=== PATIENT | male | born 1945 | race Caucasian/White ===

== ENCOUNTER 2018-01-23 19:55 | Inpatient (IN) | payer OTHER ==
--- OUTSIDE RECORDS SUMMARY | 2018-01-23 20:20 | XMS REPORT | Continuity of Care Document ---
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[place] 018 [facility] coronary artery with other forms of angina pectoris UNK Active 018 [facility] Malignant neoplasm of 06/21/2017 prostate 018 [facility] C61 Active 018 [facility] WEAKNESS OF RT LEG, Active ACUTE RENAL INSUFFIC 018 [facility] DIZZINESS Active 018 [facility] Discharge Diagnosis: 01/03/2017 Claudication in 017 [facility] peripheral vascular disease Discharge Diagnosis: 01/03/2017 Acute leg pain 017 [facility] LEG PAIN Active 017 [facility] INCISION AND DRAINGE OF Active RT LOWER EXTREMI 017 [facility] Discharge Diagnosis: 10/27/2016 Abnormal hemoglobin 017 [facility] ABNORMAL LABS Active 017 [facility] ACUTE OSTEOMYELITIS OF Active LOWER LEG, MAGGOT 017 [facility] WOUND INFECTION Active 017 [facility] LE EDEMA/LE PAIN Active 017 [facility] REPLACE PICC LINE (PICC Active LINE COMING OUT) 017 [facility] MRSA<sup>1, 2, 3, Active Problem 08/06/2017 Problem 4</sup> 017 added by [facility] Discern Expert. ACUTE OSTEOMYELITIS OF Active RIGHT FOOT, SURGI 017 [facility] WEAKNESS Active 017 [facility] MRSA<sup>1, 2, 3</sup> Active Problem 06/18/2016 Problem MH 015 added by [facility] Discern Expert. FOOT PAIN Active 015 [facility] COMPLICATED CELLULITIS Active 015 [facility] MRSA<sup>1, 2</sup> Active Problem 01/29/2015 Problem MH 015 added by [facility] Discern Expert. LEFT FOOT CELLULITIS, Active PUNCTURE WOUND INF 015 [facility] LEFT 2 ND TOE Active CELLULITIS 013 [facility] TOE INFECTION Active 013 [facility] LEFT TOE CELLULITIS Active 013 [facility] LEFT FOOT INJURY Active 013 [facility] CKD Active Problem 03/08/2017 2.16.840.1. [id number] MRSA infection Active Diagnosis 03/08/2017 2.16.840.1. [id number] 1.11.91603 Foot infection Active Diagnosis 01/10/2017 2.16.840.1. [id number] 1.11.11774 DM Active Problem 03/08/2017 2.16.840.1. 776457.4.39 1.11.33363 HTN Active Problem 03/08/2017 2.16.840.1. 623992.4.39 1.11.02477 Arthritis Active Problem 03/08/2017 2.16.840.1. 388604.4.39 1.11.25814 Hyperlipidemia Active Problem 03/08/2017 2.16.840.1. 862403.4.39 1.11.42112 Hypercholesterolemia Active Problem 03/08/2017 2.16.840.1. 428881.4.39 1.11.30951 Heart disease Active Problem 03/08/2017 2.16.840.1. 072791.4.39 1.11.57144 DM2 Active Diagnosis 01/10/2017 2.16.840.1. 003433.4.39 1.11. Chronic osteomyelitis Active Diagnosis 03/08/2017 2.16.840.1. 237745.4.39 1.11. Absence of toe of left Active Problem 06/19/2017 [facility] Chronic ulcer of great Active Problem 06/19/2017 [facility] toe of left foot with Podiatry fat layer exposed Assoc DM neuro manif type II Active Problem 06/19/2017 [facility] Onychomycosis Active Problem 06/19/2017 [facility] Exostosis of bone of Active Problem 06/19/2017 [facility] Soft tissue mass Active Problem 06/19/2017 [facility] Type 2 diabetes Active Problem 06/19/2017 [facility] mellitus with foot [facility] ulcer Assoc Chronic osteomyelitis Active Problem 06/19/2017 [facility] of toe, left [facility] Ulcer of other part of Active Problem 06/19/2017 [facility] Blister Active Problem 06/19/2017 [facility] Cellulitis of left Active Problem 06/19/2017 [facility] lower limb [facility] Osteomyelitis of right Active Problem 06/19/2017 [facility] foot, unspecified type [facility] Dehiscence of Active Problem 06/19/2017 [facility] amputation stump [facility] Abscess of foot Active Problem 06/19/2017 [facility] Osteomyelitis of foot, Active Diagnosis 09/20/2016 2.16.840.1. right, acute [id number] 1.11.33289 Sepsis Active Diagnosis 09/13/2016 2.16.840.1. [id number] 1.11.30129 Non-pressure chronic Active Diagnosis 09/20/2016 2.16.840.1. ulcer of other part of 575627.4.39 right foot with 1.11.66532 unspecified severity CRISTINA Active Diagnosis 12/07/2016 2.16.840.1. [id number] 1.11.73496 Neuropathy in diabetes Active Diagnosis 09/20/2016 2.16.840.1. [id number] 1.11.45786 Lower limb amputation, Active Problem 02/04/2015 [facility] other toe [facility] Calcaneovalgus Active Problem 02/04/2015 [facility] Diabetes II with Active Problem 02/04/2015 [facility] Neuropathy [facility] Onychomycosis Active Problem 02/04/2015 [facility] Nonunion Active Problem 02/04/2015 [facility] Ulcer of other part of Active Problem 02/04/2015 [facility] foot [facility] Abscess - Foot/Heel Active Problem 02/04/2015 [facility] Charcot''s joint of Active Problem 06/19/2017 [facility] right ankle [facility] Right ankle instability Active Problem 06/19/2017 [facility] Charcot foot due to Active Problem 06/19/2017 [facility] diabetes mellitus [facility] Weakness generalized Active Problem 08/06/2017 [facility] Diabetes Active Problem 08/06/2017 [facility] SOBOE (<span Active Problem 08/06/2017 ID="[id number]">Confi [facility] rmed</span>) HTN - Hypertension Active Problem 08/06/2017 [facility] Hyperlipidemia Active Problem 08/06/2017 [facility] Neuropathy Active Problem 08/06/2017 [facility] Ulcer<sup>4</sup> Active Problem 06/18/2016 right foot [facility] dm2 Active Problem 07/15/2012 [facility] HTN - Hypertension Active Problem 07/15/2012 [facility] Hyperlipidemia Active Problem 07/15/2012 [facility] Neuropathy Active Problem 07/15/2012 [facility] dm2 Active Problem 01/29/2015 [facility] Atherosclerosis of 06/21/2017 aorta [facility] Fatty liver, not 06/21/2017 elsewhere classified [facility] Benign prostatic 06/21/2017 hyperplasia without [facility] lower urinary tract symptoms Bilateral inguinal 06/21/2017 hernia, without [facility] obstruction or gangrene, not specified as recurrent Ulcer<sup>5</sup> Active Problem 08/06/2017 right foot [facility] Stenosis of coronary 08/06/2017 artery stent, initial [facility] encounter Stricture of artery 08/06/2017 [facility] Essential hypertension 08/06/2017 [facility], [facility] Type 2 diabetes 08/06/2017 mellitus without [facility] complications care home use of oral 08/06/2017 hypoglycemic drugs [facility] care home use of 08/06/2017 antithrombotics/antipla [facility] scientific associate use of 08/06/2017 aspirin [facility] Other inspector aligning drug 08/06/2017 therapy [facility] CELLULITIS OF FOOT Active [facility] CELLULITIS NOS Active [facility] CELLULITIS, UNSPECIFIED Active [facility] OTHER SPECIFIED Active DISORDERS OF BONE, [facility] UNSPE NON-PRESSURE CHRONIC Active ULCER OTH PRT UNSP [facility] OTHER ACUTE Active OSTEOMYELITIS, RIGHT [facility] ANKLE A INFECTION FOLLOWING A Active PROCEDURE, INITIAL [facility] ENCOUNTER FOR Active ADJUSTMENT AND [facility] MANAGEMENT PAIN IN LEG, Active UNSPECIFIED [facility] LOCALIZED EDEMA Active [facility] OTHER ACUTE Active OSTEOMYELITIS, [facility] UNSPECIFIED T MYIASIS, UNSPECIFIED Active [facility] OTHER ACUTE Active OSTEOMYELITIS, [facility] UNSPECIFIED S OTH SYMPTOMS AND SIGNS Active MH INVOLVING THE MUS [facility] DISORDER OF KIDNEY AND Active MH URETER, UNSPECIFI [facility] MALIGNANT NEOPLASM OF Active MH PROSTATE [facility] Medications Medication Details Route Status Patient Ordering Order Source Instructions Provider Date acetaminophen-cod 2 tab, Route: Inactive eine #3 PO, Drug Form: 2017 [facility] TAB, Dosing Weight 134.545, kg, Q4H, PRN Pain Score 7-10, Start date: 04/30/17 9:33:00 [employer], Duration: 30 day, Stop date: 05/30/17 9:32:00 CDTNotes: Do not exceed 4gm/day of acetaminophen. (Same as: Tylenol with Codeine # 3) Ondansetron 4 mg, 2 mL, Inactive Route: IVP, 2017 [facility] Drug form: INJ, Q8H, Dosing Weight 134.545, kg, PRN Nausea & Vomiting, Start date: 04/30/17 9:33:00 [employer], Duration: 30 day, Stop date: 05/30/17 9:32:00 CDTNotes: (Same as: [place]) MEDICATION WASTE Product Size: 4 mg Product Wasted: ___ mg Acetaminophen 325 mg, 1 tab, Inactive Route: PO, 2017 [facility] Drug form: TAB, Q4H, Dosing Weight 134.545, kg, PRN Pain Score 4-6, Start date: 04/30/17 9:33:00 [employer], Duration: 30 day, Stop date: 05/30/17 9:32:00 CDTNotes: Do not exceed 4 gm/day. (Same as: Tylenol) Sodium Chloride 750 mL, Rate: Inactive 0.9% IV 750 mL 75 ml/hr, 2017 [facility] Infuse over: 10 hr, Route: IV, Dosing Weight 134.545 kg, Total Volume: 750, Start date: 04/30/17 9:33:00 [employer], Duration: 10 hr, Stop date: 04/30/17 19:32:00 [employer], 2.61, m2 Sodium Chloride 403.635 mL, Inactive 0.9% (Bolus) IV Route: IV, 2017 [facility] ONCE, Dosing Weight 134.545 kg, Start date: 04/30/17 7:32:00 [employer], Stop date: 04/30/17 7:32:00 [employer] Sodium Chloride 1,000 mL, Inactive 0.9% IV 1,000 mL Rate: 100 2017 [facility] ml/hr, Infuse over: 10 hr, Route: IV, Dosing Weight 134.545 kg, Total Volume: 1,000, Start date: 04/30/17 7:32:00 [employer], Duration: 30 day, Stop date: 05/30/17 7:31:00 CDT, 2.61, m2 Tamsulosin 0.4 mg=1 cap, Active hydrochloride 0.4 PO, Daily, # 2018 MG Oral Capsule 30 cap, 0 [Flomax] Refill(s) Amlodipine 5 MG / 1 tab, PO, Active Hydrochlorothiazi Daily, # 30 2017 de 25 MG / tab, 0 valsartan 160 MG Refill(s) Oral Tablet Visipaque 100 mL, Route: Inactive IV, Drug Form: 2017 [facility] SOLN, ONCE, Start date: 03/21/17 10:32:00 [employer], Stop date: 03/21/17 10:32:00 CSTNotes: (Same as: Visipaque). WASTE: F/P - Black; E - Municipal Trash Bin Furosemide 20 MG 20 mg, 1 tab, No Longer Oral Tablet Route: PO, Active 2017 [facility] [Lasix] Drug form: TAB, Daily, Dosing Weight 136.364, kg, Start date: 03/10/17 9:00:00 [employer], Duration: 30 day, Stop date: 04/08/17 9:00:00 CSTNotes: (Same as: Lasix) May cause GI upset. Give with food or milk. Fenofibrate 145 145 mg, 1 tab, No Longer MG Oral Tablet Route: PO, Active 2017 Drug form: TAB, Daily, Dosing Weight 136.364, kg, Start date: 03/10/17 9:00:00 [employer], Duration: 30 day, Stop date: 04/08/17 9:00:00 CSTNotes: (Same as: Tricor) Plavix 75 mg, 1 tab, No Longer Route: PO, Active 2017 [facility] Drug form: TAB, Daily, Dosing Weight 136.364, kg, Start date: 03/10/17 9:00:00 [employer], Duration: 30 day, Stop date: 04/08/17 9:00:00 CSTNotes: (Same As: Plavix) aspirin 81 mg 81 mg, 1 tab, No Longer tablet, enteric Route: PO, Active 2017 [facility] coated Drug form: ECTAB, Daily, Dosing Weight 136.364, kg, Start date: 03/10/17 9:00:00 [employer], Duration: 30 day, Stop date: 04/08/17 9:00:00 CSTNotes: Do not crush or chew. (Same As: Ecotrin) atorvastatin 40 mg, 1 tab, Inactive Route: PO, 2017 [facility] Drug form: TAB, Bedtime, Dosing Weight 136.364, kg, Start date: 03/09/17 21:00:00 [employer], Duration: 30 day, Stop date: 04/07/17 21:00:00 CSTNotes: (Same as: Lipitor) gabapentin 300 MG 300 mg, 1 cap, Inactive Oral Capsule Route: PO, 2017 [facility] Drug form: CAP, TID, Dosing Weight 136.364, kg, Start date: 03/09/17 13:00:00 [employer], Duration: 30 day, Stop date: 04/08/17 9:00:00 CSTNotes: (Same as: Neurontin) Insulin Lispro 4 unit, 0.04 Inactive mL, Route: 2017 [facility] SUB-Q, Drug form: SOLN, TID-Before Meals, Dosing Weight 136.364, kg, PRN Blood Glucose Results, Start date: 03/09/17 9:49:00 [employer], Duration: 30 day, Stop date: 04/08/17 9:48:00 CSTNotes: Roll in palms of hands gently; Do not shake `vigorously. (Same as: Humalog ) "Single Patient Use Only " WASTE: F/P - Black; E - Municipal Trash Bin Stable for 28 days at room temperature. Expires in days from Date Dextrose 50% 12.5 gm, 25 Inactive Syringe mL, Route: 2017 [facility] IVP, Drug Form: INJ, Dosing Weight 136.364, kg, PRN, PRN Blood Glucose Results, Start date: 03/09/17 9:49:00 [employer], Duration: 30 day, Stop date: 04/08/17 9:48:00 [employer] Glucagon 1 mg, Route: Inactive IM, Drug form: 2017 [facility] PDR/INJ, PRN, Dosing Weight 136.364, kg, PRN Blood Glucose Results, Start date: 03/09/17 9:49:00 [employer], Duration: 30 day, Stop date: 04/08/17 9:48:00 [employer] Saline Flush 0.9% 10 ml, Route: Inactive IVP, Drug 2017 [facility] Form: INJ, Dosing Weight 136.364, kg, Q12H, Start date: 03/09/17 9:00:00 [employer], Duration: 30 day, Stop date: 04/07/17 21:00:00 CSTNotes: (Same as: BD Posiflush) aspirin 81 mg 81 mg, 1 tab, Inactive tablet, enteric Route: PO, 2017 [facility] coated Drug form: ECTAB, Daily, Dosing Weight 136.364, kg, Start date: 03/09/17 9:00:00 [employer], Stop date: 03/09/17 12:07:00 CSTNotes: Do not crush or chew. (Same As: Ecotrin) pneumococcal 0.5 mL, Route: Inactive capsular IM, Drug Form: 2017 [facility] polysaccharide INJ, Daily, type 1 vaccine / Start date: pneumococcal 03/09/17 capsular 9:00:00 [employer], polysaccharide Duration: 1 type 10A vaccine doses or / pneumococcal times, Stop capsular date: 03/09/17 polysaccharide 9:00:00 type 11A vaccine CSTNotes: / pneumococcal (Same as: capsular Pneumovax 23) polysaccharide Refrigerate type 12F vaccine / pneumococcal capsular polysacchar Saline Flush 0.9% 10 ml, Route: Inactive IVP, Drug 2017 [facility] Form: INJ, Dosing Weight 136.364, kg, PRN, PRN Line Flush, Start date: 03/09/17 0:31:00 [employer], Duration: 30 day, Stop date: 04/08/17 0:30:00 CSTNotes: (Same as: BD Posiflush) Labetalol 10 mg, 2 mL, Inactive Route: IVP, 2017 [facility] Drug form: INJ, Q10Min, Dosing Weight 136.364, kg, PRN Hypertension, For SBP > 180 mmHg and/or DBP > 105 mmHg, Priority: Routine, Start date: 03/09/17 0:31:00 [employer], Duration: 30 day, Stop date: 04/08/17 0:30:00 CSTNotes: (Same as: Normodyne, Trandate) Push over 2 minutes Give bolus over 2-3 minutes. Aspirin 81 mg, 1 tab, No Longer Route: PO, Active 2017 [facility] Drug form: ECTAB, ONCE, Dosing Weight 136.364, kg, Priority: STAT, Start date: 03/08/17 23:18:00 [employer], Stop date: 03/08/17 23:18:00 CSTNotes: Do not crush or chew. (Same As: Ecotrin) NS (Bolus) IV 1,000 mL, Inactive 1,000 ml/hr, 2017 [facility] Infuse Over: 1 hr, Route: IV, 1,000, Drug form: INJ, ONCE, Priority: STAT, Dosing Weight 136.364 kg, Start date: 03/08/17 21:27:00 [employer], Stop date: 03/08/17 21:27:00 [employer] Saline Flush 0.9% 10 mL, Route: No Longer IVP, Drug Active 2017 [facility] Form: INJ, Dosing Weight 136.364, kg, PRN, PRN Line Flush, Start date: 03/08/17 14:32:00 [employer], Duration: 30 day, Stop date: 04/07/17 14:31:00 CSTNotes: (Same as: BD Posiflush) Cipro 1 tablet Orally Active 500 MG Orally Has..840.1 Twice a day 2016 .767250.4. 391. 68 Doxycycline 1 capsule Orally Active 100 MG Orally Hasan ..840.1 Hyclate Once a day 2016 .991054.4. 391.225 68 Doxycycline 1 capsule Orally Active 100 MG Orally Hasan 840.1 Hyclate Once a day 2016 .797512.4. [id number] 68 tramadol 50 mg 50 mg=1 tab, Active oral tablet PO, Q12H, X 5 2016 day, # 10 tab, 0 Refill(s) vancomycin 1 g 1.25 gm, IV, Active intravenous Q12H, X 42 2016 injection day, # 42 bag, 0 Refill(s), other heparin sodium, 5,000 unit, 1 No Longer porcine 2500 mL, Route: Active 2016 [facility] UNT/ML Injectable SUB-Q, Drug Solution form: INJ, Q8H, Dosing Weight 129.091, kg, Start date: 12/02/16 0:00:00 CDT, Duration: 30 day, Stop date: 12/31/16 16:00:00 CDTNotes: porcine heparin RN-Do not give RN-Do not Inactive vanc till trough give vanc till 2016 [facility] drawn12/01/16@10:3 trough 0 drawn12/01/16@1 0:30, Attn:RN, Drug form: MISC, Route: MISC, ONCE, 12/01/16 10:00:00 CDT, Stop date: 12/01/16 10:00:00 CDT Furosemide 20 MG 20 mg, 1 tab, No Longer Oral Tablet Route: PO, Active 2016 [facility] [Lasix] Drug form: TAB, Daily, Dosing Weight 129.091, kg, Start date: 12/01/16 9:00:00 CDT, Duration: 30 day, Stop date: 12/30/16 9:00:00 CDTNotes: (Same as: Lasix) May cause GI upset. Give with food or milk. Fenofibrate 145 145 mg, 1 tab, No Longer MG Oral Tablet Route: PO, Active 2016 [facility] Drug form: TAB, Daily, Dosing Weight 129.091, kg, Start date: 12/01/16 9:00:00 CDT, Duration: 30 day, Stop date: 12/30/16 9:00:00 CDTNotes: (Same as: Tricor) Plavix 75 mg, 1 tab, No Longer Route: PO, Active 2016 [facility] Drug form: TAB, Daily, Dosing Weight 129.091, kg, Start date: 12/01/16 9:00:00 CDT, Duration: 30 day, Stop date: 12/30/16 9:00:00 CDTNotes: (Same As: Plavix) aspirin 81 mg 81 mg, 1 tab, No Longer tablet, enteric Route: PO, Active 2016 [facility] coated Drug form: ECTAB, Daily, Dosing Weight 129.091, kg, Start date: 12/01/16 9:00:00 CDT, Duration: 30 day, Stop date: 12/30/16 9:00:00 CDTNotes: Do not crush or chew. (Same As: Ecotrin) Hydrochlorothiazi 25 mg, 1 tab, No Longer de Route: PO, 2016 [facility] Drug form: TAB, Daily, Dosing Weight 129.091, kg, Start date: 12/01/16 9:00:00 CDT, Duration: 30 day, Stop date: 12/30/16 9:00:00 CDTNotes: (Same as: Hydrodiuril) With food. potassium 10 mEq, 1 tab, No Longer chloride 10 mEq Route: PO, 2016 [facility] oral tablet, Drug form: extended release ERTAB, Daily, Dosing Weight 129.091, kg, Start date: 12/01/16 9:00:00 CDT, Duration: 30 day, Stop date: 12/30/16 9:00:00 CDTNotes: (Same as: K-Dur 10) "Do Not Crush" With food and full glass of water Amlodipine 10 MG 1 tab, Route: No Longer / valsartan 320 PO, Dosing Active 2016 [facility] Oral Tablet Weight 129.091, kg, Daily, Start date: 12/01/16 9:00:00 CDT, Duration: 30 day, Stop date: 12/30/16 9:00:00 CDT valsartan 320 mg, 2 tab, No Longer Route: PO, 2016 [facility] Drug form: TAB, Daily, Start date: 11/30/16 21:00:00 CDT, Duration: 30 day, Stop date: 12/30/16 9:00:00 CDTNotes: Same as Reillyvan gabapentin 300 MG 300 mg, 1 cap, No Longer Oral Capsule Route: PO, Active 2016 [facility] Drug form: CAP, TID, Dosing Weight 129.091, kg, Start date: 11/30/16 21:00:00 CDT, Duration: 30 day, Stop date: 12/30/16 17:00:00 CDTNotes: (Same as: Neurontin) insulin glargine 20 unit, 0.2 No Longer mL, Route: Active 2016 [facility] SUB-Q, Drug form: SOLN, Bedtime, Start date: 11/30/16 21:00:00 CDT, Duration: 30 day, Stop date: 12/29/16 21:00:00 CDTNotes: (Same as: Lantus) Do not hold insulin without contacting prescriber WASTE: F/P - Black; E - Municipal Trash Bin "single patient use only" atorvastatin 40 mg, 1 tab, No Longer Route: PO, Active 2016 [facility] Drug form: TAB, Bedtime, Dosing Weight 129.091, kg, Start date: 11/30/16 21:00:00 CDT, Duration: 30 day, Stop date: 12/29/16 21:00:00 CDTNotes: (Same as: Lipitor) amLODIPine 10 mg, 2 tab, No Longer Route: PO, Active 2016 [facility] Drug form: TAB, Daily, Start date: 11/30/16 21:00:00 CDT, Duration: 30 day, Stop date: 12/30/16 9:00:00 CDTNotes: (Same as: Norvasc) Insulin Glargine 20 unit, Inactive 100 UNT/ML Route: SUB-Q, 2016 [facility] Injectable Bedtime, Solution Dosing Weight 129.091, kg, Start date: 11/30/16 21:00:00 CDT, Duration: 30 day, Stop date: 12/29/16 21:00:00 CDT Docusate Sodium 100 mg, 1 cap, No Longer 100 MG Oral Route: PO, Active 2016 [facility] Capsule Drug form: CAP, BID, Dosing Weight 129.091, kg, PRN Constipation, Start date: 11/30/16 17:31:00 CDT, Duration: 30 day, Stop date: 12/30/16 17:30:00 CDTNotes: (Same as: Colace) (Do Not Crush) vancomycin + 1,250 mg, No Longer sodium chloride Route: IVPB, Active 2016 [facility] 0.9% 250 mL INJ [id number], Start (for IV set) 250 date: 11/30/16 mL 11:00:00 CDT, Duration: 30 day, Stop date: 12/29/16 23:00:00 CDT, ABX Indication: Skin/Soft Tissue InfectionNotes : TIME CRITICAL MEDICATION (Same As: Vancocin) Infusion rate 2000 mg: infuse over 2.5 hours MEDICATION WASTE Product Size: 1000 mg Product Wasted: ___ mg influenza virus 0.5 mL, Route: Inactive vaccine, IM, Drug Form: 2016 [facility] inactivated SUSP, Daily, Start date: 11/30/16 9:00:00 CDT, Duration: 1 doses or times, Stop date: 11/30/16 9:00:00 CDTNotes: (Same as: Fluzone Quadrivalent, Fluarix Quadrivalent) For 3 years of age and older (0.5 mL IM) Shake well before use vancomycin 1.5 gm, 250 Inactive mL, Route: 2016 [facility] IVPB, Drug form: INJ, ONCE, Start date: 11/29/16 22:42:00 CDT, Stop date: 11/29/16 22:42:00 CDT, ABX Indication: Skin/Soft Tissue InfectionNotes : TIME CRITICAL MEDICATION Same as: Vancocin-NS (premixed) Infusion rate 2000 mg: infuse over 2.5 hours 3 ML insulin 34units, Active degludec 100 SUB-Q, 2016 [facility] UNT/ML Pen Bedtime, 0 Injector Refill(s) [Tresiba] Insulin Lispro 1 unit, 0.01 No Longer mL, Route: Active 2016 [facility] SUB-Q, Drug form: SOLN, TID-Before Meals, Dosing Weight 87.727, kg, PRN Blood Glucose Results, Start date: 11/29/16 21:35:00 CDT, Duration: 30 day, Stop date: 12/29/16 21:34:00 CDTNotes: Roll in palms of hands gently; Do not shake `vigorously. (Same as: Humalog ) "Single Patient Use Only " WASTE: F/P - Black; E - Municipal Trash Bin Stable for 28 days at room temperature. Expires in days from Date Dextrose 50% 25 gm, 50 mL, No Longer Syringe Route: IVP, Active 2016 [facility] Drug Form: INJ, Dosing Weight 87.727, kg, PRN, PRN Blood Glucose Results, Start date: 11/29/16 21:35:00 CDT, Duration: 30 day, Stop date: 12/29/16 21:34:00 CDT Glucagon 1 mg, Route: No Longer IM, Drug form: Active 2016 [facility] PDR/INJ, PRN, Dosing Weight 87.727, kg, PRN Blood Glucose Results, Start date: 11/29/16 21:35:00 CDT, Duration: 30 day, Stop date: 12/29/16 21:34:00 CDT Zosyn 3.375 gm, No Longer Route: IVPB, Active 2016 [facility] [id number], Dosing Weight 87.727, kg, CrCl >=20 ml/min infuse over 4 hours, Start date: 11/29/16 21:00:00 CDT, Duration: 10 day, Stop date: 12/10/16 0:00:00 CDT, ABX Indication: Skin/Soft Tissue InfectionNotes : (Same as: Zosyn) Dosing based on Piperacillin component MEDICATION WASTE Product Size: 3375 mg Product Wasted: ___ mg Vancomycin 1 ea, Route: No Longer FABIAAN STOVALL, Active 2016 [facility] Dosing Weight 87.727, kg, Start date: 11/29/16 21:00:00 CDT, day, Stop date: 11/29/16 21:00:00 CDT, Pharmacy to dose, ABX Indication: Skin/Soft Tissue Infection Ondansetron 4 mg, 2 mL, No Longer Route: IVP, Active 2016 [facility] Drug form: INJ, Q6H, Dosing Weight 87.727, kg, PRN Nausea & Vomiting, Start date: 11/29/16 20:55:00 CDT, Duration: 30 day, Stop date: 12/29/16 20:54:00 CDTNotes: (Same as: [place]) MEDICATION WASTE Product Size: 4 mg Product Wasted: ___ mg Acetaminophen 325 mg, 1 tab, No Longer Route: PO, Active 2016 [facility] Drug form: TAB, Q4H, Dosing Weight 87.727, kg, PRN Pain Score 4-6, Start date: 11/29/16 20:55:00 CDT, Duration: 30 day, Stop date: 12/29/16 20:54:00 CDTNotes: Do not exceed 4 gm/day. (Same as: Tylenol) Morphine 2 mg, 1 mL, No Longer Route: IVP, Active 2016 [facility] Drug form: SOLN, Q4H, Dosing Weight 87.727, kg, PRN Pain Score 7-10, Start date: 11/29/16 20:55:00 CDT, Duration: 30 day, Stop date: 12/29/16 20:54:00 CDT Vantin 1 tablet Orally Active 200 MG Orally Aguilar .16.840.1 every 12 hrs 2016 .[id number]. [id number] Saline Flush 0.9% 10 mL, Route: Inactive IVP, Drug 2016 [facility] Form: INJ, Dosing Weight 87.727, kg, PRN, PRN Line Flush, Start date: 10/24/16 10:37:00 CDT, Duration: 30 day, Stop date: 11/23/16 10:36:00 CDTNotes: (Same as: BD Posiflush) Ciprofloxacin 500 500 mg=1 tab, Active MG Oral Tablet PO, Q12H, X 14 2016 [Cipro] day, # 28 tab, 1 Refill(s) Acetaminophen 300 1 - 2 tab, PO, Active MG / Codeine Q6H, PRN Pain, 2016 Phosphate 30 MG X 4 day, # 32 Oral Tablet tab, 0 [Tylenol with Refill(s) Codeine #3] ceFAZolin 2 g/100 2 bd=793 mL, Active mL-NaCl 0.9% IVPB, Q8H, # 2017 [facility] intravenous 10116 mL, 0 solution Refill(s) Ancef 2 gm, 100 mL, No Longer Route: IVPB, Active 2016 [facility] Drug form: INJ, Q8H, Dosing Weight 129.9, kg, Start date: 09/19/16 17:00:00 CDT, Duration: 14 day, Stop date: 10/03/16 13:00:00 CDT, ABX Indication: Bone/Joint InfectionNotes : Same as: Ancef WAIT for vanco WAIT for Inactive trough draw prior vanco trough 2016 to giving dose on draw prior to 09/19 giving dose on 09/19, reminder, Drug form: MISC, Route: MISC, ONCE, 09/19/16 16:30:00 CDT, Stop date: 09/19/16 16:30:00 CDT Vancomycin 1,500 mg, 250 No Longer mL, Route: Active 2016 [facility] IVPB, Drug form: INJ, Q12H, Dosing Weight 131.818, kg, Start date: 09/17/16 17:00:00 CDT, Duration: 14 day, Stop date: 10/01/16 5:30:00 CDT, ABX Indication: Bone/Joint InfectionNotes : TIME CRITICAL MEDICATION Same as: Vancocin-NS (premixed) Infusion rate 2001 mg: infuse over 2.5 hours ondansetron Route: IV, Inactive (ANES) Drug form: 2016 [facility] INJ, ONCE, Stop date: 09/17/16 9:20:00 CDT fentaNYL (ANES) Route: IV, Inactive Drug form: 2016 [facility] INJ, ONCE, Stop date: 09/17/16 9:20:00 CDT lidocaine (ANES) Route: IV, Inactive Drug form: 2016 [facility] INJ, ONCE, Stop date: 09/17/16 9:20:00 CDT propofol (ANES) Route: IV, Inactive Drug form: 2016 [facility] INJ, ONCE, Stop date: 09/17/16 9:20:00 CDT Streptococcus 0.5 mL, Route: Inactive pneumoniae IM, Drug Form: 2016 [facility] serotype 1 INJ, Daily, capsular antigen Start date: diphtheria [id number] 09/17/16 protein conjugate 9:00:00 CDT, vaccine / Duration: 1 Streptococcus doses or pneumoniae times, Stop serotype 14 date: 09/17/16 capsular antigen 9:00:00 diphtheria [id number] CDTNotes: protein conjugate Shake well vaccine / prior to use Streptococcus (Same as: pneumoniae Prevnar 13) serotype 18C capsular antigen d vancomycin (ANES) Route: IV, Inactive (ANES) Drug form: 2016 [facility] INJ, Start date: 09/17/16 8:57:00 CDT, Stop date: 09/17/16 9:57:00 CDT Lactated Ringers 1,000 mL, No Longer 1,000 mL Rate: 25 Active 2016 [facility] ml/hr, Infuse over: 40 hr, Route: IV, Dosing Weight 131.818 kg, Total Volume: 1,000, Start date: 09/17/16 8:51:00 CDT, Duration: 1 day, Stop date: 09/18/16 8:50:00 CDT LR 1000 mL INJ Route: IV, Inactive (ANES) Total Volume: 2016 [facility] 1,000, Start date: 09/17/16 8:41:00 CDT, Stop date: 09/17/16 9:41:00 CDT Vancomycin 1,000 mg, Inactive Route: IVPB, 2016 [facility] [id number], Dosing Weight 131.818, kg, Start date: 09/16/16 11:00:00 CDT, Duration: 1 day, Stop date: 09/16/16 11:00:00 CDT, ABX Indication: Bone/Joint InfectionNotes : TIME CRITICAL MEDICATION (Same As: Vancocin) Infusion rate 2001 mg: infuse over 2.5 hours MEDICATION WASTE Product Size: 1000 mg Product Wasted: ___ mg pneumococcal 0.5 mL, Route: Inactive capsular IM, Drug Form: 2016 [facility] polysaccharide INJ, Daily, type 1 vaccine / Start date: pneumococcal 09/16/16 capsular 9:00:00 CDT, polysaccharide Stop date: type 10A vaccine 09/16/16 / pneumococcal 12:00:00 capsular CDTNotes: polysaccharide (Same as: type 11A vaccine Pneumovax 23) / pneumococcal Refrigerate capsular polysaccharide type 12F vaccine / pneumococcal capsular polysacchar Streptococcus 0.5 mL, Route: Inactive pneumoniae IM, Daily, 2016 [facility] serotype 1 Start date: capsular antigen 09/16/16 diphtheria [id number] 9:00:00 CDT, protein conjugate Duration: 1 vaccine / doses or Streptococcus times, Stop pneumoniae date: 09/16/16 serotype 14 9:00:00 CDT capsular antigen diphtheria [id number] protein conjugate vaccine / Streptococcus pneumoniae serotype 18C capsular antigen d Hydrochlorothiazi 25 mg, 1 tab, No Longer de Route: PO, Active 2016 [facility] Drug form: TAB, Daily, Dosing Weight 131.818, kg, Start date: 09/16/16 9:00:00 CDT, Duration: 30 day, Stop date: 10/15/16 9:00:00 CDTNotes: (Same as: Hydrodiuril) With food. valsartan 320 mg, 2 tab, No Longer Route: PO, Active 2016 [facility] Drug form: TAB, Daily, Dosing Weight 131.818, kg, Start date: 09/16/16 9:00:00 CDT, Duration: 30 day, Stop date: 10/15/16 9:00:00 CDTNotes: Same as Alexandra Amlodipine 10 mg, 2 tab, No Longer Route: PO, Active 2016 [facility] Drug form: TAB, Daily, Dosing Weight 131.818, kg, Start date: 09/16/16 9:00:00 CDT, Duration: 30 day, Stop date: 10/15/16 9:00:00 CDTNotes: (Same as: Norvasc) gabapentin 300 MG 300 mg, 1 cap, No Longer Oral Capsule Route: PO, Active 2016 [facility] Drug form: CAP, TID, Dosing Weight 131.818, kg, Start date: 09/16/16 9:00:00 CDT, Duration: 30 day, Stop date: 10/15/16 21:00:00 CDTNotes: (Same as: Neurontin) Plavix 75 mg, 1 tab, No Longer Route: PO, 2016 [facility] Drug form: TAB, Daily, Dosing Weight 131.818, kg, Start date: 09/16/16 9:00:00 CDT, Duration: 30 day, Stop date: 10/15/16 9:00:00 CDTNotes: (Same As: Plavix) doxycycline 100 mg=1 cap, No Longer hyclate 100 MG PO, Q12H, 0 2016 [facility] Oral Capsule Refill(s) Furosemide 20 MG 20 mg=1 tab, Active Oral Tablet PO, Daily, # 2016 [Lasix] 30 tab, 0 Refill(s) multivitamin 1 tab, PO, Active Daily, 0 2016 Refill(s) atorvastatin 40 40 mg=1 tab, Active mg oral tablet PO, Bedtime, # 2016 30 tab, 0 Refill(s) potassium 10 mEq=1 cap, Active chloride 10 mEq PO, Daily, 0 2016 oral capsule, Refill(s) extended release aspirin 81 mg 81 mg, 1 tab, No Longer tablet, enteric Route: PO, 2016 [facility] coated Drug form: ECTAB, Q24H, Dosing Weight 131.818, kg, Start date: 09/16/16 4:00:00 CDT, Duration: 30 day, Stop date: 10/15/16 4:00:00 CDTNotes: Do not crush or chew. (Same As: Ecotrin) Saline Flush 0.9% 10 ml, Route: No Longer IVP, Drug Active 2016 [facility] Form: INJ, Dosing Weight 131.818, kg, PRN, PRN Line Flush, Start date: 09/16/16 2:58:00 CDT, Duration: 30 day, Stop date: 10/16/16 2:57:00 CDTNotes: (Same as: BD Posiflush) Sodium Chloride 1,000 mL, No Longer 0.154 MEQ/ML Rate: 125 2016 [facility] Injectable ml/hr, Infuse Solution over: 8 hr, Route: IV, Dosing Weight 131.818 kg, Total Volume: 1,000, Start date: 09/16/16 2:58:00 CDT, Duration: 30 day, Stop date: 10/16/16 2:57:00 CDT Morphine 2 mg, 1 mL, No Longer Route: IVP, Active 2016 [facility] Drug form: SOLN, Q3H, Dosing Weight 131.818, kg, PRN Pain Score 7-10, Start date: 09/16/16 2:58:00 CDT, Duration: 30 day, Stop date: 10/16/16 2:57:00 CDT Insulin, Aspart, 8 unit, 0.08 No Longer Human mL, Route: Active 2016 [facility] SUB-Q, Drug form: SOLN, TID-Before Meals, Dosing Weight 131.818, kg, PRN Blood Glucose Results, Start date: 09/16/16 2:56:00 CDT, Duration: 30 day, Stop date: 10/16/16 2:55:00 CDTNotes: Roll in palms of hands gently; Do not shake vigorously. (Same as: NovoLOG) "single patient use only" WASTE: F/P - Black; E - Municipal Trash Bin Stable for 28 days at room temperature. Expires in days from Date Dextrose 50% 12.5 gm, 25 No Longer Syringe mL, Route: Active 2016 [facility] IVP, Drug Form: INJ, Dosing Weight 131.818, kg, PRN, PRN Blood Glucose Results, Start date: 09/16/16 2:56:00 CDT, Duration: 30 day, Stop date: 10/16/16 2:55:00 CDT Glucagon 1 mg, Route: No Longer IM, Drug form: Active 2016 [facility] PDR/INJ, PRN, Dosing Weight 131.818, kg, PRN Blood Glucose Results, Start date: 09/16/16 2:56:00 CDT, Duration: 30 day, Stop date: 10/16/16 2:55:00 CDT Doxycycline 1 capsule Orally Active 100 MG Orally Hasan .16.840.1 Hyclate every 12 hrs 2016 .[id number]. [id number] 68 Vitamin C 1,000 mg, 2 No Longer tab, Route: Active 2016 [facility] PO, Drug form: TAB, Daily, Dosing Weight 132, kg, Start date: 06/16/16 9:00:00 CDT, Duration: 30 day, Stop date: 07/15/16 9:00:00 CDTNotes: (Same as: Vitamin C) Acetaminophen 300 1 tab, PO, No Longer MG / Codeine Q6H, PRN Pain Active 2016 [facility] Phosphate 30 MG Score 1-3, # Oral Tablet 24 tab, 0 [Tylenol with Refill(s) Codeine #3] vancomycin 1.5 1,500 kv=762 Active g/250 mL-NaCl mL, IVPB, 2016 0.9% intravenous [id number], # 30 solution bag, 1 Refill(s) Docusate Sodium 100 mg=1 cap, Active 100 MG Oral PO, BID, PRN 2016 [facility] Capsule Constipation, # 30 cap, 0 Refill(s) Vitamin C 1000 mg 1,000 mg, PO, Active oral tablet Daily, # 30 2016 [facility] tab, 0 Refill(s) Acetaminophen 300 1 tab, Route: Inactive MG / Codeine PO, Drug Form: 2016 [facility] Phosphate 30 MG TAB, Dosing Oral Tablet Weight 132, [Tylenol with kg, Q6H, PRN Codeine #3] Pain Score 1-3, Start date: 06/15/16 11:13:00 CDT, Duration: 30 day, Stop date: 07/15/16 11:12:00 CDTNotes: Do not exceed 4gm/day of acetaminophen. (Same as: Tylenol with Codeine # 3) WAIT for vanco WAIT for Inactive trough draw prior vanco trough 2016 to dose on 06/14 @ draw prior to 11:00 dose on 06/14 @ 11:00, reminder, Drug form: MISC, Route: MISC, ONCE, 06/14/16 10:00:00 CDT, Stop date: 06/14/16 10:00:00 CDT Lovenox 40 mg, 0.4 mL, No Longer Route: SUB-Q, [facility] 2016 [facility] Drug form: INJ, Daily, Dosing Weight 132, kg, Start date: 06/13/16 8:00:00 CDT, Duration: 30 day, Stop date: 07/12/16 8:00:00 CDTNotes: (Same as: Lovenox) Hydralazine 10 mg, 0.5 mL, No Longer Route: IV, 2016 [facility] Drug form: INJ, Q6H, Dosing Weight 132, kg, PRN Elevated BP, Start date: 06/13/16 4:24:00 CDT, Duration: 30 day, Stop date: 07/13/16 4:23:00 CDTNotes: (Same as: Apresoline) Push over 5 minutes Vancomycin 1,500 mg, 250 No Longer mL, Route: [facility] 2016 [facility] IVPB, Drug form: INJ, [id number], Dosing Weight 132, kg, Start date: 06/12/16 21:00:00 CDT, Duration: 30 day, Stop date: 07/12/16 11:00:00 CDTNotes: TIME CRITICAL MEDICATION Same as: Vancocin-NS (premixed) Infusion rate 2001 mg: infuse over 2.5 hours Hydromorphone 0.5 mg, 0.5 No Longer mL, Route: IV, 2016 [facility] Drug form: INJ, Q3H, Dosing Weight 132, kg, PRN Pain Score 7-10, Start date: 06/12/16 17:52:00 CDT, Duration: 30 day, Stop date: 07/12/16 17:51:00 CDT sodium chloride 1,000 mL, No Longer 0.9% 1000 ml INJ Rate: 100 2016 [facility] 1,000 mL ml/hr, Infuse over: 10 hr, Route: IV, Dosing Weight 132 kg, Total Volume: 1,000, Start date: 06/12/16 17:52:00 CDT, Duration: 30 day, Stop date: 07/12/16 17:51:00 CDT Acetaminophen 325 1 tab, Route: No Longer MG / Hydrocodone PO, Drug Form: 2016 [facility] Bitartrate 5 MG TAB, Dosing Oral Tablet Weight 132, kg, Q4H, PRN Pain Score 4-6, Start date: 06/12/16 17:52:00 CDT, Duration: 30 day, Stop date: 07/12/16 17:51:00 CDTNotes: (Same as: [place] 325/5) Do not exceed 4gm/day of acetaminophen. Acetaminophen 325 2 tab, Route: No Longer MG / Hydrocodone PO, Drug Form: Active 2016 [facility] Bitartrate 10 MG TAB, Dosing Oral Tablet Weight 132, kg, Q4H, PRN Pain Score 7-10, Start date: 06/12/16 17:52:00 CDT, Duration: 30 day, Stop date: 07/12/16 17:51:00 CDTNotes: Do not exceed 4gm/day of acetaminophen. (Same as: [place] 325/10) Calcium Chloride 1,000 mL, No Longer 0.0014 MEQ/ML / Rate: 100 Active 2016 [facility] Potassium ml/hr, Infuse Chloride 0.004 over: 10 hr, MEQ/ML / Sodium Route: IV, Chloride 0.103 Dosing Weight MEQ/ML / Sodium 132 kg, Total Lactate 0.028 Volume: 1,000, MEQ/ML Injectable Start date: Solution 06/12/16 17:52:00 CDT, Duration: 30 day, Stop date: 07/12/16 17:51:00 CDT ondansetron Route: IV, Inactive (ANES) Drug form: 2016 [facility] INJ, ONCE, Stop date: 06/12/16 17:51:00 CDT fentaNYL (ANES) Route: IV, Inactive Drug form: 2016 [facility] INJ, ONCE, Stop date: 06/12/16 17:51:00 CDT ceFAZolin (ANES) Route: IV, Inactive (ANES) Drug form: 2016 [facility] INJ, Start date: 06/12/16 17:15:00 CDT, Stop date: 06/12/16 18:15:00 CDT LR 1000 mL INJ Route: IV, Inactive (ANES) Total Volume: 2016 [facility] 1,000, Start date: 06/12/16 17:00:00 CDT, Stop date: 06/12/16 18:00:00 CDT Calcium Chloride 1,000 mL, Inactive 0.0014 MEQ/ML / Rate: 25 2016 [facility] Potassium ml/hr, Infuse Chloride 0.004 over: 40 hr, MEQ/ML / Sodium Route: IV, Chloride 0.103 Dosing Weight MEQ/ML / Sodium 132 kg, Total Lactate 0.028 Volume: 1,000, MEQ/ML Injectable Start date: Solution 06/12/16 13:05:00 CDT, Duration: 30 day, Stop date: 07/12/16 13:04:00 CDT Draw vancomycin Draw Inactive trough level 0-30 vancomycin 2016 min prior to next trough level dose 0-30 min prior to next dose, see order comments, Drug form: MISC, Route: MISC, Q24H, 06/12/16 8:00:00 CDT, Duration: 1 doses or times, Stop date: 06/12/16 8:00:00 CDT hydrocortisone 1 appl, Route: No Longer topical 1% cream TOP, BID, Drug Active 2016 [facility] form: CRM, PRN Itching, Start date: 06/11/16 20:59:00 CDT, Duration: 30 day, Stop date: 07/11/16 20:58:00 CDT sodium chloride 1,000 mL, No Longer 0.9% 1000 ml INJ Rate: 100 Active 2016 [facility] 1,000 mL ml/hr, Infuse over: 10 hr, Route: IV, Dosing Weight 132 kg, Total Volume: 1,000, Start date: 06/11/16 12:51:00 CDT, Duration: 30 day, Stop date: 07/11/16 12:50:00 CDT ondansetron Route: IV, Inactive (ANES) Drug form: 2016 INJ, ONCE, Stop date: 06/11/16 9:11:00 CDT midazolam (ANES) Route: IV, Inactive Drug form: 2016 SOLN, ONCE, Stop date: 06/11/16 9:11:00 CDT fentaNYL (ANES) Route: IV, Inactive Drug form: 2016 INJ, ONCE, Stop date: 06/11/16 9:11:00 CDT lidocaine (ANES) Route: IV, Inactive Drug form: 2016 [facility] INJ, ONCE, Stop date: 06/11/16 9:11:00 CDT propofol (ANES) Route: IV, Inactive Drug form: 2016 [facility] INJ, ONCE, Stop date: 06/11/16 9:11:00 CDT LR 1000 mL INJ Route: IV, Inactive (ANES) Total Volume: 2016 [facility] 1,000, Start date: 06/11/16 8:29:00 CDT, Stop date: 06/11/16 9:29:00 CDT Calcium Chloride 1,000 mL, Inactive 0.0014 MEQ/ML / Rate: 25 2016 [facility] Potassium ml/hr, Infuse Chloride 0.004 over: 40 hr, MEQ/ML / Sodium Route: IV, Chloride 0.103 Dosing Weight MEQ/ML / Sodium 132 kg, Total Lactate 0.028 Volume: 1,000, MEQ/ML Injectable Start date: Solution 06/11/16 8:25:00 CDT, Duration: 30 day, Stop date: 07/11/16 8:24:00 CDT Vancomycin trough Vancomycin Inactive trough, please [address] [place] [address] inform pharmacy of trough level, Drug form: MISC, Route: MISC, ONCE, 06/10/16 20:30:00 CDT, Stop date: 06/10/16 20:30:00 CDT Hydrochlorothiazi 25 mg, 1 tab, No Longer de 25 MG Oral Route: PO, Active 2016 [facility] Tablet Drug form: TAB, Daily, Dosing Weight 132, kg, Start date: 06/10/16 9:00:00 CDT, Duration: 30 day, Stop date: 07/09/16 9:00:00 CDTNotes: (Same as: Hydrodiuril) With food. valsartan 320 mg, 2 tab, No Longer Route: PO, Active 2016 [facility] Drug form: TAB, Daily, Dosing Weight 132, kg, Start date: 06/10/16 9:00:00 CDT, Duration: 30 day, Stop date: 07/09/16 9:00:00 CDTNotes: Same as Diovan Norvasc 10 mg, 2 tab, No Longer Route: PO, Active 2016 [facility] Drug form: TAB, Daily, Dosing Weight 132, kg, Start date: 06/10/16 9:00:00 CDT, Duration: 30 day, Stop date: 07/09/16 9:00:00 CDTNotes: (Same as: Norvasc) Fenofibrate 145 145 mg, 1 tab, No Longer MG Oral Tablet Route: PO, 2016 [facility] Drug form: TAB, Daily, Dosing Weight 132, kg, Start date: 06/10/16 9:00:00 CDT, Duration: 30 day, Stop date: 07/09/16 9:00:00 CDTNotes: (Same as: Tricor) Plavix 75 mg, 1 tab, No Longer Route: PO, 2016 [facility] Drug form: TAB, Daily, Dosing Weight 132, kg, Start date: 06/10/16 9:00:00 CDT, Duration: 30 day, Stop date: 07/09/16 9:00:00 CDTNotes: (Same As: Plavix) aspirin 81 mg 81 mg, 1 tab, No Longer tablet, enteric Route: PO, 2016 [facility] coated Drug form: ECTAB, Daily, Dosing Weight 132, kg, Start date: 06/10/16 9:00:00 CDT, Duration: 30 day, Stop date: 07/09/16 9:00:00 CDTNotes: Do not crush or chew. (Same As: Ecotrin) vancomycin + 2,000 mg, No Longer sodium chloride Route: IVPB, 2016 [facility] 0.9% 500 mL INJ [id number], Start (for IV set) 500 date: 06/09/16 mL 21:00:00 CDT, Duration: 30 day, Stop date: 07/09/16 9:00:00 CDTNotes: TIME CRITICAL MEDICATION (Same As: Vancocin) Infusion rate 2001 mg: infuse over 2.5 hours MEDICATION WASTE Product Size: 1000 mg Product Wasted: ___ mg Lipitor 20 mg, 2 tab, No Longer Route: PO, 2016 [facility] Drug form: TAB, Bedtime, Dosing Weight 132, kg, Start date: 06/09/16 21:00:00 CDT, Duration: 30 day, Stop date: 07/08/16 21:00:00 CDTNotes: (Same As: Lipitor) Metformin 500 mg, 1 tab, No Longer hydrochloride 500 Route: PO, Active 2016 [facility] Oral Tablet Drug form: TAB, BID-Meals, Dosing Weight 132, kg, Start date: 06/09/16 17:00:00 CDT, Duration: 30 day, Stop date: 07/09/16 8:00:00 CDTNotes: (Same as: Glucophage) Take with meal gabapentin 300 MG 300 mg, 1 cap, No Longer Oral Capsule Route: PO, Active 2016 [facility] Drug form: CAP, TID, Dosing Weight 132, kg, Start date: 06/09/16 13:00:00 CDT, Duration: 30 day, Stop date: 07/09/16 9:00:00 CDTNotes: (Same as: Neurontin) Vancomycin 1 ea, Route: Inactive MISC, Drug 2016 [facility] Form: INJ, Dosing Weight 132, kg, ONCALL, Start date: 06/09/16 11:00:00 CDT, Duration: 1 doses or times, Pharmacy to doseNotes: TIME CRITICAL MEDICATION (Same As: Vancocin) Infusion rate 2001 mg: infuse over 2.5 hours MEDICATION WASTE Product Size: 1000 mg Product Wasted: ___ mg Morphine 2 mg, 1 mL, No Longer Route: IVP, Active 2016 [facility] Drug form: INJ, Q4H, Dosing Weight 132, kg, PRN Pain Score 6-10, Start date: 06/09/16 10:11:00 CDT, Duration: 30 day, Stop date: 07/09/16 10:10:00 CDTNotes: (Same as:MORPhine Sulfate) Acetaminophen 325 1 tab, Route: No Longer MG / Hydrocodone PO, Drug Form: Active 2016 [facility] Bitartrate 10 MG TAB, Dosing Oral Tablet Weight 132, [[place] 10/325] kg, Q4H, PRN Pain Score 6-10, Start date: 06/09/16 10:11:00 CDT, Duration: 30 day, Stop date: 07/09/16 10:10:00 CDTNotes: Do not exceed 4gm/day of acetaminophen. (Same as: [place] 325/10) Acetaminophen 325 1 tab, Route: No Longer MG / Hydrocodone PO, Drug Form: Active 2016 [facility] Bitartrate 5 MG TAB, Dosing Oral Tablet Weight 132, [[place] 5/325] kg, Q4H, PRN Pain Score 4-6, Start date: 06/09/16 10:11:00 CDT, Duration: 30 day, Stop date: 07/09/16 10:10:00 CDTNotes: (Same as: [place] 325/5) Do not exceed 4gm/day of acetaminophen. Tylenol 650 mg, 2 tab, No Longer Route: PO, Active 2016 [facility] Drug form: TAB, Q6H, Dosing Weight 132, kg, PRN Pain 1-3/Temp > 100.4 F, Start date: 06/09/16 10:11:00 CDT, Duration: 30 day, Stop date: 07/09/16 10:10:00 CDTNotes: Do not exceed 4 gm/day. (Same as: Tylenol) Insulin, Aspart, 3 unit, 0.03 No Longer Human mL, Route: Active 2016 [facility] SUB-Q, Drug form: SOLN, Bedtime, Dosing Weight 132, kg, PRN Blood Glucose Results, Start date: 06/09/16 9:35:00 CDT, Duration: 30 day, Stop date: 07/09/16 9:34:00 CDTNotes: Roll in palms of hands gently; Do not shake vigorously. (Same as: NovoLOG) "single patient use only" WASTE: F/P - Black; E - Municipal Trash Bin Stable for 28 days at room temperature. Expires in days from Date Glucagon 1 mg, Route: No Longer IM, Drug form: Active 2016 [facility] PDR/INJ, PRN, Dosing Weight 132, kg, PRN Blood Glucose Results, Start date: 06/09/16 9:35:00 CDT, Duration: 30 day, Stop date: 07/09/16 9:34:00 CDT Dextrose 50% 12.5 gm, 25 No Longer Syringe mL, Route: Active 2016 [facility] IVP, Drug Form: INJ, Dosing Weight 132, kg, PRN, PRN Blood Glucose Results, Start date: 06/09/16 9:35:00 CDT, Duration: 30 day, Stop date: 07/09/16 9:34:00 CDT Streptococcus 0.5 mL, Route: Inactive pneumoniae IM, Drug Form: 2016 [facility] serotype 1 INJ, Daily, capsular antigen Start date: diphtheria [id number] 06/09/16 protein conjugate 9:00:00 CDT, vaccine / Stop date: Streptococcus 06/09/16 pneumoniae 11:00:00 serotype 14 CDTNotes: capsular antigen Lightly roll diphtheria [id number] vial (DO NOT protein conjugate SHAKE) before vaccine / administration Streptococcus . (Same as: pneumoniae Prevnar 13) serotype 18C capsular antigen d Vancomycin 1,000 mg, Inactive Route: IVPB, 2016 [facility] [id number], Dosing Weight 132, kg, Start date: 06/09/16 9:00:00 CDT, Duration: 30 day, Stop date: 07/08/16 21:00:00 CDTNotes: TIME CRITICAL MEDICATION (Same As: Vancocin) Infusion rate 2001 mg: infuse over 2.5 hours MEDICATION WASTE Product Size: 1000 mg Product Wasted: ___ mg Zosyn 3.375 gm, No Longer Route: IVPB, Active 2016 [facility] [id number], Dosing Weight 132, kg, CrCl >=20 ml/min infuse over 4 hours, Start date: 06/09/16 8:00:00 CDT, Duration: 30 day, Stop date: 07/09/16 2:30:00 CDTNotes: (Same as: Zosyn) Dosing based on Piperacillin component MEDICATION WASTE Product Size: 3375 mg Product Wasted: ___ mg Atropine 0.5 mg, 5 mL, No Longer Route: IV, Active 2016 [facility] Drug form: INJ, PRN, Dosing Weight 132, kg, PRN Bradycardia, Start date: 06/09/16 3:33:00 CDT, Duration: 30 day, Stop date: 07/09/16 3:32:00 CDT, symptomatic bradycardia HR Nitroglycerin 0.4 0.4 mg, 1 tab, No Longer MG Sublingual Route: SL, Active 2016 [facility] Tablet Drug form: [Nitrostat] TAB, Q5Min, Dosing Weight 132, kg, PRN Chest Pain, Start date: 06/09/16 3:33:00 CDT, Duration: 3 doses or times, Stop date: Limited # of timesNotes: (Same as:Nitroquick, Nitrostat) "Do Not Crush" Sublingual tablet Morphine 2 mg, 1 mL, Inactive Route: IVP, 2016 [facility] Drug form: INJ, Q4H, Dosing Weight 132, kg, PRN Pain Score 7-10, Start date: 06/09/16 3:30:00 CDT, Duration: 30 day, Stop date: 07/09/16 3:29:00 CDTNotes: (Same as:MORPhine Sulfate) Acetaminophen 325 2 tab, Route: Inactive MG / Hydrocodone PO, Drug Form: 2016 [facility] Bitartrate 5 MG TAB, Dosing Oral Tablet Weight 132, kg, Q4H, PRN Pain Score 7-10, Start date: 06/09/16 3:30:00 CDT, Duration: 30 day, Stop date: 07/09/16 3:29:00 CDTNotes: (Same as: [place] 325/5) Do not exceed 4gm/day of acetaminophen. Sodium Chloride 1,000 mL, No Longer 0.154 MEQ/ML Rate: 60 Active 2016 [facility] Injectable ml/hr, Infuse Solution over: 16.7 hr, Route: IV, Dosing Weight 132 kg, Total Volume: 1,000, Start date: 06/09/16 3:30:00 CDT, Duration: 30 day, Stop date: 07/09/16 3:29:00 CDT Saline Flush 0.9% 10 ml, Route: No Longer IVP, Drug Active 2016 [facility] Form: INJ, Dosing Weight 132, kg, PRN, PRN Line Flush, Start date: 06/09/16 3:30:00 CDT, Duration: 30 day, Stop date: 07/09/16 3:29:00 CDTNotes: (Same as: BD Posiflush) Ondansetron 4 mg, 2 mL, No Longer Route: IVP, Active 2016 [facility] Drug form: INJ, Q6H, Dosing Weight 132, kg, PRN Nausea & Vomiting, Start date: 06/09/16 3:30:00 CDT, Duration: 30 day, Stop date: 07/09/16 3:29:00 CDTNotes: (Same as: Zofran) MEDICATION WASTE Product Size: 4 mg Product Wasted: ___ mg Docusate 100 mg, 1 cap, No Longer Route: PO, Active 2016 [facility] Drug form: CAP, BID, Dosing Weight 132, kg, PRN Constipation, Start date: 06/09/16 3:30:00 CDT, Duration: 30 day, Stop date: 07/09/16 3:29:00 CDTNotes: (Same as: Colace) (Do Not Crush) multivitamin See Active Instructions, 2016 Daily, 0 Refill(s) Fenofibrate 145 145 mg=1 tab, Active MG Oral Tablet PO, Daily, # 2016 [facility] 30 tab, 0 Refill(s) Zofran 4 mg, Route: Inactive IVP, Drug 2016 [facility] form: INJ, ONCE, Dosing Weight 131.818, kg, Priority: STAT, Start date: 06/09/16 0:47:00 CDT, Stop date: 06/09/16 0:47:00 CDT Morphine 4 mg, Route: Inactive IVP, ONCE, 2016 Dosing Weight 131.818, kg, Priority: STAT, Start date: 06/09/16 0:47:00 CDT, Stop date: 06/09/16 0:47:00 CDT Zosyn 3.375 gm, No Longer Route: IVPB, Active 2016 [facility] ONCE, Dosing Weight 131.818, kg, Priority: STAT, Start date: 06/08/16 23:20:00 CDT, Stop date: 06/08/16 23:20:00 CDTNotes: (Same as: Zosyn) Dosing based on Piperacillin component MEDICATION WASTE Product Size: 3375 mg Product Wasted: ___ mg Vancomycin 1,000 mg, No Longer Route: IVPB, Active 2016 [facility] ONCE, Dosing Weight 131.818, kg, Priority: STAT, Start date: 06/08/16 23:19:00 CDT, Stop date: 06/08/16 23:19:00 CDTNotes: TIME CRITICAL MEDICATION (Same As: Vancocin) Infusion rate 2001 mg: infuse over 2.5 hours MEDICATION WASTE Product Size: 1000 mg Product Wasted: ___ mg Clindamycin 600 mg, Route: Inactive IVPB, ONCE, 2016 [facility] Dosing Weight 131.818, kg, Priority: STAT, Start date: 06/08/16 23:17:00 CDT, Stop date: 06/08/16 23:17:00 CDT Saline Flush 0.9% 10 mL, Route: No Longer IVP, Drug Active 2016 [facility] Form: INJ, Dosing Weight 131.818, kg, PRN, PRN Line Flush, Start date: 06/08/16 21:49:00 CDT, Duration: 30 day, Stop date: 07/08/16 21:48:00 CDTNotes: (Same as: BD Posiflush) lidocaine (ANES) Route: IV, Inactive Drug form: 2016 [facility] INJ, ONCE, Stop date: 05/16/16 10:35:00 CDT ceFAZolin (ANES) Route: IV, Inactive Drug form: 2016 [facility] INJ, ONCE, Stop date: 05/16/16 10:35:00 CDT midazolam (ANES) Route: IV, Inactive Drug form: 2016 [facility] SOLN, ONCE, Stop date: 05/16/16 10:35:00 CDT ondansetron Route: IV, Inactive (ANES) Drug form: 2016 [facility] INJ, ONCE, Stop date: 05/16/16 10:35:00 CDT dexamethasone Route: IV, Inactive (ANES) Drug form: 2016 [facility] INJ, ONCE, Stop date: 05/16/16 10:35:00 CDT fentaNYL (ANES) Route: IV, Inactive Drug form: 2016 [facility] INJ, ONCE, Stop date: 05/16/16 10:35:00 CDT propofol (ANES) Route: IV, Inactive (ANES) Drug form: 2016 [facility] INJ, Start date: 05/16/16 9:56:00 CDT, Stop date: 05/16/16 10:56:00 CDT LR 1000 mL INJ Route: IV, Inactive (ANES) Total Volume: 2016 [facility] 1,000, Start date: 05/16/16 9:50:00 CDT, Stop date: 05/16/16 10:50:00 CDT Albuterol 0.833 3 mL, Route: Inactive MG/ML / NEB, Dosing 2016 [facility] Ipratropium Weight [place] 0.167 131.932, kg, MG/ML Inhalant ONCE, STAT, Solution Start date: 05/16/16 8:58:00 CDT, Stop date: 05/16/16 8:58:00 CDT Calcium Chloride 1,000 mL, Inactive 0.0014 MEQ/ML / Rate: 25 2016 [facility] Potassium ml/hr, Infuse Chloride 0.004 over: 40 hr, MEQ/ML / Sodium Route: IV, Chloride 0.103 Dosing Weight MEQ/ML / Sodium 131.932 kg, Lactate 0.028 Total Volume: MEQ/ML Injectable 1,000, Start Solution date: 05/16/16 8:58:00 CDT, Duration: 30 day, Stop date: 06/15/16 8:57:00 CDT Acetaminophen 325 1 tab, PO, Active MG / Hydrocodone Q4H, PRN Pain 2014 [facility] Bitartrate 5 MG Score 1-5, 0 Oral Tablet Refill(s) [[place] 5/325] hydrocortisone 1 appl, Route: No Longer topical 1% cream TOP, PRN, Drug Active 2014 [facility] form: CRM, PRN Itching, Start date: 01/23/15 16:33:00, Duration: 30 day, Stop date: 02/22/15 16:32:00 Hydrocortisone 10 mg, Route: Inactive TOP, PRN, 2014 [facility] Dosing Weight 82.528, kg, PRN Itching, Start date: 01/23/15 16:28:00, Duration: 30 day, Stop date: 02/22/15 16:27:00 lactobacillus 1 cap, Route: No Longer rhamnosus GG PO, Drug Form: Active 2014 [facility] CAP, Daily, Start date: 01/21/15 12:00:00, Duration: 30 day, Stop date: 02/20/15 9:00:00Notes: Same as Culturelle lactobacillus 1 cap, Route: Inactive acidophilus PO, Drug Form: 2014 [facility] CAP, Dosing Weight 131.818, kg, Daily, Start date: 01/21/15 9:00:00, Duration: 30 day, Stop date: 02/19/15 9:00:00 Cefoxitin 2 gm, Route: Inactive IVPB, ONCE, 2014 [facility] Dosing Weight 131.818, kg, Start date: 01/19/15 17:42:00, Stop date: 01/19/15 17:42:00 Lactated Ringers 1,000 mL, No Longer IV 1,000 mL Rate: 40 Active 2014 [facility] ml/hr, Infuse over: 25 hr, Route: IV, Dosing Weight 131.818 kg, Total Volume: 1,000, Start date: 01/19/15 16:45:00, Duration: 30 day, Stop date: 02/18/15 16:44:00 Protonix 40 mg, 1 tab, No Longer Route: PO, Active 2014 [facility] Drug form: ECTAB, Before Dinner, Start date: 01/19/15 16:30:00, Duration: 30 day, Stop date: 02/17/15 16:30:00Notes: Tablet should not be chewed or crushed. (Same as: Protonix) Vancomycin 2 gm, 500 mL, No Longer Route: IVPB, Active 2014 [facility] Drug form: SOLN, Q12H, Dosing Weight 131.818, kg, Start date: 01/19/15 10:00:00, Duration: 30 day, Stop date: 02/18/15 0:00:00Notes: TIME CRITICAL MEDICATION Same as: Vancocin Infusion rate 2001 mg: infuse over 2.5 hours Prevacid 30 mg, 1 tab, Inactive Route: PO, 2014 [facility] Drug form: TABDIS, Daily, Dosing Weight 131.818, kg, before breakfast, Start date: 01/19/15 9:00:00, Duration: 30 day, Stop date: 02/17/15 9:00:00Notes: Same as Prevacid Take 1 hour before or 2 hours after meal; "Do Not Crush" Lovenox 40 mg, 0.4 mL, No Longer Route: SUB-Q, Active 2014 [facility] Drug form: INJ, [id number], Dosing Weight 131.818, kg, Start date: 01/19/15 8:00:00, Duration: 30 day, Stop date: 02/17/15 8:00:00Notes: (Same as: Lovenox) Acetaminophen 325 1 tab, Route: No Longer MG / Hydrocodone PO, Drug Form: Active 2014 [facility] Bitartrate 5 MG TAB, Dosing Oral Tablet Weight [[place] 5/325] 131.818, kg, Q4H, PRN Pain Score 1-5, prn pain, Start date: 01/18/15 16:23:00, Duration: 30 day, Stop date: 02/17/15 16:22:00Notes: (Same as: [place] 325/5) Do not exceed 4gm/day of acetaminophen. Vancomycin 2 gm, 500 mL, No Longer Route: IVPB, Active 2014 [facility] Drug form: SOLN, [id number], Dosing Weight 131.818, kg, TIME CRITICAL MEDICATION, Start date: 01/18/15 12:00:00, Duration: 30 day, Stop date: 02/16/15 12:00:00Notes: TIME CRITICAL MEDICATION Same as: Vancocin Infusion rate 2001 mg: infuse over 2.5 hours Benicar 40 mg, 2 tab, No Longer Route: PO, Active 2014 [facility] Drug form: TAB, Daily, Start date: 01/18/15 9:00:00, Duration: 30 day, Stop date: 02/16/15 9:00:00 hydrochlorothiazi 25 mg, 1 tab, No Longer de 25 mg oral Route: PO, Active 2014 [facility] tablet Drug form: TAB, Daily, Start date: 01/18/15 9:00:00, Duration: 30 day, Stop date: 02/16/15 9:00:00Notes: (Same as: Hydrodiuril) With food. Norvasc 10 mg, 2 tab, No Longer Route: PO, Active 2014 [facility] Drug form: TAB, Daily, Start date: 01/18/15 9:00:00, Duration: 30 day, Stop date: 02/16/15 9:00:00Notes: (Same as: Norvasc) Plavix 75 mg, 1 tab, No Longer Route: PO, Active 2014 [facility] Drug form: TAB, Daily, Dosing Weight 131.818, kg, Start date: 01/18/15 9:00:00, Duration: 30 day, Stop date: 02/16/15 9:00:00Notes: (Same As: Plavix) Lipitor 20 mg, 2 tab, No Longer Route: PO, Active 2014 [facility] Drug form: TAB, Daily, Dosing Weight 131.818, kg, Start date: 01/18/15 9:00:00, Duration: 30 day, Stop date: 02/16/15 9:00:00Notes: (Same As: Lipitor) Amlodipine 10 MG 1 tab, Route: No Longer / PO, Dosing Active 2014 [facility] Hydrochlorothiazi Weight de 25 MG / 131.818, kg, Olmesartan Daily, Start medoxomil 40 MG date: 01/18/15 Oral Tablet 9:00:00, [Tribenzor Duration: 30 ] day, Stop date: 02/16/15 9:00:00 gabapentin 300 MG 300 mg, 1 cap, No Longer Oral Capsule Route: PO, Active 2014 [facility] Drug form: CAP, BID, Dosing Weight 131.818, kg, Start date: 01/17/15 21:00:00, Duration: 30 day, Stop date: 02/16/15 9:00:00Notes: (Same as: Neurontin) calcium carbonate 1,250 mg, 2.5 No Longer tab, Route: Active 2014 [facility] CHEW, Drug Form: CHEWTAB, Dosing Weight 131.818, kg, TID, PRN as needed for indigestion, Start date: 01/17/15 18:18:00, Duration: 30 day, Stop date: 02/16/15 18:17:00Notes: (Same As: [place]) Calcium Carbonate 500 sq=628 mg elemental calcium Dose= mg calcium carbonate ( mg elemental calcium) Docusate Sodium 100 mg, 1 cap, No Longer 100 MG Oral Route: PO, Active 2014 Capsule [Colace] Drug form: CAP, Daily, Dosing Weight 131.818, kg, PRN Constipation, Start date: 01/17/15 18:18:00, Duration: 30 day, Stop date: 02/16/15 18:17:00Notes: (Same as: Colace) (Do Not Crush) Trazodone 50 mg, 1 tab, No Longer Hydrochloride 50 Route: PO, Active 2014 [facility] Oral Tablet Drug form: TAB, Bedtime, Dosing Weight 131.818, kg, PRN Insomnia, Start date: 01/17/15 18:17:00, Duration: 30 day, Stop date: 02/16/15 18:16:00Notes: (Same As: Billyyrel) Piperacillin / 3.375 gm, No Longer tazobactam Route: IVPB, Active 2014 Q8H, Dosing Weight 131.818, kg, Start date: 01/17/15 18:00:00, Stop date: 02/16/15 5:00:00Notes: (Same as: Zosyn) Dosing based on Piperacillin component MEDICATION WASTE Product Size: 3375 mg Product Wasted: ___ mg Aspirin 81 MG 81 mg, 1 tab, No Longer Enteric Coated Route: PO, Active 2014 Tablet Drug form: ECTAB, Daily, Dosing Weight 131.818, kg, Start date: 01/17/15 17:30:00, Duration: 30 day, Stop date: 02/16/15 9:00:00Notes: Do not crush or chew. (Same As: Ecotrin) Metformin 500 mg, 1 tab, No Longer hydrochloride 500 Route: PO, Active 2014 [facility] Oral Tablet Drug form: TAB, BID-Meals, Dosing Weight 131.818, kg, Start date: 01/17/15 17:00:00, Duration: 30 day, Stop date: 02/16/15 8:00:00Notes: (Same as: Glucophage) Take with meal tramadol 50 mg, 1 tab, No Longer hydrochloride 50 Route: PO, Active 2014 [facility] Oral Tablet Drug form: TAB, Q4H, Dosing Weight 131.818, kg, PRN Pain Score 1-5, Start date: 01/17/15 16:43:00, Duration: 30 day, Stop date: 02/16/15 16:42:00Notes: Not to exceed 400mg/day. (Same As: Ultram) Vancomycin 2 gm, 500 mL, Inactive Route: IVPB, 2014 [facility] Drug form: SOLN, ABXQ8H, Dosing Weight 131.818, kg, TIME CRITICAL MEDICATION, Start date: 01/17/15 16:00:00, Duration: 30 day, Stop date: 02/16/15 8:00:00Notes: TIME CRITICAL MEDICATION Same as: Vancocin Infusion rate 2001 mg: infuse over 2.5 hours Clindamycin 600 mg, 50 mL, No Longer Route: IVPB, Active 2014 [facility] Drug form: INJ, ABXQ8H, Dosing Weight 131.818, kg, Start date: 01/17/15 16:00:00, Duration: 30 day, Stop date: 02/16/15 8:00:00 Insulin, Aspart, 4 unit, 0.04 No Longer Human mL, Route: Active 2014 [facility] SUB-Q, Drug form: SOLN, TID-Before Meals, Dosing Weight 131.818, kg, PRN Blood Glucose Results, Start date: 01/17/15 14:31:00, Duration: 30 day, Stop date: 02/16/15 14:30:00Notes: Roll in palms of hands gently; Do not shake vigorously. (Same as: NovoLOG) "single patient use only" Stable for 28 days at room temperature. Expires in days from Date Dextrose 50% 25 gm, 50 mL, No Longer Syringe Route: IVP, Active 2014 [facility] Drug Form: INJ, Dosing Weight 131.818, kg, PRN, PRN Blood Glucose Results, Start date: 01/17/15 14:31:00, Duration: 30 day, Stop date: 02/16/15 14:30:00 Glucagon 1 mg, Route: No Longer IM, Drug form: Active 2014 [facility] PDR/INJ, PRN, Dosing Weight 131.818, kg, PRN Blood Glucose Results, Start date: 01/17/15 14:31:00, Duration: 30 day, Stop date: 02/16/15 14:30:00 Zofran 4 mg, 1 tab, No Longer Route: PO, Active 2014 [facility] Drug form: TAB, Q8H, Dosing Weight 131.818, kg, PRN Nausea, Start date: 01/17/15 14:15:00, Duration: 30 day, Stop date: 02/16/15 14:14:00Notes: (Same as: Zofran) Tylenol 325 mg, 1 tab, No Longer Route: PO, Active 2014 [facility] Drug form: TAB, Q6H, Dosing Weight 131.818, kg, PRN Pain Score 1-3, Start date: 01/17/15 14:14:00, Duration: 30 day, Stop date: 02/16/15 14:13:00Notes: Do not exceed 4 gm/day. (Same as: Tylenol) Morphine 4 mg, Route: Inactive IVP, Drug 2014 [facility] form: INJ, ONCE, Dosing Weight 131.818, kg, Priority: STAT, Start date: 01/17/15 12:46:00, Stop date: 01/17/15 12:46:00 Piperacillin / 3.375 gm, Inactive tazobactam Route: IVPB, 2014 ONCE, Dosing Weight 131.818, kg, Priority: STAT, Start date: 01/17/15 10:46:00, Stop date: 01/17/15 10:46:00Notes: (Same as: Zosyn) Dosing based on Piperacillin component MEDICATION WASTE Product Size: 3375 mg Product Wasted: ___ mg Vancomycin 2,000 mg, 500 Inactive mL, Route: 2014 [facility] IVPB, Drug form: SOLN, ONCE, Dosing Weight 131.818, kg, TIME CRITICAL MEDICATION, Priority: STAT, Start date: 01/17/15 10:46:00, Stop date: 01/17/15 10:46:00Notes: TIME CRITICAL MEDICATION Same as: Vancocin Infusion rate 2001 mg: infuse over 2.5 hours Saline Flush 0.9% 10 mL, Route: Inactive IVP, Drug 2014 [facility] Form: INJ, Dosing Weight 131.818, kg, PRN, PRN Line Flush, Start date: 01/17/15 10:46:00, Duration: 30 day, Stop date: 02/16/15 10:45:00Notes: (Same as: BD Posiflush) Sodium Chloride 1,000 mL, Inactive 0.154 MEQ/ML Infuse Over: 1 2014 [facility] Injectable hr, Route: IV, Solution ONCE, Priority: STAT, Dosing Weight 131.818 kg, Start date: 01/17/15 10:24:00, Duration: 1 doses or times, Stop date: 01/17/15 10:24:00 Saline Flush 0.9% 10 mL, Route: Inactive IVP, Drug 2014 [facility] Form: INJ, Dosing Weight 131.818, kg, PRN, PRN Line Flush, Start date: 01/17/15 10:24:00, Duration: 30 day, Stop date: 02/16/15 10:23:00Notes: (Same as: BD Posiflush) levofloxacin 500 500 mg=1 tab, Active mg oral tablet PO, Daily, X 2014 10 day, # 10 tab, 0 Refill(s) Clotrimazole 10 1 appl, TOP, Active [facility] MG/ML Topical BID, X 7 day, 2014 Cream # 45 gm, 0 Refill(s) Minocycline 100 100 mg=1 cap, Active [facility] MG Oral Capsule PO, Q12H, X 10 2014 [Minocin] day, # 20 cap, 0 Refill(s) Bacitracin 1 appl, Route: Inactive TOP, Daily, 2014 Drug form: OINT, Start date: 10/25/14 9:00:00, Duration: 30 day, Stop date: 11/23/14 9:00:00 Vancomycin 1.5 gm, 250 Inactive mL, Route: IV, 2014 [facility] Drug form: INJ, ONCE, Dosing Weight 131.818, kg, Start date: 10/22/14 8:41:00, Stop date: 10/22/14 8:41:00Notes: TIME CRITICAL MEDICATION Same as: Vancocin-NS (premixed) Infusion rate 2001 mg: infuse over 2.5 hours Prochlorperazine 5 mg, 1 tab, No Longer Route: PO, Active 2014 [facility] Drug form: TAB, Q6H, Dosing Weight 131.818, kg, PRN Nausea & Vomiting, Start date: 10/22/14 8:17:00, Duration: 30 day, Stop date: 11/21/14 8:16:00, ..Special Instructions: ..Notes: (Same as: Compazine) Trazodone 50 mg, 1 tab, No Longer Route: PO, Active 2014 [facility] Drug form: TAB, Bedtime, Dosing Weight 131.818, kg, PRN Sleep, Start date: 10/22/14 8:17:00, Duration: 30 day, Stop date: 11/21/14 8:16:00, ..Special Instructions: ..Notes: (Same As: Desyrel) Docusate Sodium 100 mg, 1 cap, No Longer 100 MG Oral Route: PO, Active 2014 [facility] Capsule [Colace] Drug form: CAP, Daily, Dosing Weight 131.818, kg, PRN Constipation, Start date: 10/22/14 8:16:00, Duration: 30 day, Stop date: 11/21/14 8:15:00Notes: (Same as: Colace) (Do Not Crush) Lipitor 40 mg, 1 tab, No Longer Route: PO, Active 2014 [facility] Drug form: TAB, Bedtime, Dosing Weight 131.818, kg, Start date: 10/21/14 21:00:00, Duration: 30 day, Stop date: 11/19/14 21:00:00Notes: (Same as: Lipitor) Zosyn + Sodium 4.5 gm, Route: No Longer Chloride 0.9% IV IVPB, ABXQ8H, Active 2014 [facility] 100 mL Start date: 10/21/14 16:00:00, Stop date: 11/20/14 8:00:00Notes: (Same as: Zosyn) Dosing based on Piperacillin component MEDICATION WASTE Product Size: 4500 mg Product Wasted: ___ mg Zosyn 4.5 gm, Route: Inactive IV, Q8H, 2014 Dosing Weight 131.818, kg, Start date: 10/21/14 16:00:00, Duration: 30 day, Stop date: 11/20/14 8:00:00 Benicar 40 mg, 2 tab, No Longer Route: PO, Active 2014 [facility] Drug form: TAB, Daily, Start date: 10/21/14 12:00:00, Duration: 30 day, Stop date: 11/20/14 9:00:00 hydrochlorothiazi 25 mg, 1 tab, No Longer de 25 mg oral Route: PO, 2014 [facility] tablet Drug form: TAB, Daily, Start date: 10/21/14 12:00:00, Duration: 30 day, Stop date: 11/20/14 9:00:00Notes: (Same as: Hydrodiuril) With food. Norvasc 10 mg, 2 tab, No Longer Route: PO, Active 2014 [facility] Drug form: TAB, Daily, Start date: 10/21/14 12:00:00, Duration: 30 day, Stop date: 11/20/14 9:00:00Notes: (Same as: Norvasc) Protonix 40 mg, 1 pkt, No Longer Route: PO, Active 2014 [facility] Drug form: GRAN/REC, Before Breakfast, Start date: 10/21/14 10:00:00, Duration: 30 day, Stop date: 11/20/14 7:30:00Notes: Same as: Protonix Mix in 5 mL apple juice or applesauce for oral & 10mL apple juice for NG tube gabapentin 300 MG 300 mg, 1 cap, No Longer Oral Capsule Route: PO, Active 2014 [facility] [Neurontin] Drug form: CAP, TID, Dosing Weight 131.818, kg, Start date: 10/21/14 9:00:00, Duration: 30 day, Stop date: 11/19/14 17:00:00Notes: (Same as: Neurontin) Plavix 75 mg, 1 tab, No Longer Route: PO, Active 2014 [facility] Drug form: TAB, Daily, Dosing Weight 131.818, kg, Start date: 10/21/14 9:00:00, Duration: 30 day, Stop date: 11/19/14 9:00:00Notes: (Same As: Plavix) Amlodipine 10 MG 1 tab, Route: Inactive / PO, Dosing 2014 Hydrochlorothiazi Weight de 25 MG / 131.818, kg, Olmesartan Daily, Start medoxomil 40 MG date: 10/21/14 Oral Tablet 9:00:00, [Tribenzor Duration: 30 ] day, Stop date: 11/19/14 9:00:00 Enoxaparin 40 mg, 0.4 mL, No Longer Route: SUB-Q, Active 2014 [facility] Drug form: INJ, [id number], Dosing Weight 131.818, kg, Start date: 10/21/14 8:00:00, Duration: 30 day, Stop date: 11/19/14 8:00:00Notes: (Same as: Lovenox) Metformin 500 mg, 1 tab, No Longer hydrochloride 500 Route: PO, Active 2014 [facility] Oral Tablet Drug form: TAB, BID-Meals, Dosing Weight 131.818, kg, Start date: 10/21/14 8:00:00, Duration: 30 day, Stop date: 11/19/14 17:00:00Notes: (Same as: Glucophage) Take with meal Prevacid 30 mg, 10 mL, Inactive Route: NG, 2014 Drug form: SUSP, Before Breakfast, Dosing Weight 131.818, kg, Start date: 10/21/14 7:30:00, Duration: 30 day, Stop date: 11/19/14 7:30:00Notes: Take 1 hour before or 2 hours after meal ; Stable for 30 days Refrigerated. Shake Well!! (Same as:Prevacid) For oral use only. tramadol 50 mg, 1 tab, No Longer hydrochloride 50 Route: PO, Active 2014 [facility] Oral Tablet Drug form: TAB, Q4H, Dosing Weight 131.818, kg, PRN Pain Score 6-10, Start date: 10/21/14 7:24:00, Duration: 30 day, Stop date: 11/20/14 7:23:00Notes: Not to exceed 400mg/day. (Same As: Ultram) Zosyn 4.5 gm, Route: Inactive IVPB, Drug 2014 [facility] form: PDR/INJ, [id number], Dosing Weight 131.818, kg, Priority: Routine, Start date: 10/21/14 4:00:00, Duration: 30 day, Stop date: 11/19/14 20:00:00Notes: (Same as: Zosyn) Infuse over 4 hours. Activate and reconstitute before use. Dosing based on Piperacillin component tramadol 50 mg=1 tab, Active hydrochloride 50 PO, Q4H, PRN 2014 [facility] Oral Tablet Pain, # 60 tab, 0 Refill(s) Amlodipine 10 MG 1 tab, PO, No Longer / Daily, # 30 Active 2014 [facility] Hydrochlorothiazi tab, 0 de 25 MG / Refill(s) valsartan 320 MG Oral Tablet [Exforge HCT 10/320/25] gabapentin 300 MG 300 mg=1 cap, No Longer Oral Capsule PO, TID, # 90 Active 2014 [facility] [Neurontin] cap, 0 Refill(s) Metformin 500 mg=1 tab, Active hydrochloride 500 PO, BID-Meals, 2014 MG Oral Tablet # 30 tab, 0 Refill(s) Metformin PO, 0 No Longer Refill(s) Active 2014 [facility] atorvastatin 40 40 mg=1 tab, No Longer MG Oral Tablet PO, Bedtime, # Active 2014 [facility] [Lipitor] 30 tab, 0 Refill(s) Aspirin 81 MG 81 mg=1 tab, Active Enteric Coated PO, Daily, # 2014 [facility] Tablet 90 tab, 3 Refill(s) Aspirin 0 Refill(s) No Longer Active 2014 [facility] clopidogrel 75 MG 75 mg=1 tab, No Longer Oral Tablet PO, Daily, # Active 2014 [facility] [Plavix] 30 tab, 0 Refill(s) Insulin, Aspart, 10 unit, 0.1 No Longer Human mL, Route: 2014 [facility] SUB-Q, Drug form: SOLN, TID-Before Meals, Dosing Weight 131.818, kg, PRN Blood Glucose Results, Start date: 10/21/14 3:09:00, Duration: 30 day, Stop date: 11/20/14 3:08:00Notes: Roll in palms of hands gently; Do not shake vigorously. (Same as: NovoLOG) "single patient use only" Stable for 28 days at room temperature. Expires in days from Date Dextrose 50% 12.5 gm, 25 No Longer Syringe mL, Route: 2014 [facility] IVP, Drug Form: INJ, Dosing Weight 131.818, kg, PRN, PRN Blood Glucose Results, Start date: 10/21/14 3:09:00, Duration: 30 day, Stop date: 11/20/14 3:08:00 Glucagon 1 mg, Route: No Longer IM, Drug form: [facility] 2014 [facility] PDR/INJ, PRN, Dosing Weight 131.818, kg, PRN Blood Glucose Results, Start date: 10/21/14 3:09:00, Duration: 30 day, Stop date: 11/20/14 3:08:00 Ondansetron 4 mg, 2 mL, No Longer Route: IVP, [facility] 2014 [facility] Drug form: INJ, Q6H, Dosing Weight 131.818, kg, PRN Nausea & Vomiting, Start date: 10/21/14 3:06:00, Duration: 30 day, Stop date: 11/20/14 3:05:00Notes: (Same as: Keon) MEDICATION WASTE Product Size: 4 mg Product Wasted: ___ mg Morphine 2 mg, 1 mL, No Longer Route: IVP, Active 2014 [facility] Drug form: INJ, Q4H, Dosing Weight 131.818, kg, PRN Pain Score 7-10, Start date: 10/21/14 3:06:00, Duration: 30 day, Stop date: 11/20/14 3:05:00Notes: (Same as:MORPhine Sulfate) Acetaminophen 650 mg, 2 tab, No Longer Route: PO, 2014 [facility] Drug form: TAB, Q4H, Dosing Weight 131.818, kg, PRN Pain 1-3/Temp > 100.4 F, Start date: 10/21/14 3:06:00, Duration: 30 day, Stop date: 11/20/14 3:05:00Notes: Do not exceed 4 gm/day. (Same as: Tylenol) NS 1,000 mL 1,000 mL, No Longer Rate: 40 Active 2014 [facility] ml/hr, Infuse over: 25 hr, Route: IV, Dosing Weight 131.818 kg, Total Volume: 1,000, Start date: 10/21/14 3:06:00, Duration: 30 day, Stop date: 11/20/14 3:05:00 Acetaminophen 1,000 mg, Inactive Route: PO, 2014 [facility] Drug form: TAB, ONCE, Dosing Weight 131.818, kg, Priority: STAT, Start date: 10/21/14 0:26:00, Stop date: 10/21/14 0:26:00 NS 1,000 mL 1,000 mL, No Longer Rate: 75 Active 2014 [facility] ml/hr, Infuse over: 13.3 hr, Route: IV, Dosing Weight 131.818 kg, Total Volume: 1,000, Start date: 10/20/14 23:01:00, Duration: 30 day, Stop date: 11/19/14 23:00:00 Zosyn 4.5 gm, Route: No Longer IVPB, ONCE, 2014 [facility] Dosing Weight 131.818, kg, Priority: STAT, Start date: 10/20/14 23:00:00, Stop date: 10/20/14 23:00:00Notes: (Same as: Zosyn) Dosing based on Piperacillin component MEDICATION WASTE Product Size: 4500 mg Product Wasted: ___ mg Vancomycin 1 gm, 200 mL, No Longer Route: IVPB, Active 2014 [facility] Drug form: INJ, ONCE, Dosing Weight 131.818, kg, Priority: STAT, Start date: 10/20/14 23:00:00, Stop date: 10/20/14 23:00:00Notes: TIME CRITICAL MEDICATION [place] 5/325 oral 1 tab, PO, PO Active Humberto tablet Q4-6H, PRN, 20 2012 [facility] tab, as needed for pain, Substitution Allowed, Maintenance Norvasc 10 mg, 2 tab, PO No Longer Humberto Route: PO, Active 2012 [facility] Drug form: TAB, Daily, Start date: 07/12/12 9:00:00, Duration: 30 day, Stop date: 08/10/12 9:00:00 Antara 130mg po Antara 130mg PO No Longer Humberto daily*Pts own po daily*Pts Active 2012 [facility] med* own med*, 130 mg, Drug form: MISC, Route: PO, Daily, 07/12/12 9:00:00, Duration: 30 day, Stop date: 08/10/12 9:00:00 hydrochlorothiazi 25 mg, 1 tab, PO No Longer Humberto de 25 mg oral Route: PO, Active 2012 [facility] tablet Drug form: TAB, Daily, Start date: 07/12/12 9:00:00, Duration: 30 day, Stop date: 08/10/12 9:00:00 Diovan 320 mg, 2 tab, PO No Longer Humberto Route: PO, Active 2012 [facility] Drug form: TAB, Daily, Start date: 07/12/12 9:00:00, Duration: 30 day, Stop date: 08/10/12 9:00:00 Exforge HCT 10 1 tab, PO, PO Active mg-320 mg-25 mg Daily, 30 tab, 2012 oral tablet Substitution Allowed, Maintenance, TAB Saline Flush 0.9% 5 ml, Route: IVP No Longer Root IVP, Drug Active 2012 [facility] Form: INJ, Dosing Weight 131, kg, Q12H, Start date: 07/10/12 21:00:00, Duration: 30 day, Stop date: 08/09/12 9:00:00 morphine Sulfate 1 mg, 0.5 mL, IV No Longer Humberto Route: IV, [facility] 2012 [facility] Drug form: INJ, Q4H, Dosing Weight 131, kg, PRN Pain Score 4-6, Start date: 07/10/12 20:10:00, Duration: 30 day, Stop date: 08/09/12 20:09:00, pain level > 3 morphine Sulfate 2 mg, 1 mL, IVP No Longer Humberto Route: IVP, [facility] 2012 [facility] Drug form: INJ, Q4H, Dosing Weight 131, kg, PRN Pain Score 6-10, Start date: 07/10/12 20:09:00, Stop date: 08/09/12 20:08:00, pain level >5 Saline Flush 0.9% 5 ml, Route: IVP No Longer Dk IVP, Drug [facility] 2012 [facility] Form: INJ, Dosing Weight 131, kg, PRN, PRN Line Flush, Start date: 07/10/12 13:16:00, Duration: 30 day, Stop date: 08/09/12 13:15:00 ondansetron 4 mg, Route: IVP No Longer Berenice IVP, ONCE, [facility] 2012 [facility] Dosing Weight 131, kg, PRN Nausea & Vomiting, Start date: 07/10/12 13:12:00 flumazenil 0.2 mg, 2 mL, IVP No Longer Keny Route: IVP, [facility] 2012 [facility] Drug form: INJ, PRN, Dosing Weight 131, kg, PRN Benzodiazepine Reversal, Initial dose, Start date: 07/10/12 13:12:00, Duration: 30 day, Stop date: 08/09/12 13:11:00 naloxone 0.04 mg, 0.1 IVP No Longer Keny mL, Route: [facility] 2012 [facility] IVP, Drug form: INJ, Q2MIN, Dosing Weight 131, kg, PRN Narcotic Reversal, Start date: 07/10/12 13:12:00, Duration: 8 doses or times, Stop date: Limited # of times fentanyl 25 microgram, IVP No Longer Berenice 0.5 mL, Route: Active 2012 [facility] IVP, Drug form: INJ, Q5Min, Dosing Weight 131, kg, PRN Pain Score 4-6, Start date: 07/10/12 13:12:00, Duration: 4 doses or times, Stop date: Limited # of times hydromorphone 0.5 mg, 0.5 IVP No Longer Keny mL, Route: Active 2012 [facility] IVP, Drug form: SOLN, Q5Min, Dosing Weight 131, kg, PRN Pain Score 4-6, Start date: 07/10/12 13:12:00, Duration: 5 doses or times, Stop date: Limited # of times acetaminophen-hyd 1 tab, Route: PO No Longer Bustillo rocodone 325 mg-5 PO, Drug Form: Active 2012 [facility] mg oral tablet TAB, Dosing Weight 131, kg, Q4H, PRN Pain Score 1-3, Start date: 07/10/12 13:12:00, Duration: 30 day, Stop date: 08/09/12 13:11:00 Lactated Ringers 1,000 mL, IV No Longer Bustillo Injection IV Rate: 50 Active 2012 [facility] 1,000 mL ml/hr, Infuse over: 20 hr, Route: IV, Dosing Weight 131 kg, Total Volume: 1,000, Start date: 07/10/12 13:12:00, Duration: 30 day, Stop date: 08/09/12 13:11:00 Lactated Ringers 1,000 mL, IV No Longer Berenice Injection IV Rate: 25 Active 2012 [facility] 1,000 mL ml/hr, Infuse over: 40 hr, Route: IV, Dosing Weight 131 kg, Total Volume: 1,000, Start date: 07/10/12 12:28:00, Duration: 30 day, Stop date: 08/09/12 12:27:00 Lipitor 20 mg, 2 tab, PO No Longer Humberto Route: PO, Active 2012 [facility] Drug form: TAB, QPM, Dosing Weight 131, kg, Start date: 07/09/12 17:00:00, Duration: 30 day, Stop date: 08/07/12 17:00:00 Glucophage 500 mg 500 mg, 1 tab, PO No Longer Humberto oral tablet Route: PO, 2012 [facility] Drug form: TAB, BID, Dosing Weight 131, kg, Start date: 07/09/12 9:00:00, Duration: 30 day, Stop date: 08/07/12 17:00:00 gabapentin 300 mg 300 mg, 1 cap, PO No Longer Humberto oral capsule Route: PO, 2012 [facility] Drug form: CAP, BID, Dosing Weight 131, kg, Start date: 07/09/12 9:00:00, Duration: 30 day, Stop date: 08/07/12 17:00:00 nitroglycerin 0.4 0.4 mg, 1 tab, SL No Longer Humberto mg sublingual Route: SL, 2012 [facility] tablet Drug form: TAB, Q5Min, PRN Chest Pain, Start date: 07/09/12 4:21:00, Duration: 30 day, Stop date: 08/08/12 4:20:00 atropine 0.5 mg, 5 mL, IVP No Longer Humberto Route: IVP, 2012 [facility] Drug form: INJ, PRN, PRN Bradycardia, Start date: 07/09/12 4:21:00, Duration: 30 day, Stop date: 08/08/12 4:20:00 Zosyn 3.375 gm, 100 IVPB No Longer Humberto mL, Route: 2012 [facility] IVPB, Drug form: PDR/INJ, [id number], Dosing Weight 131.818, kg, Priority: STAT, Start date: 07/09/12 4:12:00, Duration: 30 day, Stop date: 08/07/12 22:12:00 vancomycin 1 gm, 200 mL, IVPB No Longer Humberto Route: IVPB, 2012 [facility] Drug form: INJ, [id number], Dosing Weight 131.818, kg, Priority: STAT, Start date: 07/09/12 4:12:00, Stop date: 08/07/12 14:30:00 ondansetron 4 mg, 2 mL, IVP No Longer Humberto Route: IVP, 2012 [facility] Drug form: INJ, Q8H, Dosing Weight 131.818, kg, PRN Nausea & Vomiting, Start date: 07/09/12 4:12:00, Duration: 30 day, Stop date: 08/08/12 4:11:00 acetaminophen 650 mg, 20.3 PO No Longer Humberto mL, Route: PO, 2012 [facility] Drug form: LIQ, Q4H, Dosing Weight 131.818, kg, PRN Pain 1-3/Temp > 100.4 F, Start date: 07/09/12 4:12:00, Duration: 30 day, Stop date: 08/08/12 4:11:00 Zofran 4 mg, Route: IVP No Longer [facility] IVP, Drug Active 2012 [facility] form: INJ, ONCE, Dosing Weight 131.818, kg, Priority: STAT, Start date: 07/09/12 1:11:00, Stop date: 07/09/12 1:11:00 morphine Sulfate 4 mg, Route: IVP No Longer [facility] IVP, Drug [facility] 2012 [facility] form: INJ, ONCE, Dosing Weight 131.818, kg, Priority: STAT, Start date: 07/09/12 1:11:00, Stop date: 07/09/12 1:11:00 Saline Flush 0.9% 5 mL, Route: IVP No Longer [facility] IVP, Drug [facility] 2012 [facility] Form: INJ, Dosing Weight 131.818, kg, PRN, PRN Line Flush, Start date: 07/08/12 23:54:00, Duration: 30 day, Stop date: 08/07/12 23:53:00 Sodium Chloride 1,000 mL, IV No Longer [facility] 0.9% (Bolus) IV Rate: 1,000 2012 [facility] 1,000 mL ml/hr, Infuse over: 1 hr, Route: IV, kg, Total Volume: 1,000, Priority: STAT, Start date: 07/08/12 23:54:00, Duration: 1 doses or times, Stop date: 07/09/12 0:53:00 vancomycin 1,000 mg, 200 IVPB No Longer Carmen mL, Route: 2012 [facility] IVPB, Drug form: INJ, ONCE, Dosing Weight 131.818, kg, Priority: STAT, Start date: 07/08/12 23:54:00, Stop date: 07/08/12 23:54:00 piperacillin-tazo 4.5 gm, Route: IVPB No Longer Humberto bactam + Sodium IVPB, ONCE, Active 2012 [facility] 0.9% IV Dosing Weight 100 mL 131.818, kg, Priority: STAT, Start date: 07/08/12 23:54:00, Stop date: 07/08/12 23:54:00 vancomycin 1 g 1 gm, IV, IV Active Humberto intravenous Q12H, 20 doses 2012 injection or times, Substitution Allowed valsartan 160 mg 160 mg, 1 tab, PO Active Humberto oral tablet PO, Daily, 30 2012 tab, Substitution Allowed, TAB pantoprazole 40 40 mg, 1 tab, PO Active Humberto mg oral enteric PO, Before 2012 coated tablet Breakfast, 30 tab, Substitution Allowed, ECTAB lactobacillus 1 cap, PO, PO Active [facility] rhamnosus GG 80 Daily, 30 cap, 2012 mg oral capsule Substitution Allowed, Maintenance, CAP Insulin Aspart 5 unit, 0.05 SUB-Q Active Humberto 100 unit/ml - mL, SUB-Q, 2012 [facility] (High CD) TID-Before Meals, PRN, 30 mL, Blood Glucose Results, Substitution Allowed, SOLN Insulin Aspart 4 unit, 0.04 SUB-Q Active Humberto 100 unit/ml - mL, SUB-Q2012 [facility] (High CD) TID-Before Meals, PRN, 30 mL, Blood Glucose Results, Substitution Allowed, SOLN Insulin Aspart 3 unit, 0.03 SUB-Q Active Humberto 100 unit/ml - mL, SUB-Q2012 [facility] (High CD) TID-Before Meals, PRN, 30 mL, Blood Glucose Results, Substitution Allowed, SOLN Insulin Aspart 2 unit, 0.02 SUB-Q Active Humberto 100 unit/ml - mL, SUB-Q2012 [facility] (High CD) TID-Before Meals, PRN, 30 mL, Blood Glucose Results, Substitution Allowed, SOLN hydrochlorothiazi 25 mg, 1 tab, PO Active Humberto de 25 mg oral PO, Daily, 30 2013 [facility] tablet tab, Substitution Allowed, TAB Insulin Aspart 1 unit, 0.01 SUB-Q Active [facility] 100 unit/ml - mL, SUB-Q, 2012 [facility] (High CD) TID-Before Meals, PRN, 30 mL, Blood Glucose Results, Substitution Allowed, SOLN amLODipine 5 mg 10 mg, 2 tab, PO Active [facility] oral tablet PO, Daily, 2012 [facility] tab, Substitution Allowed, TAB metFORmin 850 mg 850 mg, 1 tab, PO No Longer Humberto oral tablet Route: PO, Active 2012 [facility] Drug form: TAB, BID-Meals, Dosing Weight 129.545, kg, Start date: 05/25/12 17:00:00, Duration: 30 day, Stop date: 06/24/12 8:00:00 lactobacillus 1 cap, Route: PO No Longer Humberto acidophilus PO, Drug Form: Active 2012 [facility] CAP, Dosing Weight 129.545, kg, Daily, Start date: 05/25/12 9:00:00, Duration: 30 day, Stop date: 06/23/12 9:00:00 cefepime + Sodium 1 gm, Route: IVPB No Longer Sarvat Chloride 0.9% IV IVPB, [id number], [facility] 2012 [facility] 100 mL Dosing Weight 129.545, kg, (CrCl 30 - 49 ml/min), Start date: 05/24/12 22:00:00, Duration: 30 day, Stop date: 06/23/12 10:00:00 Protonix 40 mg, 1 tab, PO No Longer Humberto Route: PO, Active 2012 [facility] Drug form: ECTAB, Before Breakfast, Dosing Weight 129.545, kg, Start date: 05/22/12 7:30:00, Duration: 30 day, Stop date: 06/20/12 7:30:00 valsartan 160 mg, Route: PO No Longer Bentley PO, Drug form: [facility] 2012 [facility] TAB, Daily, Dosing Weight 129.545, kg, Start date: 05/21/12 9:00:00, Duration: 30 day, Stop date: 06/19/12 9:00:00 hydrochlorothiazi 25 mg, 1 tab, PO No Longer Bentley MH de Route: PO, Active 2012 [facility] Drug form: TAB, Daily, Dosing Weight 129.545, kg, Start date: 05/21/12 9:00:00, Duration: 30 day, Stop date: 06/19/12 9:00:00 amLODipine 10 mg, Route: PO No Longer Bentley 05/21/ MH PO, Drug form: Active 2012 [facility] TAB, Daily, Dosing Weight 129.545, kg, Start date: 05/21/12 9:00:00, Duration: 30 day, Stop date: 06/19/12 9:00:00 lactobacillus 1 cap, Route: PO No Longer Humberto acidophilus PO, Drug Form: Active 2012 [facility] CAP, Dosing Weight 129.545, kg, Daily, Start date: 05/21/12 9:00:00, Duration: 30 day, Stop date: 06/19/12 9:00:00 lactobacillus 80 mg, 1 cap, PO No Longer Humberto rhamnosus GG Route: PO, Active 2012 [facility] Drug Form: CAP, Daily, Start date: 05/21/12 9:00:00, Duration: 30 day, Stop date: 06/19/12 9:00:00 Plavix 75 mg, 1 tab, PO No Longer Bentley Route: PO, Active 2012 [facility] Drug form: TAB, Daily, Dosing Weight 129.545, kg, Start date: 05/21/12 9:00:00, Duration: 30 day, Stop date: 06/19/12 9:00:00 hydrochlorothiazi Route: PO, PO No Longer [place] de-valsartan 12.5 Dosing Weight Active 2012 [facility] mg-80 mg oral 129.545, kg, tablet Daily, Start date: 05/21/12 9:00:00, Duration: 30 day, Stop date: 06/19/12 9:00:00 enoxaparin 40 mg, 0.4 mL, SUB-Q No Longer Humberto Route: SUB-Q, Active 2012 [facility] Drug form: INJ, [id number], Dosing Weight 129.545, kg, Start date: 05/20/12 17:00:00, Duration: 30 day, Stop date: 06/18/12 17:00:00 metFORmin 500 mg 500 mg, 1 tab, PO No Longer Humberto oral tablet Route: PO, 2012 [facility] Drug form: TAB, BID-Meals, Dosing Weight 129.545, kg, Start date: 05/20/12 17:00:00, Duration: 30 day, Stop date: 06/19/12 8:00:00 gabapentin 300 mg 300 mg, 1 cap, PO No Longer Bentley oral capsule Route: PO, 2012 [facility] Drug form: CAP, BID, Dosing Weight 129.545, kg, Start date: 05/20/12 17:00:00, Duration: 30 day, Stop date: 06/19/12 9:00:00 aspirin 325 mg 325 mg, 1 tab, PO No Longer Bentley MH tablet Route: PO, 2012 [facility] Drug form: TAB, Q24H, Dosing Weight 129.545, kg, Start date: 05/20/12 17:00:00, Duration: 30 day, Stop date: 06/18/12 17:00:00 Lipitor 20 mg, 2 tab, PO No Longer Bentley MH Route: PO, 2012 [facility] Drug form: TAB, QPM, Dosing Weight 129.545, kg, Start date: 05/20/12 17:00:00, Duration: 30 day, Stop date: 06/18/12 17:00:00 valsartan 160 mg, 1 tab, PO No Longer Bentley Route: PO, 2012 [facility] Drug form: TAB, Daily, Dosing Weight 129.545, kg, Priority: STAT, Start date: 05/20/12 15:57:00, Duration: 30 day, Stop date: 06/19/12 9:00:00 amLODipine 10 mg, 2 tab, PO No Longer Bentley Route: PO, Active 2012 [facility] Drug form: TAB, Daily, Dosing Weight 129.545, kg, Priority: STAT, Start date: 05/20/12 15:57:00, Duration: 30 day, Stop date: 06/19/12 9:00:00 vancomycin 1 gm, 200 mL, IVPB No Longer Bentley MH Route: IVPB, Active 2012 [facility] Drug form: INJ, [id number], Start date: 05/20/12 3:00:00, Duration: 30 day, Stop date: 06/18/12 15:00:00 Zosyn 3.375 gm, 100 IVPB No Longer Sarvat 05/20/ MH mL, Route: Active 2012 [facility] IVPB, Drug form: PDR/INJ, [id number], Dosing Weight 129.091, kg, Priority: STAT, Start date: 05/20/12 2:20:00, Duration: 30 day, Stop date: 06/18/12 18:00:00 glucagon 1 mg, Route: IM No Longer Bentley 05/20/ IM, Drug form: Active 2012 [facility] PDR/INJ, PRN, Dosing Weight 129.545, kg, PRN Blood Glucose Results, Start date: 05/20/12 2:15:00, Duration: 30 day, Stop date: 06/19/12 2:14:00 Dextrose 50% 12.5 gm, 25 IVP No Longer Bentley Syringe mL, Route: Active 2012 [facility] IVP, Drug Form: INJ, Dosing Weight 129.545, kg, PRN, PRN Blood Glucose Results, Start date: 05/20/12 2:15:00, Duration: 30 day, Stop date: 06/19/12 2:14:00 insulin aspart 5 unit, 0.05 SUB-Q No Longer Bentley 05/20/ MH mL, Route: Active 2012 [facility] SUB-Q, Drug form: SOLN, TID-Before Meals, Dosing Weight 129.545, kg, PRN Blood Glucose Results, Start date: 05/20/12 2:15:00, Duration: 30 day, Stop date: 06/19/12 2:14:00 Lipitor 20 mg 20 mg, 1 tab, PO Active Bentley 05/20/ MH oral tablet PO, Daily, 2012 [facility] tab, Substitution Allowed, TAB aspirin 325 mg 325 mg, 1 tab, PO Active Bentley 05/20/ MH tablet PO, Daily, 2012 [facility] Substitution Allowed, TAB metFORmin 500 mg 500 mg, 1 tab, PO Active Bentley 05/20/ MH oral tablet, PO, BID, 2012 [facility] extended release Substitution Allowed, TAB Plavix 75 mg oral 75 mg, 1 tab, PO Active [place] 03/19/ MH tablet PO, Daily, 2012 [facility] tab, Substitution Allowed, TAB Exforge HCT 10 1 tab, PO, PO No Longer Bentley mg-320 mg-25 mg Daily, 30 tab, Active 2012 [facility] oral tablet Substitution Allowed, Maintenance, TAB gabapentin 300 mg 300 mg, 1 cap, PO Active [place] oral capsule PO, BID, 2012 Substitution Allowed, CAP Zosyn 3.375 gm, IVPB No Longer Popat Route: IVPB, Active 2012 [facility] ONCE, Dosing Weight 129.091, kg, Priority: STAT, Start date: 05/19/12 21:39:00, Stop date: 05/19/12 21:39:00 atorvastatin 20 not defined NA Active Hasan 2.16.840.1 mg Tab .785686.4 68 clopidogrel 75 mg not defined NA Active Hasan 2.16.840.1 tablet .920697.4 68 Metformin 500 mg not defined NA Active Hasan 2.16.840.1 Tab .985388.4 68 Valsartan 1 tablet Orally Active 320 MG Orally Hasan 2.16.840.1 Once a day .578870.4. 68 Aspir-81 1 tablet Orally Active 81 MG Orally Hasan 2.16.840.1 Once a day .032208.4. 68 Fenofibrate 1 tablet Orally Active 145 MG Orally Hasan 2.16.840.1 Once a day .849546.4. 68 Hydrochlorothiazi 1 tablet in Orally Active 25 MG Orally Hasan 2.16.840.1 de the morning Three times a .655589.4. Week 68 Amlodipine 10 mg not defined NA Active Hasan 2.16.840.1 Tab .289536.4 68 Vantin 1 tablet Orally Active 200 MG Orally Hasan 2.16.840.1 every 12 hrs .739181.4. 68 Gabapentin 1 capsule Orally Active 300 MG Orally Hasan 2.16.840.1 Three times a .230157.4. day 68 Valsartan 1 tablet Orally Active 320 MG Orally Hasan 2.16.840.1 Once a day .325968.4. 68 Hydrochlorothiazi 1 tablet in Orally Active 25 MG Orally Hasan 2.16.840.1 de the morning Three times a .989591.4. Week 68 Amlodipine 10 mg not defined NA Active Hasan 2.16.840.1 Tab .411421.4. 68 Aspir-81 1 tablet Orally Active 81 MG Orally Hasan 2.16.840.1 Once a day .101420.4. 68 Gabapentin 1 capsule Orally Active 300 MG Orally Hasan 2.16.840.1 Three times a .963044.4. 68 Fenofibrate 1 tablet Orally Active 145 MG Orally Hasan 2.16.840.1 Once a day .057586.4. 68 Clindamycin HCl 2 capsules Orally Active 150 MG Orally Hasan 2.16.840.1 every 8 hrs .284521.4. 68 clopidogrel 75 mg not defined NA Active Hasan 2.16.840.1 tablet .919602.4. 68 Metformin 500 mg not defined NA Active Hasan 2.16.840.1 Tab .244576.4. 68 Allergies, Adverse Reactions, Alerts Substance Category Reaction Severity Reaction Status Date Comments Source type Reported N.K.D.A. Adverse Info Not Adverse Active 2.16.84 Reaction Available Reaction 8 0.1.113 883.4.3 91.11.2 2568 Immunizations Immunization Date Site Status Last Updated Comments Source Given pneumococcal Not Given [facility] 23-valent 8 vaccine influenza virus Right completed Raul [facility] vaccine, 7 Deltoid inactivated pneumococcal Not Given [facility] 13-valent 7 vaccine pneumococcal Not Given [facility] 13-valent 7 vaccine pneumococcal Left completed Noam [facility] 13-valent 7 deltoid vaccine pneumococcal Left completed Noam [facility] 13-valent 7 deltoid vaccine tetanus-diphther 08/20/201 Right completed [facility] [place] [facility] deltoid Results Order Name Results Value Reference Date Interpretation Comments Source Range CHEM PANEL eGFR 68 04/30 Result Comment: The eGFR is calculated using the CKD-EPI formula. In most young, healthy individuals the eGFR will be >90 mL/ min/1.73m2. The eGFR declines with age. An eGFR of 60-89 may be normal in mL/min/1.7 some populations, particularly the elderly, for whom the CKD-EPI formula has not been extensively validated. Use of the eGFR is not recommended in the following populations: [facility] 3m2 Individuals with unstable creatinine concentrations, including patients and those with serious co-morbid conditions. Patients with extremes in muscle mass or diet. The data above are obtained from the National Kidney Disease Education Program (NKDEP) which additionally recommends that when the eGFR is used in patients with extremes of body mass index for purposes of drug dosing, the eGFR should be multiplied by the estimated BMI. CHEM PANEL Glucose Lvl 149 mg/dL 70 - 99 04/30 [facility] CHEM PANEL BUN 14 mg/dL 7 - 22 04/30 [facility] CHEM PANEL Sodium Lvl 139 meq/L 135 - 145 04/30 [facility] CHEM PANEL Potassium 4.1 meq/L 3.5 - 5.1 04/30 Lvl [facility] CHEM PANEL Creatinine 1.08 mg/dL 0.50 - 04/30 Lvl 1.40 /2017 [facility] CHEM PANEL Chloride Lvl 103 meq/L 95 - 109 04/30 [facility] CHEM PANEL CO2 24 meq/L 24 - 32 04/30 [facility] CHEM PANEL Calcium Lvl 9.3 mg/dL 8.5 - 10.5 04/30 [facility] CHEM PANEL AGAP 16.1 meq/L 10.0 - 04/30 20.0 [facility] HEMATOLOGY Segs 61.5 % 45.0 - 04/30 75.0 [facility] HEMATOLOGY Lymphocytes 26.9 % 20.0 - 04/30 40.0 [facility] HEMATOLOGY Monocytes 9.6 % 2.0 - 12.0 04/30 [facility] HEMATOLOGY Eosinophils 1.4 % 0.0 - 4.0 04/30 [facility] HEMATOLOGY Lymphocytes 3.6 K/CMM 1.0 - 5.5 04/30 MH # /2017 [facility] HEMATOLOGY Segs-Bands # 8.3 K/CMM 1.5 - 8.1 04/30 [facility] HEMATOLOGY Monocytes # 1.3 K/CMM 0.0 - 0.8 04/30 [facility] HEMATOLOGY Eosinophils 0.2 K/CMM 0.0 - 0.5 04/30 MH # /2017 [facility] HEMATOLOGY Basophils # 0.1 K/CMM 0.0 - 0.2 04/30 [facility] HEMATOLOGY Basophils 0.6 % 0.0 - 1.0 04/30 /2017 [facility] HEMATOLOGY PTT 32.3 s 22.9 - 04/30 MH 35.8 /2017 [facility] HEMATOLOGY PT 14.1 s 12.0 - 04/30 MH 14.7 [facility] HEMATOLOGY INR 1.09 0.85 - 04/30 MH 1.17 [facility] MPV 6.5 fL 7.4 - 10.4 04/30 [facility] RBC 4.88 M/CMM 4.70 - 04/30 MH 6.10 [facility] HEMATOLOGY WBC 13.5 K/CMM 3.7 - 10.4 04/30 /2017 [facility] HEMATOLOGY Hgb 12.6 g/dL 14.0 - 04/30 MH 18.0 /2017 [facility] MCHC 32.5 g/dL 32.0 - 04/30 MH 36.0 /2017 [facility] MCH 25.8 pg 27.0 - 04/30 MH 31.0 [facility] MCV 79.4 fL 80.0 - 04/30 MH 94.0 /2017 [facility] Hct 38.7 % 42.0 - 04/30 MH 54.0 [facility] HEMATOLOGY Platelet 443 K/CMM 133 - 450 04/30 [facility] HEMATOLOGY RDW 14.9 % 11.5 - 04/30 MH 14.5 [facility] CHEM PANEL eGFR 60 03/21 Result Comment: The eGFR is calculated using the CKD-EPI formula. In most young, healthy individuals the eGFR will be >90 mL/ min/1.73m2. The eGFR declines with age. An eGFR of 60-89 may be normal in mL/min/1. some populations, particularly the elderly, for whom the CKD-EPI formula has not been extensively validated. Use of the eGFR is not recommended in the following populations: [facility] 3m2 Individuals with unstable creatinine concentrations, including patients and those with serious co-morbid conditions. Patients with extremes in muscle mass or diet. The data above are obtained from the National Kidney Disease Education Program (NKDEP) which additionally recommends that when the eGFR is used in patients with extremes of body mass index for purposes of drug dosing, the eGFR should be multiplied by the estimated BMI. CHEM PANEL POC 1.2 mg/dL 0.5 - 1.4 03/21 [facility] Bone scan Bone scan NM Bone scan NM 03/21 NM - [facility] CLINICAL HX: - C61 Malignant neoplasm of prostate. Read by: Rodriguez Landin MD Dictated Date/time: 03/21/17 13:56 Electronically Signed by: Rodriguez Landin MD 03/21/17 13:57 FINAL REPORT COMPARISON: CT abdomen pelvis 03/21/2017 TECHNIQUE: Delayed whole-body imaging was performed following IV administration of 26 mCi of Technetium 99m-MDP. Spot images of the pelvis, thorax and skull are also submitted for review. IV Site: Right Antecubital FINDINGS: Physiologic distribution of tracer is noted in the regional skeleton. No abnormal accumulation of tracer activity is present to suggest metastatic disease. Increased activity in the peripheral joints is consistent with degenerative change. Symmetric tracer distribution is noted in the kidneys.. Normal bladder activity is seen. IMPRESSION: No significant scintigraphic abnormality is noted on the whole body bone scan. SL: [id number] Abdomen/Pe Abdomen/Pelv Abdomen/Pelvis w/wo IV contrast CT 03/21 lvis w/wo is w/wo IV /2017 [facility] IV contrast CT contrast CT TECHNIQUE: Contiguous transaxial images of the abdomen and pelvis were performed from the lung bases to the superior pubic rami without and with IV contrast. Read by: Rodriguez Landin MD Dictated Date/time: 03/21/17 13:57 Electronically Signed by: Rodriguez Landin MD 03/21/17 14:12 FINAL REPORT CLINICAL HX: CT DLP 3200 MGYCM; 100 ML VISI IV \\T\\ 25 ML OMNI PO - C61 Malignant neoplasm of prostate; COMPARISON: None FINDINGS: NONCONTRAST CT images: No tract calculi are evident. CT ABDOMEN with: Lower Chest: Scattered granulomas right lung base, lungs are otherwise clear. GI Tract: Lack of oral contrast limits evaluation of bowel. Bowel gas pattern is unremarkable. There is no evidence for free fluid or free air in the abdomen. Tract and retroperitoneum: The kidneys demonstrate normal morphology and symmetric excretion. No significant retroperitoneal lymphadenopathy is noted. Abdominal viscera: Fatty infiltration of liver. The spleen, pancreas and both adrenals are unremarkable in appearance. The gallbladder demonstrates normal morphology. Vasculature: Aortoiliac atherosclerotic disease. Bone and Soft tissues: Bilateral inguinal hernias containing mesenteric fat. No significant bony abnormality is noted. CT PELVIS without and with: The bladder demonstrates normal morphology on the pre and postcontrast images. Mild enlargement of prostate gland. No free fluid is present in the pelvis. IMPRESSION: Mild enlargement of prostate gland. No evidence for pelvic or retroperitoneal lymphadenopathy. Degenerative changes are noted in the pelvis and thoracolumbar spine. No evidence for bony metastasis. Fatty infiltration of liver. Bilateral inguinal hernias containing mesenteric fat. SL: [id number] CHEM PANEL eGFR 54 03/09 Result Comment: The eGFR is calculated using the CKD-EPI formula. In most young, healthy individuals the eGFR will be >90 mL/ min/1.73m2. The eGFR declines with age. An eGFR of 60-89 may be normal in mL/min/1.7 some populations, particularly the elderly, for whom the CKD-EPI formula has not been extensively validated. Use of the eGFR is not recommended in the following populations: [facility] 3m2 Individuals with unstable creatinine concentrations, including patients and those with serious co-morbid conditions. Patients with extremes in muscle mass or diet. The data above are obtained from the National Kidney Disease Education Program (NKDEP) which additionally recommends that when the eGFR is used in patients with extremes of body mass index for purposes of drug dosing, the eGFR should be multiplied by the estimated BMI. CHEM PANEL Alk Phos 56 unit/L 39 - 136 03/09 [facility] CHEM PANEL AST 36 unit/L 0 - 37 03/09 [facility] CHEM PANEL Bili Total 0.9 mg/dL 0.2 - 1.3 03/09 [facility] CHEM PANEL ALT 37 unit/L 0 - 65 03/09 [facility] CHEM PANEL Albumin Lvl 3.4 g/dL 3.5 - 5.0 03/09 [facility] CHEM PANEL Creatinine 1.31 mg/dL 0.50 - 03/09 Lvl 1.40 /2017 [facility] CHEM PANEL BUN 22 mg/dL 7 - 22 03/09 [facility] CHEM PANEL Sodium Lvl 137 meq/L 135 - 145 03/09 [facility] CHEM PANEL Chloride Lvl 99 meq/L 95 - 109 03/09 [facility] CHEM PANEL Potassium 3.5 meq/L 3.5 - 5.1 03/09 MH Lvl /2017 [facility] CHEM PANEL Total 8.1 g/dL 6.4 - 8.4 03/09 [facility] CHEM PANEL Calcium Lvl 8.5 mg/dL 8.5 - 10.5 03/09 [facility] CHEM PANEL CO2 29 meq/L 24 - 32 03/09 [facility] CHEM PANEL Glucose Lvl 159 mg/dL 70 - 99 03/09 [facility] CHEM PANEL AGAP 12.5 meq/L 10.0 - 03/09 20.0 [facility] CHEM PANEL A/G Ratio 0.7 0.7 - 1.6 03/09 [facility] CHEM PANEL Globulin 4.7 g/dL 2.7 - 4.2 03/09 [facility] CHEM PANEL B/C Ratio 17 6 - 25 03/09 [facility] HEMATOLOGY Eosinophils 0.4 % 0.0 - 4.0 03/09 [facility] HEMATOLOGY Segs 62.9 % 45.0 - 03/09 75.0 /2017 [facility] HEMATOLOGY Monocytes 13.2 % 2.0 - 12.0 03/09 [facility] HEMATOLOGY Lymphocytes 23.2 % 20.0 - 03/09 40.0 [facility] HEMATOLOGY Segs-Bands # 4.4 K/CMM 1.5 - 8.1 03/09 [facility] HEMATOLOGY Lymphocytes 1.6 K/CMM 1.0 - 5.5 03/09 # /2017 [facility] HEMATOLOGY Monocytes # 0.9 K/CMM 0.0 - 0.8 03/09 [facility] HEMATOLOGY Basophils 0.3 % 0.0 - 1.0 03/09 [facility] HEMATOLOGY Platelet 207 K/CMM 133 - 450 03/09 [facility] HEMATOLOGY MCH 27.3 pg 27.0 - 03/09 MH 31.0 [facility] HEMATOLOGY MCHC 34.0 g/dL 32.0 - 03/09 MH 36.0 [facility] HEMATOLOGY RDW 15.6 % 11.5 - 01/06 14.5 [facility] HEMATOLOGY RBC 4.81 M/CMM 4.70 - 03/09 6.10 /2017 [facility] HEMATOLOGY WBC 7.0 K/CMM 3.7 - 10.4 03/09 [facility] HEMATOLOGY Hct 38.6 % 42.0 - 03/09 54.0 [facility] HEMATOLOGY Hgb 13.1 g/dL 14.0 - 03/09 18.0 [facility] HEMATOLOGY MCV 80.3 fL 80.0 - 03/09 94.0 [facility] HEMATOLOGY MPV 7.3 fL 7.4 - 10.4 03/09 [facility] LIPIDS CHD Risk 4.17 4.00 - 03/09 7.30 [facility] LIPIDS VLDL 39 03/09 [facility] LIPIDS LDL 72 mg/dL <=99 mg/dL 03/09 (Calculated) [facility] LIPIDS HDL 35 mg/dL >=61 mg/dL 03/09 [facility] LIPIDS Chol 146 mg/dL <=199 03/09 mg/dL [facility] LIPIDS Trig 194 mg/dL <=149 03/09 mg/dL [facility] SPECIAL Hgb A1C 8.2 % <=5.6 % 03/09 CHEMISTRY [facility] Spine Spine MULTIPLE STUDIES 03/09 - Thoracic Thoracic - [facility] contrast MRI contrast MRI HISTORY: Right hip flexor and quadriceps weakness; right lower extremity weakness ; patient reports low back pain and hip pain. Difficulty with balance Read by: Vazquez Victor MD Dictated Date/time: 03/09/17 13:15 Electronically Signed by: Vazquez Victor MD 03/09/17 13:30 FINAL REPORT COMPARISON: None available. TECHNIQUE: Multiplanar T1, T2, fluid-sensitive weighted MRI of the thoracic and lumbar spine without contrast is performed on the 1.5 Giulia magnet. MRI THORACIC SPINE WITHOUT CONTRAST No fracture is seen. Vertebral body heights are maintained. No bone marrow edema or aggressive osseous lesion. No discitis/osteomyelitis. There is mild multilevel disc degeneration throughout the thoracic spine with small posterior disc protrusions at T1/T2, T2/T3, T10/T11, and T11/T12. Moderate bilateral neural foraminal narrowing at T1/ T2. There is no significant thoracic canal stenosis or high-grade neural foraminal narrowing. No epidural mass or fluid collection is seen. The thoracic spinal cord is normal in size, shape, and signal intensity throughout its course. The paraspinal soft tissues are unremarkable. MRI LUMBAR SPINE WITHOUT CONTRAST No fracture is seen. Vertebral body heights are maintained. No bone marrow edema or aggressive osseous lesion. No discitis/osteomyelitis. Multilevel mild/moderate disc degeneration and mild facet arthrosis resulting in variable canal stenosis and neural foraminal narrowing. No epidural mass or fluid collection is seen. Visualized portion of the kidneys and aorta is normal. DISC SPACES: T12/L1: Mild broad-based posterior disc protrusion. No significant facet arthrosis. No canal stenosis or neural foraminal narrowing. L1/L2: Mild/moderate diffuse disc protrusion. No significant facet arthrosis. No canal stenosis. Mild bilateral neural foraminal narrowing. L2/L3: Mild diffuse disc protrusion and mild bilateral hypertrophic facet arthrosis. Mild canal stenosis and mild bilateral neural foraminal narrowing. L3/L4: Moderate diffuse disc protrusion measuring approximately 5 mm in depth. Mild bilateral degenerative facet hypertrophy. Moderate canal stenosis with crowding of the nerve roots of the cauda equina. Moderate bilateral neural foraminal narrowing. L4/L5: Mild/moderate diffuse disc protrusion. Mild bilateral degenerative facet hypertrophy. No canal stenosis. Mild/moderate bilateral neural foraminal narrowing. L5/S1: Mild/moderate diffuse disc protrusion and mild/moderate bilateral hypertrophic facet arthrosis. No canal stenosis. Moderate to severe bilateral neural foraminal narrowing with possible impingement on the bilateral exiting L5 nerve roots. IMPRESSION: 1. No acute abnormality in the thoracic or lumbar spine. 2. Relatively mild multilevel disc degeneration the thoracic spine. 3. Moderate bilateral neural foraminal narrowing at T1/T2. No high-grade thoracic neural foraminal narrowing. No significant thoracic canal stenosis. 4. Multilevel mild/moderate lumbar spondylosis. 5. Moderate canal stenosis at L3/L4 with crowding of the nerve roots of the cauda equina. 6. Moderate to severe bilateral neural foraminal narrowing at L5/S1 with possible impingement on the bilateral exiting L5 nerve roots. SL: [id number] Spine Spine lumbar MULTIPLE STUDIES 03/09 - lumbar wo - [facility] contrast MRI MRI HISTORY: Right hip flexor and quadriceps weakness; right lower extremity weakness ; patient reports low back pain and hip pain. Difficulty with balance Read by: Vazquez Victor MD Dictated Date/time: 03/09/17 13:15 Electronically Signed by: Vazquez Victor MD 03/09/17 13:30 FINAL REPORT COMPARISON: None available. TECHNIQUE: Multiplanar T1, T2, fluid-sensitive weighted MRI of the thoracic and lumbar spine without contrast is performed on the 1.5 Giulia magnet. MRI THORACIC SPINE WITHOUT CONTRAST No fracture is seen. Vertebral body heights are maintained. No bone marrow edema or aggressive osseous lesion. No discitis/osteomyelitis. There is mild multilevel disc degeneration throughout the thoracic spine with small posterior disc protrusions at T1/T2, T2/T3, T10/T11, and T11/T12. Moderate bilateral neural foraminal narrowing at T1/ T2. There is no significant thoracic canal stenosis or high-grade neural foraminal narrowing. No epidural mass or fluid collection is seen. The thoracic spinal cord is normal in size, shape, and signal intensity throughout its course. The paraspinal soft tissues are unremarkable. MRI LUMBAR SPINE WITHOUT CONTRAST No fracture is seen. Vertebral body heights are maintained. No bone marrow edema or aggressive osseous lesion. No discitis/osteomyelitis. Multilevel mild/moderate disc degeneration and mild facet arthrosis resulting in variable canal stenosis and neural foraminal narrowing. No epidural mass or fluid collection is seen. Visualized portion of the kidneys and aorta is normal. DISC SPACES: T12/L1: Mild broad-based posterior disc protrusion. No significant facet arthrosis. No canal stenosis or neural foraminal narrowing. L1/L2: Mild/moderate diffuse disc protrusion. No significant facet arthrosis. No canal stenosis. Mild bilateral neural foraminal narrowing. L2/L3: Mild diffuse disc protrusion and mild bilateral hypertrophic facet arthrosis. Mild canal stenosis and mild bilateral neural foraminal narrowing. L3/L4: Moderate diffuse disc protrusion measuring approximately 5 mm in depth. Mild bilateral degenerative facet hypertrophy. Moderate canal stenosis with crowding of the nerve roots of the cauda equina. Moderate bilateral neural foraminal narrowing. L4/L5: Mild/moderate diffuse disc protrusion. Mild bilateral degenerative facet hypertrophy. No canal stenosis. Mild/moderate bilateral neural foraminal narrowing. L5/S1: Mild/moderate diffuse disc protrusion and mild/moderate bilateral hypertrophic facet arthrosis. No canal stenosis. Moderate to severe bilateral neural foraminal narrowing with possible impingement on the bilateral exiting L5 nerve roots. IMPRESSION: 1. No acute abnormality in the thoracic or lumbar spine. 2. Relatively mild multilevel disc degeneration the thoracic spine. 3. Moderate bilateral neural foraminal narrowing at T1/T2. No high-grade thoracic neural foraminal narrowing. No significant thoracic canal stenosis. 4. Multilevel mild/moderate lumbar spondylosis. 5. Moderate canal stenosis at L3/L4 with crowding of the nerve roots of the cauda equina. 6. Moderate to severe bilateral neural foraminal narrowing at L5/S1 with possible impingement on the bilateral exiting L5 nerve roots. SL: [id number] URINE AND UA Color Ltyellow 03/09 [facility] URINE AND UA <=1.0 0.1 - 1.0 03/09 STOOL Urobilinogen mg/dL [facility] URINE AND UA WBC 1 /HPF 0 - 5 03/09 [facility] URINE AND UA Leuk Est Negative Negative 03/09 [facility] (03/08/17 10:59 PM) URINE AND UA Nitrite Negative Negative 03/09 [facility] (03/08/17 10:59 PM) URINE AND UA Blood Small Negative 03/09 [facility] *ABN* (03/08/17 10:59 PM) URINE AND UA Bili Negative Negative 03/09 [facility] *NA* (03/08/17 10:59 PM) URINE AND UA RBC 2 /HPF 0 - 2 03/09 [facility] URINE AND UA Mucus Few /LPF None Seen 03/09 STOOL /LPF /2017 [facility] URINE AND UA Sq Epi None Seen 03/09 [facility] URINE AND UA Glucose 50 mg/dL Negative 03/09 STOOL mg/dL [facility] URINE AND UA Protein Negative Negative 03/09 STOOL mg/dL mg/dL [facility] URINE AND UA Ketones Negative Negative 03/09 STOOL mg/dL mg/dL [facility] URINE AND UA Spec Grav 1.010 <=1.030 03/09 [facility] URINE AND UA pH 5.0 5.0 - 8.0 03/09 [facility] URINE AND UA Turbidity Clear Clear 03/09 [facility] (03/08/17 10:59 PM) URINE AND UA Bacteria Occasional None Seen 03/09 STOOL /HPF /HPF /2017 [facility] URINE AND UA Hyal Cast 6 /LPF 0 - 2 03/09 [facility] URINE AND UA Trans Epi 3 /LPF <=0 /LPF 03/09 STOOL [facility] Brain wo Brain wo Patient Name: ASHU BENITEZ 03/09 - contrast contrast MRI - [facility] MRI : 1945; Age: 71 years y/o Male MR: [id number] Read by: Dwayne Velazquez MD Dictated Date/time: 03/09/17 08:09 Electronically Signed by: Dwayne Velazquez MD 03/09/17 08:25 FINAL REPORT Study: Brain wo contrast MRI 03/09/2017 12:31 AM [employer] Ordering Physician: Madhu Moss MD Clinical Indication: - right side weakness; Comparison: CT head dated 03/08/2017. TECHNIQUE: Multiplanar MRI of the brain is performed on a 1.5 Giulia magnet. Contrast: None. FINDINGS: BRAIN PARENCHYMA: No abnormal signal identified on diffusion-weighted imaging to suggest an acute infarction. Slight patchy increased signal on T2- weighted images in the occipital periventricular white matter bilaterally consistent with minimal small vessel change for age. No other abnormal areas of signal intensity identified about the brain. No significant extra-axial fluid collection, mass effect or shift. Probable small lipoma is seen in the right lateral occipital scalp. CEREBELLOPONTINE REGIONS AND SKULL BASE: The craniocervical junction, skull base and pituitary gland are unremarkable. Cerebellar pontine angles unremarkable bilaterally. VENTRICLES: The ventricles and sulci are enlarged for the patient's age but not out of proportion to each other. Findings are consistent with changes of cerebral atrophy. VESSELS: Normal flow voids identified in the major vessels at the base of the brain. ORBITS, VISUALIZED PARANASAL SINUSES AND MASTOIDS: Small amount of right ethmoid and right maxillary sinus disease. Large amount of left mastoid air cell disease. IMPRESSION: 1. Minimal small vessel change for age. 2. Cerebral atrophy. 3. Small amount of right maxillary and right ethmoid sinus disease. 4. Large amount of left mastoid air cell disease. 5. Probable small lipoma in the right lateral occipital scalp. SL: [id number] CARDIAC CK MB Index null 0.0 - 2.5 03/09 ENZYMES [facility] CARDIAC Total CK 272 unit/L 12 - 191 03/09 ENZYMES [facility] CARDIAC BNP 32 pg/mL <=100 03/09 ENZYMES pg/mL /2017 [facility] CARDIAC CK MB null 0.5 - 3.6 03/09 ENZYMES [facility] CARDIAC Troponin-I null 0.00 - 03/09 ENZYMES 0.40 [facility] ELECTROLYT Chloride Lvl 95 meq/L 95 - 109 03/09 ES [facility] ELECTROLYT Creatinine 1.61 mg/dL 0.50 - 03/09 ES Lvl 1.40 [facility] ELECTROLYT BUN 26 mg/dL 7 - 22 03/09 ES [facility] ELECTROLYT Potassium 3.4 meq/L 3.5 - 5.1 03/09 ES Lvl [facility] ELECTROLYT Sodium Lvl 130 meq/L 135 - 145 03/09 ES [facility] ELECTROLYT Total 8.3 g/dL 6.4 - 8.4 03/09 ES Protein [facility] ELECTROLYT B/C Ratio 16 6 - 25 03/09 ES [facility] ELECTROLYT Albumin Lvl 3.7 g/dL 3.5 - 5.0 03/09 ES [facility] ELECTROLYT AGAP 12.4 meq/L 10.0 - 03/09 ES 20.0 [facility] ELECTROLYT CO2 26 meq/L 24 - 32 03/09 ES [facility] ELECTROLYT Glucose Lvl 182 mg/dL 70 - 99 03/09 ES [facility] ELECTROLYT Globulin 4.6 g/dL 2.7 - 4.2 03/09 ES [facility] ELECTROLYT A/G Ratio 0.8 0.7 - 1.6 03/09 ES [facility] ELECTROLYT eGFR 42 03/09 Result Comment: The eGFR is calculated using the CKD-EPI formula. In most young, healthy individuals the eGFR will be >90 mL/ min/1.73m2. The eGFR declines with age. An eGFR of 60-89 may be normal in ES mL/min/1.7 some populations, particularly the elderly, for whom the CKD-EPI formula has not been extensively validated. Use of the eGFR is not recommended in the following populations: [facility] 3m2 Individuals with unstable creatinine concentrations, including patients and those with serious co-morbid conditions. Patients with extremes in muscle mass or diet. The data above are obtained from the National Kidney Disease Education Program (NKDEP) which additionally recommends that when the eGFR is used in patients with extremes of body mass index for purposes of drug dosing, the eGFR should be multiplied by the estimated BMI. ELECTROLYT Alk Phos 59 unit/L 39 - 136 03/09 [facility] ELECTROLYT AST 32 unit/L 0 - 37 03/09 [facility] ELECTROLYT ALT 34 unit/L 0 - 65 03/09 [facility] ELECTROLYT Bili Total 0.9 mg/dL 0.2 - 1.3 03/09 [facility] ELECTROLYT Calcium Lvl 9.1 mg/dL 8.5 - 10.5 03/09 [facility] HEMATOLOGY Monocytes # 0.8 K/CMM 0.0 - 0.8 03/09 [facility] HEMATOLOGY Lymphocytes 1.4 K/CMM 1.0 - 5.5 03/09 [facility] HEMATOLOGY Segs-Bands # 6.5 K/CMM 1.5 - 8.1 03/09 [facility] HEMATOLOGY Basophils 0.3 % 0.0 - 1.0 03/09 [facility] HEMATOLOGY Lymphocytes 15.6 % 20.0 - 03/09 40.0 [facility] HEMATOLOGY Segs 74.7 % 45.0 - 03/09 75.0 [facility] HEMATOLOGY Eosinophils 0.1 % 0.0 - 4.0 03/09 [facility] HEMATOLOGY Monocytes 9.3 % 2.0 - 12.0 03/09 [facility] HEMATOLOGY Platelet 225 K/CMM 133 - 450 03/09 [facility] HEMATOLOGY MPV 7.5 fL 7.4 - 10.4 03/09 [facility] HEMATOLOGY RBC 4.99 M/CMM 4.70 - 03/09 6.10 [facility] HEMATOLOGY WBC 8.7 K/CMM 3.7 - 10.4 03/09 [facility] HEMATOLOGY RDW 15.9 % 11.5 - 03/09 14.5 [facility] HEMATOLOGY MCHC 34.1 g/dL 32.0 - 03/09 36.0 [facility] HEMATOLOGY MCH 27.5 pg 27.0 - 03/09 31.0 [facility] HEMATOLOGY MCV 80.8 fL 80.0 - 03/09 94.0 [facility] HEMATOLOGY Hct 40.3 % 42.0 - 03/09 54.0 [facility] HEMATOLOGY Hgb 13.7 g/dL 14.0 - 03/09 18.0 [facility] Ext Lower Ext Lower Clinical Indication: - evaluate for RLE weakness/ pain, . 03/09 Venous Venous [facility] Doppler Doppler Unilat US Unilat US Comparison: 01/17/2015. Read by: Jim Carver MD Dictated Date/time: 03/09/17 01:09 Electronically Signed by: Jim Carver MD 03/09/17 01:11 FINAL REPORT TECHNIQUE: Sonographic evaluation of the right lower extremity veins was performed using high resolution B-mode imaging, along with pulse and color Doppler imaging. Findings: Right common femoral, femoral, popliteal and calf veins demonstrate normal color Doppler flow and compressibility. There is proper augmentation with compression of the calf or foot. IMPRESSION: Negative. SL: RASHMI Chest Chest 1view Clinical Indication: Chest pain - 03/08 1view DX DX [facility] Comparison: 12/04/2016 Read by: Diana Lagunas MD Dictated Date/time: 03/08/17 17:23 Electronically Signed by: Diana Lagunas MD 03/08/17 17:24 FINAL REPORT Technique: X-ray chest frontal projection FINDINGS: There is no consolidation, pleural effusion or pneumothorax. The heart is normal in size. The mediastinum and binu are unremarkable. The visualized bones and soft tissues are within normal limits. IMPRESSION: No chest radiographic evidence of acute cardiopulmonary disease. SL: MARYJO Spine Spine Clinical Indication: Pain Post Trauma; 03/08 cervical cervical wo [facility] wo contrast CT contrast (ER) CT (ER) Comparison: None. Read by: Diana Lagunas MD Dictated Date/time: 03/08/17 16:28 Electronically Signed by: Diana Lagunas MD 03/08/17 16:33 FINAL REPORT Technique: Multi-detector CT imaging of the cervical spine is performed. Coronal and sagittal reconstructions were obtained. CT imaging was performed with exposure control parameters to reduce radiation dose. CT Radiation Dose DLP 948.45 mGy-cm FINDINGS: ALIGNMENT AND GENERAL ASSESSMENT: There is normal alignment of the cervical spine. There are no fractures or subluxations. The craniocervical junction is normal. The atlanto-dental alignment appears un remarkable. The facet joint, spinolaminar and spinous process alignment are normal. DISK SPACES AND SOFT TISSUES: The prevertebral soft tissues are normal. There are multilevel degenerative changes throughout the cervical spine with anterior and posterior osteophytes, disk bulges as well as bilateral uncovertebral and facet hypertrophy. There is moderate to severe spinal canal stenosis at C5-C6. Partial opacification of left mastoid air cells. VISUALIZED LUNG APICES: Unremarkable. MRI of the cervical spine may be performed, if there is further concern. IMPRESSION: Degenerative changes within the cervical spine without acute fractures or subluxations. Moderate to severe spinal canal stenosis at C5-C6. Partial opacification of left mastoid air cells. SL: BMUSTAFA-Sharon Brain wo Brain wo STUDY: Brain wo contrast CT 03/08/2017 2:33 PM [employer] 03/08 [facility] contrast contrast CT /2017 - [facility] CT Ordering Physician: Jonny Toussaint Read by: Parish Gudino MD Dictated Date/time: 03/08/17 16:27 Patient Name: ASHU BENITEZ MR: [id number] Electronically Signed by: Parish Gudino MD 03/08/17 16:31 FINAL REPORT : 1945; Age: 71 years y/o Male Clinical Indication: Headache with Trauma; dlp: 981.54; EY - trauma; Pt had prostate biopsy Saturday and began getting confused yesterday. Daughter states that pt fell 2 times this AM, has weakness. Pt s tates "I feel like a drunk person". Hx HTN, DM, cardaic stents Comparison: None TECHNIQUE: Multiple contiguous transaxial noncontrast CT images were obtained through the head. Coronal and sagittal reformatted images were prepared. FINDINGS: BRAIN PARENCHYMA: 1. Mild diffuse age-appropriate atrophy is present associated with mild nonspecific periventricular low attenuation most consistent with old microangiopathic ischemic change. 2. No evidence of acute intracranial hemorrhage, mass lesion, mass effect , midline shift, or extra-axial fluid collection. VENTRICLES: The lateral ventricles, third ventricle, fourth ventricle, and basilar cisterns are appropriate for degree of atrophy present. PARANASAL SINUSES: Mild diffuse mucoperiosteal thickening in the ethmoid sinus an right maxillary sinus. The visualized portions of the remaining paranasal sinuses are clear. MASTOIDS: Mild opacification of the inferior aspect of the left mastoid air cells. The right mastoid air cells are clear. ORBITS: The visualized portions of the orbits are normal. SOFT TISSUES: No significant abnormality. SKULL: No acute fracture or suspicious osseous lesion. IMPRESSION: 1. Mild diffuse age-appropriate atrophy is present associated with mild nonspecific periventricular low attenuation most consistent with old microangiopathic ischemic change. 2. Mild chronic sinusitis. 3. Mild chronic left mastoiditis. SL: TPAINTER-PC ELECTROLYT AGAP 12.9 meq/L 10.0 - 10 MH ES 20.0 [facility] ELECTROLYT B/C Ratio 13 6 - 25 12/31 ES [facility] ELECTROLYT Globulin 4.7 g/dL 2.7 - 4.2 12/31 [facility] ELECTROLYT A/G Ratio 0.9 0.7 - 1.6 12/31 [facility] ELECTROLYT eGFR 63 12/31 Result Comment: The eGFR is calculated using the CKD-EPI formula. In most young, healthy individuals the eGFR will be >90 mL/ min/1.73m2. The eGFR declines with age. An eGFR of 60-89 may be normal in ES mL/min/1.7 /2016 some populations, particularly the elderly, for whom the CKD-EPI formula has not been extensively validated. Use of the eGFR is not recommended in the following populations: [facility] 3m2 Individuals with unstable creatinine concentrations, including patients and those with serious co-morbid conditions. Patients with extremes in muscle mass or diet. The data above are obtained from the National Kidney Disease Education Program (NKDEP) which additionally recommends that when the eGFR is used in patients with extremes of body mass index for purposes of drug dosing, the eGFR should be multiplied by the estimated BMI. ELECTROLYT Bili Total 0.4 mg/dL 0.2 - 1.3 12/31 MH ES [facility] ELECTROLYT Albumin Lvl 4.1 g/dL 3.5 - 5.0 12/31 ES [facility] ELECTROLYT ALT 28 unit/L 0 - 65 12/31 [facility] ELECTROLYT Total 8.8 g/dL 6.4 - 8.4 12/31 ES [facility] ELECTROLYT Alk Phos 86 unit/L 39 - 136 12/31 [facility] ELECTROLYT AST 20 unit/L 0 - 37 12/31 [facility] ELECTROLYT CO2 28 meq/L 24 - 32 12/31 [facility] ELECTROLYT Calcium Lvl 9.4 mg/dL 8.5 - 10.5 12/31 [facility] ELECTROLYT BUN 15 mg/dL 7 - 22 12/31 [facility] ELECTROLYT Glucose Lvl 222 mg/dL 70 - 99 12/31 [facility] ELECTROLYT Creatinine 1.16 mg/dL 0.50 - 12/31 ES Lvl 1.40 [facility] ELECTROLYT Chloride Lvl 99 meq/L 95 - 109 12/31 [facility] ELECTROLYT Potassium 3.9 meq/L 3.5 - 5.1 12/31 ES Lvl [facility] ELECTROLYT Sodium Lvl 136 meq/L 135 - 145 12/31 [facility] HEMATOLOGY INR 0.98 0.85 - 12/31 1.17 [facility] HEMATOLOGY PT 13.0 s 12.0 - 12/31 14. [facility] HEMATOLOGY PTT 24.6 s 22.9 - 12/31 35.8 [facility] HEMATOLOGY MPV 7.0 fL 7.4 - 10.4 12/31 [facility] HEMATOLOGY MCV 80.9 fL 80.0 - 12/31 94.0 [facility] HEMATOLOGY Hct 38.9 % 42.0 - 12/31 54.0 [facility] HEMATOLOGY Platelet 331 K/CMM 133 - 450 12/31 [facility] HEMATOLOGY RDW 16.7 % 11.5 - 12/31 14. [facility] HEMATOLOGY MCHC 33.6 g/dL 32.0 - 12/31 36.0 [facility] HEMATOLOGY MCH 27.2 pg 27.0 - 12/31 31.0 [facility] HEMATOLOGY Hgb 13.1 g/dL 14.0 - 12/31 18.0 [facility] HEMATOLOGY RBC 4.81 M/CMM 4.70 - 12/31 MH 6.10 [facility] HEMATOLOGY WBC 7.6 K/CMM 3.7 - 10.4 12/31 [facility] HEMATOLOGY Segs 51.2 % 45.0 - 12/31 75.0 [facility] HEMATOLOGY Eosinophils 4.1 % 0.0 - 4.0 12/31 [facility] HEMATOLOGY Basophils 0.3 % 0.0 - 1.0 12/31 [facility] HEMATOLOGY Segs-Bands # 3.9 K/CMM 1.5 - 8.1 12/31 [facility] HEMATOLOGY Lymphocytes 2.8 K/CMM 1.0 - 5.5 12/31 # /2017 [facility] HEMATOLOGY Lymphocytes 36.4 % 20.0 - 12/31 40.0 /2016 [facility] HEMATOLOGY Monocytes 8.0 % 2.0 - 12.0 12/31 [facility] HEMATOLOGY Eosinophils 0.3 K/CMM 0.0 - 0.5 12/31 # /2017 [facility] HEMATOLOGY Monocytes # 0.6 K/CMM 0.0 - 0.8 12/31 [facility] Ext Lower Ext Lower Clinical Indication: - pain and swelling, concerning for infection versus DVT. 12/31 Venous Venous /2016 Doppler Doppler Comparison: None Unilat US Unilat US Read by: Henry Shelton MD Dictated Date/time: 12/31/16 13:40 TECHNIQUE: Electronically Signed by: Henry Shelton MD 12/31/16 13:40 FINAL REPORT Sonographic evaluation of the left lower extremity veins was performed using high resolution B-mode imaging, along with pulse and color Doppler imaging. FINDINGS: The common femoral vein, superficial femoral vein, popliteal vein and visualized posterior tibial/calf veins are patent. There is no echogenic debris to suggest deep venous thrombosis. The saphenofemoral junction is unremarkable. IMPRESSION: No sonographic evidence for deep vein thrombosis of the left lower extremity. SL: [id number] Chest 1 v Chest 1 v Patient Name: ASHU BENITEZ 12/04 for for - [facility] Placement Placement DX : 1945; Age: 71 years Male DX MR: [id number] Read by: Cory Crooks MD Dictated Date/time: 12/04/16 11:03 Study: Chest 1 v for Placement DX Order Time: 12/04/2016 10:40 AM CDT Electronically Signed by: Cory Crooks MD 11:03 FINAL REPORT CLINICAL INDICATION: Line Placement - Chest 1 view for line placement COMPARISON: Chest radiograph on 10/24/2016 FINDINGS: Lines: Right PICC line tip projects over the SVC. Lungs: The lungs are grossly clear. Mediastinum: The cardiac silhouette is mildly enlarged. Midline trachea. Bones and soft tissues: No acute abnormalities. IMPRESSION: Satisfactory position of the right PICC line. SL: [id number] CHEM PANEL eGFR 55 12/03 Result Comment: The eGFR is calculated using the CKD-EPI formula. In most young, healthy individuals the eGFR will be >90 mL/ min/1.73m2. The eGFR declines with age. An eGFR of 60-89 may be normal in mL/min/1. some populations, particularly the elderly, for whom the CKD-EPI formula has not been extensively validated. Use of the eGFR is not recommended in the following populations: [address] Individuals with unstable creatinine concentrations, including patients and those with serious co-morbid conditions. Patients with extremes in muscle mass or diet. The data above are obtained from the National Kidney Disease Education Program (NKDEP) which additionally recommends that when the eGFR is used in patients with extremes of body mass index for purposes of drug dosing, the eGFR should be multiplied by the estimated BMI. CHEM PANEL Potassium 3.7 meq/L 3.5 - 5.1 12/03 MH Lvl [facility] CHEM PANEL Sodium Lvl 137 meq/L 135 - 145 12/03 [facility] CHEM PANEL Creatinine 1.30 mg/dL 0.50 - 12/03 MH Lvl 1.40 /2017 [facility] CHEM PANEL Chloride Lvl 100 meq/L 95 - 109 12/03 [facility] CHEM PANEL CO2 29 meq/L 24 - 32 12/03 [facility] CHEM PANEL Glucose Lvl 152 mg/dL 70 - 99 12/03 [facility] CHEM PANEL BUN 14 mg/dL 7 - 22 12/03 [facility] CHEM PANEL Calcium Lvl 8.9 mg/dL 8.5 - 10.5 12/03 [facility] CHEM PANEL AGAP 11.7 meq/L 10.0 - 12/03 MH 20.0 2017 [facility] HEMATOLOGY Eosinophils 4.4 % 0.0 - 4.0 12/03 [facility] HEMATOLOGY Segs 53.4 % 45.0 - 12/03 MH 75.0 /2017 [facility] HEMATOLOGY Lymphocytes 30.6 % 20.0 - 12/03 MH 40.0 2017 [facility] HEMATOLOGY Monocytes 10.7 % 2.0 - 12.0 12/03 [facility] HEMATOLOGY Segs-Bands # 4.6 K/CMM 1.5 - 8.1 12/03 /2016 [facility] HEMATOLOGY Basophils 0.9 % 0.0 - 1.0 12/03 [facility] HEMATOLOGY Basophils # 0.1 K/CMM 0.0 - 0.2 12/03 [facility] HEMATOLOGY Eosinophils 0.4 K/CMM 0.0 - 0.5 12/03 # /2016 [facility] HEMATOLOGY Monocytes # 0.9 K/CMM 0.0 - 0.8 12/03 [facility] HEMATOLOGY Lymphocytes 2.6 K/CMM 1.0 - 5.5 12/03 # /2017 [facility] HEMATOLOGY Hct 35.2 % 42.0 - 12/03 54.0 /2016 [facility] HEMATOLOGY MCHC 33.7 g/dL 32.0 - 12/03 36.0 /2016 [facility] MCH 27.0 pg 27.0 - 12/03 31.0 /2016 [facility] HEMATOLOGY MCV 80.2 fL 80.0 - 12/03 94.0 /2016 [facility] MPV 6.6 fL 7.4 - 10.4 12/03 [facility] HEMATOLOGY RDW 14.2 % 11.5 - 12/03 14.5 /2016 [facility] Platelet 555 K/CMM 133 - 450 12/03 [facility] RBC 4.39 M/CMM 4.70 - 12/03 6.10 [facility] HEMATOLOGY WBC 8.5 K/CMM 3.7 - 10.4 12/03 [facility] Hgb 11.9 g/dL 14.0 - 12/03 18.0 /2016 [facility] PT 15.1 s 12.0 - 12/03 14.7 [facility] HEMATOLOGY INR 1.17 0.85 - 12/03 1.17 [facility] Ankle wo Ankle wo Patient Name: ASHU BENITEZ 12/01 - contrast contrast MRI /2016 - [facility] : 1945; Age: 71 years y/o Male MR: [id number] Read by: Dwayne Velazquez MD Dictated Date/time: 12/02/16 13:40 Electronically Signed by: Dwayne Velazquez MD 12/02/16 13:59 FINAL REPORT Study: MRI of the right ankle without contrast dated 12/01/2016. Clinical Indication: - POSSIBLE OSTEO 5TH METATARSA;; Comparison: MRI right foot dated 11/29/2016. Sagittal T1, sagittal STIR, axial T1, axial STIR, coronal T1 and coronal STIR images performed of the right ankle. Plantar to the cuboid bone and extending proximal to the base of the right 5th metatarsal and extending to the lateral skin surface, there is a 2.7 x 1.5 cm area of low signal on T1-weighted images and heterogeneous increased signal on T2-weighted images. It is uncertain whether this represents nonspecific inflammatory changes or abscess formation. There is increased signal on T2-weighted images throughout most of the cuboid bone, lateral cuneiform, mid cuneiform and bases of the 2nd through 5th metatarsals. Findings could all be related to marrow edema from neuropathic joint but cannot exclude changes of osteomyelitis in any of these bones particularly to the cuboid bone and base of the 4th and 5th metatarsals. There is patchy increased signal on T2-weighted images in the anterior calcaneal bone particularly laterally that could represent osteomyelitis or neuropathic changes. Fluid is seen about the peroneal tendons representing a nonspecific tenosynovitis. Soft tissue swelling is seen about the right ankle representing a nonspecific cellulitis. Right ankle effusion noted. Osteochondral lesion is seen in the mid distal tibial epiphysis span can 12 x 7 mm. Small sclerotic focus is seen in the mid superior talus bone. No other abnormal fluid collection identified about the right ankle. CONCLUSIONS: 1. Nonspecific inflammatory changes versus abscess formation plantar to the cuboid bone extending to the lateral skin surface. 2. Marrow edema about the bases of the 2nd through 5th metatarsals and tarsal bones as above that may represent neuropathic changes but cannot exclude changes of osteomyelitis particularly to the cuboid bone, bases of the 4th and 5th metatarsals and anterior lateral calcaneus. 3. Nonspecific cellulitis about the right ankle. 4. Right ankle effusion. 5. Osteochondral lesion mid distal tibial epiphysis. 6. Nonspecific tenosynovitis about the peroneal tendons. SL: CSODERSTROM-PC TOXICOLOGY Vanco Tr 17.2 ug/ml 12/01 [facility] TOXICOLOGY Vanco Tr TND 0 12/01 [facility] CHEM PANEL eGFR 60 11/30 Result Comment: The eGFR is calculated using the CKD-EPI formula. In most young, healthy individuals the eGFR will be >90 mL/ min/1.73m2. The eGFR declines with age. An eGFR of 60-89 may be normal in mL/min/1.7 some populations, particularly the elderly, for whom the CKD-EPI formula has not been extensively validated. Use of the eGFR is not recommended in the following populations: [facility] 3m2 Individuals with unstable creatinine concentrations, including patients and those with serious co-morbid conditions. Patients with extremes in muscle mass or diet. The data above are obtained from the National Kidney Disease Education Program (NKDEP) which additionally recommends that when the eGFR is used in patients with extremes of body mass index for purposes of drug dosing, the eGFR should be multiplied by the estimated BMI. CHEM PANEL Albumin Lvl 2.9 g/dL 3.5 - 5.0 11/30 [facility] CHEM PANEL AST 11 unit/L 0 - 37 11/30 [facility] CHEM PANEL Bili Total 0.8 mg/dL 0.2 - 1.3 11/30 [facility] CHEM PANEL ALT 21 unit/L 0 - 65 11/30 [facility] CHEM PANEL Total 8.1 g/dL 6.4 - 8.4 11/30 [facility] CHEM PANEL Alk Phos 88 unit/L 39 - 136 11/30 [facility] CHEM PANEL Glucose Lvl 133 mg/dL 70 - 99 11/30 [facility] CHEM PANEL BUN 15 mg/dL 7 - 22 11/30 [facility] CHEM PANEL Calcium Lvl 8.9 mg/dL 8.5 - 10.5 11/30 [facility] CHEM PANEL CO2 27 meq/L 24 - 32 11/30 [facility] CHEM PANEL Chloride Lvl 99 meq/L 95 - 109 11/30 [facility] CHEM PANEL Potassium 3.8 meq/L 3.5 - 5.1 11/30 MH Lvl [facility] CHEM PANEL Sodium Lvl 135 meq/L 135 - 145 11/30 [facility] CHEM PANEL Creatinine 1.20 mg/dL 0.50 - 11/30 MH Lvl 1.40 [facility] CHEM PANEL AGAP 12.8 meq/L 10.0 - 11/30 MH .0 [facility] CHEM PANEL Globulin 5.2 g/dL 2.7 - 4.2 11/30 [facility] CHEM PANEL A/G Ratio 0.6 0.7 - 1.6 11/30 [facility] CHEM PANEL B/C Ratio 12 6 - 25 11/30 /2016 [facility] CHEM PANEL Magnesium 2.1 mg/dL 1.8 - 2.4 11/30 Lvl /2016 [facility] HEMATOLOGY Platelet 545 K/CMM 133 - 450 11/30 [facility] HEMATOLOGY MPV 6.6 fL 7.4 - 10.4 11/30 /2016 [facility] HEMATOLOGY Hct 33.1 % 42.0 - 11/30 MH 54.0 /2016 [facility] HEMATOLOGY MCH 26.6 pg 27.0 - 11/30 MH 31.0 [facility] HEMATOLOGY MCV 79.6 fL 80.0 - 11/30 MH 94.0 [facility] HEMATOLOGY MCHC 33.4 g/dL 32.0 - 11/30 MH 36.0 /2016 [facility] HEMATOLOGY RDW 14.1 % 11.5 - 11/30 MH 14. [facility] HEMATOLOGY WBC 10.1 K/CMM 3.7 - 10.4 11/30 /2016 [facility] HEMATOLOGY RBC 4.16 M/CMM 4.70 - 11/30 MH 6.10 [facility] HEMATOLOGY Hgb 11.1 g/dL 14.0 - 11/30 MH 18.0 [facility] HEMATOLOGY Basophils # 0.1 K/CMM 0.0 - 0.2 11/30 [facility] HEMATOLOGY Monocytes # 1.2 K/CMM 0.0 - 0.8 11/30 [facility] HEMATOLOGY Eosinophils 0.3 K/CMM 0.0 - 0.5 11/30 MH # /2016 [facility] HEMATOLOGY Segs 59.8 % 45.0 - 11/30 MH 75.0 [facility] HEMATOLOGY Basophils 0.8 % 0.0 - 1.0 11/30 [facility] HEMATOLOGY Segs-Bands # 6.0 K/CMM 1.5 - 8.1 11/30 [facility] HEMATOLOGY Lymphocytes 2.5 K/CMM 1.0 - 5.5 11/30 MH # /2016 [facility] HEMATOLOGY Lymphocytes 25.1 % 20.0 - 11/30 MH 40.0 [facility] HEMATOLOGY Monocytes 11.5 % 2.0 - 12.0 11/30 [facility] HEMATOLOGY Eosinophils 2.8 % 0.0 - 4.0 11/30 [facility] URINE AND UA Leuk Est Negative Negative 11/30 STOOL /2016 [facility] (11/29/16 11:45 PM) URINE AND UA Nitrite Negative Negative 11/30 [facility] (11/29/16 11:45 PM) URINE AND UA Blood Negative Negative 11/30 [facility] (11/29/16 11:45 PM) URINE AND UA RBC null 0 - 2 11/30 [facility] URINE AND UA WBC 1 /HPF 0 - 5 11/30 [facility] URINE AND UA <=1.0 0.1 - 1.0 11/30 STOOL Urobilinogen mg/dL [facility] [facility] URINE AND UA Sq Epi None Seen 11/30 [facility] URINE AND UA Color Ltyellow 11/30 [facility] URINE AND UA Glucose 50 mg/dL Negative 11/30 STOOL mg/dL [facility] URINE AND UA Protein Negative Negative 11/30 STOOL mg/dL mg/dL [facility] URINE AND UA pH 7.0 5.0 - 8.0 11/30 [facility] URINE AND UA Spec Grav 1.013 <=1.030 11/30 [facility] URINE AND UA Bili Negative Negative 11/30 [facility] *NA* (11/29/16 11:45 PM) URINE AND UA Ketones Negative Negative 11/30 STOOL mg/dL mg/dL [facility] URINE AND UA Turbidity Clear Clear 11/30 [facility] (11/29/16 11:45 PM) CHEM PANEL Creatinine 1.30 mg/dL 0.50 - 11/30 Lvl 1.40 /2016 [facility] CHEM PANEL eGFR 55 11/30 Result Comment: The eGFR is calculated using the CKD-EPI formula. In most young, healthy individuals the eGFR will be >90 mL/ min/1.73m2. The eGFR declines with age. An eGFR of 60-89 may be normal in mL/min/1.7 2017 some populations, particularly the elderly, for whom the CKD-EPI formula has not been extensively validated. Use of the eGFR is not recommended in the following populations: [facility] 3m2 Individuals with unstable creatinine concentrations, including patients and those with serious co-morbid conditions. Patients with extremes in muscle mass or diet. The data above are obtained from the National Kidney Disease Education Program (NKDEP) which additionally recommends that when the eGFR is used in patients with extremes of body mass index for purposes of drug dosing, the eGFR should be multiplied by the estimated BMI. Foot wo Foot wo 11/29 - contrast contrast MRI /2016 - [facility] MRI EXAM: Right foot wo contrast MRI Read by: Todd Doss MD Dictated Date/time: 11/30/16 09:23 INDICATION: - chronic OM, right foot ulcer. Later ulcer of the right foot. Electronically Signed by: Todd Doss MD 11/30/16 09:34 FINAL REPORT COMPARISON: Plain films of the right foot from 09/15/2016 TECHNIQUE: Multiplanar, multisequence magnetic resonance imaging of the right midfoot and forefoot was performed without the administration of intravenous gadolinium contrast. FINDINGS: Ulceration along the lateral soft tissues of the midfoot is seen with numerous underlying foci of ferromagnetic susceptibility artifact, suspicious for surgical clips. There is associated bloo jose antonio artifact which obscures adjacent osseous and soft tissue structures. There are multifocal subcortical and subchondral cystic erosions throughout the bones of the midfoot about the 2nd through 5th TMT joints with extensive surrounding bone marrow edema involving the cunei form bones, navicular bone, cuboid bone, as well as 2nd through 5th metatarsal bases. Bone marrow edema extends distally into the 2nd through 5th metatarsal shafts. There are multifocal dorsal fluid col lections overlying the 2nd through 5th TMT articulations with largest measuring 1.8 x 0.6 cm. Mild hallux valgus deformity is seen with mild osteoarthrosis of the 1st MTP joint. Mild osteoarthrosis of the metatarsosesamoid articulations is also seen. The visualized plantar fascia is intact. Hyperintensity with severe atrophy of the forefoot musculature is seen, may represent acute on chronic denervation. Moderate diffuse edema along the dorsal soft tissues of the forefoot is seen. IMPRESSION: 1. Ulceration of the lateral soft tissues of the midfoot with subcortical and subchondral cystic erosions and extensive surrounding bone marrow edema throughout the midfoot, centered about the 2nd throu gh 5th TMT articulations. This is highly suspicious for Charcot's neuroarthropathy. Superimposed osteomyelitis cannot be excluded. 2. Multiple small fluid collections in the dorsal soft tissues of the midfoot overlying the 2nd through 5th TMT joints with largest measuring 1.8 x 0.6 cm. SL: [id number] CARDIAC CK MB Index 1.0 0.0 - 2.5 10/24 ENZYMES /2016 [facility] CARDIAC Troponin-I null 0.00 - 10/24 ENZYMES 0.40 /2017 [facility] CARDIAC CK MB 0.9 ng/mL 0.5 - 3.6 10/24 ENZYMES [facility] CARDIAC Total CK 89 unit/L 12 - 191 10/24 ENZYMES [facility] CHEM PANEL eGFR 55 10/24 Result Comment: The eGFR is calculated using the CKD-EPI formula. In most young, healthy individuals the eGFR will be >90 mL/ min/1.73m2. The eGFR declines with age. An eGFR of 60-89 may be normal in mL/min/1.7 /2016 some populations, particularly the elderly, for whom the CKD-EPI formula has not been extensively validated. Use of the eGFR is not recommended in the following populations: [facility] 3m2 Individuals with unstable creatinine concentrations, including patients and those with serious co-morbid conditions. Patients with extremes in muscle mass or diet. The data above are obtained from the National Kidney Disease Education Program (NKDEP) which additionally recommends that when the eGFR is used in patients with extremes of body mass index for purposes of drug dosing, the eGFR should be multiplied by the estimated BMI. CHEM PANEL A/G Ratio 0.7 0.7 - 1.6 10/24 [facility] CHEM PANEL B/C Ratio 12 6 - 25 10/24 [facility] CHEM PANEL Globulin 4.9 g/dL 2.7 - 4.2 10/24 [facility] CHEM PANEL Alk Phos 74 unit/L 39 - 136 10/24 [facility] CHEM PANEL AGAP 12.6 meq/L 10.0 - 10/24 20.0 [facility] CHEM PANEL Bili Total 0.5 mg/dL 0.2 - 1.3 10/24 [facility] CHEM PANEL ALT 12 unit/L 0 - 65 10/24 [facility] CHEM PANEL Total 8.5 g/dL 6.4 - 8.4 10/24 Protein [facility] CHEM PANEL AST 17 unit/L 0 - 37 10/24 [facility] CHEM PANEL Albumin Lvl 3.6 g/dL 3.5 - 5.0 10/24 [facility] CHEM PANEL CO2 29 meq/L 24 - 32 10/24 [facility] CHEM PANEL Potassium 3.6 meq/L 3.5 - 5.1 10/24 [facility] CHEM PANEL Chloride Lvl 97 meq/L 95 - 109 10/24 [facility] CHEM PANEL Calcium Lvl 9.1 mg/dL 8.5 - 10.5 10/24 [facility] CHEM PANEL Creatinine 1.30 mg/dL 0.50 - 10/24 MH Lvl 1.40 /2016 [facility] CHEM PANEL Sodium Lvl 135 meq/L 135 - 145 10/24 [facility] CHEM PANEL Glucose Lvl 175 mg/dL 70 - 99 10/24 [facility] CHEM PANEL BUN 16 mg/dL 7 - 22 10/24 [facility] HEMATOLOGY Segs-Bands # 5.8 K/CMM 1.5 - 8.1 10/24 [facility] HEMATOLOGY Lymphocytes 2.5 K/CMM 1.0 - 5.5 10/24 [facility] HEMATOLOGY Monocytes # 1.1 K/CMM 0.0 - 0.8 10/24 [facility] HEMATOLOGY Eosinophils 0.2 K/CMM 0.0 - 0.5 10/24 [facility] HEMATOLOGY Basophils # 0.1 K/CMM 0.0 - 0.2 10/24 [facility] HEMATOLOGY Basophils 0.7 % 0.0 - 1.0 10/24 [facility] HEMATOLOGY Lymphocytes 25.9 % 20.0 - 10/24 MH 40.0 [facility] HEMATOLOGY Monocytes 11.8 % 2.0 - 12.0 10/24 [facility] HEMATOLOGY Eosinophils 2.1 % 0.0 - 4.0 10/24 [facility] HEMATOLOGY Segs 59.5 % 45.0 - 10/24 MH 75.0 /2016 [facility] HEMATOLOGY PTT 33.2 s 22.9 - 10/24 MH 35.8 [facility] HEMATOLOGY INR 1.11 0.85 - 10/24 MH 1.17 [facility] HEMATOLOGY PT 14.5 s 12.0 - 10/24 MH 14.7 [facility] HEMATOLOGY Hct 36.9 % 42.0 - 10/24 MH 54.0 [facility] HEMATOLOGY Hgb 12.9 g/dL 14.0 - 10/24 MH 18.0 [facility] HEMATOLOGY RBC 4.42 M/CMM 4.70 - 10/24 MH 6.10 [facility] HEMATOLOGY WBC 9.8 K/CMM 3.7 - 10.4 10/24 [facility] HEMATOLOGY MCHC 35.0 g/dL 32.0 - 10/24 MH 36.0 /2016 [facility] HEMATOLOGY MCH 29.2 pg 27.0 - 10/24 MH 31.0 /2016 [facility] HEMATOLOGY MCV 83.4 fL 80.0 - 10/24 94.0 /2016 [facility] HEMATOLOGY MPV 7.2 fL 7.4 - 10.4 10/24 [facility] HEMATOLOGY RDW 13.6 % 11.5 - 10/24 14.5 /2016 [facility] HEMATOLOGY Platelet 295 K/CMM 133 - 450 10/24 [facility] BLOOD BANK Antibody Negative 10/24 RESULTS Scrn /2016 [facility] (10/24/16 10:47 AM) BLOOD BANK ABO/Rh B POS 10/24 RESULTS /2016 [facility] URINE AND Occult Bld Negative Negative 10/24 STOOL Stl [facility] (10/24/16 10:47 AM) Chest Chest 1view Patient Name: ASHU BENITEZ 10/24 - 1view DX DX - [facility] : 1945; Age: 71 years y/o Male MR: [id number] Read by: Moisés Walker MD Dictated Date/time: 10/24/16 11:42 Electronically Signed by: Moisés Walker MD 10/24/16 11:43 FINAL REPORT Study: Chest 1view DX 10/24/2016 10:37 AM CDT Ordering Physician: Clinical Indication: - Anemia; Comparison: 09/20/2016 One view portable chest Stable cardiomegaly. Poor vasculature is within normal limits. The lung kamara are clear. There is no pleural effusion. Right arm PICC terminates at the SVC. IMPRESSION: Stable cardiomegaly. No new or acute finding. SL: [id number] HEMATOLOGY PT 13.6 s 12.0 - 09/20 MH 14.7 [facility] HEMATOLOGY INR 1.02 0.85 - 09/20 MH 1.17 [facility] HEMATOLOGY PTT 28.5 s 22.9 - 09/20 MH 35.8 [facility] Chest Chest 1view Patient Name: ASHU BENITEZ 09/20 - 1view DX DX - [facility] : 1945; Age: 70 years y/o Male MR: [id number] Read by: Angel Melo MD Dictated Date/time: 09/20/16 13:37 Electronically Signed by: Angel Melo MD 09/20/16 13:38 FINAL REPORT * CHEST, portable, 1 view HISTORY: Status post PICC placement COMPARISON: 2016. TECHNIQUE: A portable frontal radiograph of the chest was obtained following PICC placement IMPRESSION: 1. The tip of the right upper extremity PICC is in the mid superior vena cava. The catheter appears to be in good position to utilize for venous access. 2. No evidence of an active or acute process. The lungs are clear. There are no pleural effusions. 3. The heart is normal in size. Prominence of the cardiac silhouette on portable radiography is related to the patient's habitus and portable technique. There is no evidence of failure. 4. The regional skeleton is unremarkable. SL: [id number] ELECTROLYT AGAP 13.5 meq/L 10.0 - 09/16 ES .0 [facility] ELECTROLYT eGFR 60 09/16 Result Comment: The eGFR is calculated using the CKD-EPI formula. In most young, healthy individuals the eGFR will be >90 mL/ min/1.73m2. The eGFR declines with age. An eGFR of 60-89 may be normal in [facility] mL/min/1.7 some populations, particularly the elderly, for whom the CKD-EPI formula has not been extensively validated. Use of the eGFR is not recommended in the following populations: [facility] 3m2 Individuals with unstable creatinine concentrations, including patients and those with serious co-morbid conditions. Patients with extremes in muscle mass or diet. The data above are obtained from the National Kidney Disease Education Program (NKDEP) which additionally recommends that when the eGFR is used in patients with extremes of body mass index for purposes of drug dosing, the eGFR should be multiplied by the estimated BMI. ELECTROLYT Glucose Lvl 116 mg/dL 70 - 99 09/16 ES [facility] ELECTROLYT BUN 21 mg/dL 7 - 22 09/16 ES /2016 [facility] ELECTROLYT Sodium Lvl 141 meq/L 135 - 145 09/16 ES [facility] ELECTROLYT Creatinine 1.20 mg/dL 0.50 - 09/16 ES Lvl 1.40 /2016 [facility] ELECTROLYT CO2 26 meq/L 24 - 32 09/16 ES [facility] ELECTROLYT Calcium Lvl 8.6 mg/dL 8.5 - 10.5 09/16 ES [facility] ELECTROLYT Chloride Lvl 105 meq/L 95 - 109 09/16 MH ES /2016 [facility] ELECTROLYT Potassium 3.5 meq/L 3.5 - 5.1 09/16 ES Lvl /2016 [facility] HEMATOLOGY Monocytes 10.9 % 2.0 - 12.0 09/16 /2016 [facility] HEMATOLOGY Segs 43.6 % 45.0 - 09/16 MH 75.0 /2016 [facility] HEMATOLOGY Lymphocytes 41.0 % 20.0 - 09/16 MH 40.0 /2016 [facility] HEMATOLOGY Lymphocytes 3.3 K/CMM 1.0 - 5.5 09/16 MH # /2016 [facility] HEMATOLOGY Eosinophils 0.3 K/CMM 0.0 - 0.5 09/16 MH # /2016 [facility] HEMATOLOGY Monocytes # 0.9 K/CMM 0.0 - 0.8 09/16 [facility] HEMATOLOGY Basophils # 0.1 K/CMM 0.0 - 0.2 09/16 [facility] HEMATOLOGY Eosinophils 3.6 % 0.0 - 4.0 09/16 [facility] HEMATOLOGY Basophils 0.9 % 0.0 - 1.0 09/16 [facility] HEMATOLOGY Segs-Bands # 3.5 K/CMM 1.5 - 8.1 09/16 [facility] HEMATOLOGY MCV 82.6 fL 80.0 - 09/16 MH 94.0 [facility] HEMATOLOGY MCHC 33.3 g/dL 32.0 - 09/16 MH 36.0 [facility] HEMATOLOGY Platelet 283 K/CMM 133 - 450 09/16 [facility] HEMATOLOGY MPV 7.4 fL 7.4 - 10.4 09/16 [facility] HEMATOLOGY MCH 27.5 pg 27.0 - 09/16 MH 31.0 [facility] HEMATOLOGY RDW 14.8 % 11.5 - 09/16 MH 14.5 [facility] HEMATOLOGY Hct 38.6 % 42.0 - 09/16 MH 54.0 [facility] HEMATOLOGY Hgb 12.8 g/dL 14.0 - 09/16 MH 18.0 [facility] HEMATOLOGY RBC 4.67 M/CMM 4.70 - 09/16 MH 6.10 [facility] HEMATOLOGY WBC 8.0 K/CMM 3.7 - 10.4 09/16 [facility] CHEM PANEL Globulin 4.1 g/dL 2.7 - 4.2 09/16 [facility] CHEM PANEL B/C Ratio 18 6 - 25 09/16 [facility] CHEM PANEL A/G Ratio 1.0 0.7 - 1.6 09/16 [facility] CHEM PANEL AGAP 13.7 meq/L 10.0 - 09/16 MH 20.0 [facility] CHEM PANEL eGFR 46 09/16 Result Comment: The eGFR is calculated using the CKD-EPI formula. In most young, healthy individuals the eGFR will be >90 mL/ min/1.73m2. The eGFR declines with age. An eGFR of 60-89 may be normal in mL/min/1.7 some populations, particularly the elderly, for whom the CKD-EPI formula has not been extensively validated. Use of the eGFR is not recommended in the following populations: [facility] 3m2 Individuals with unstable creatinine concentrations, including patients and those with serious co-morbid conditions. Patients with extremes in muscle mass or diet. The data above are obtained from the National Kidney Disease Education Program (NKDEP) which additionally recommends that when the eGFR is used in patients with extremes of body mass index for purposes of drug dosing, the eGFR should be multiplied by the estimated BMI. CHEM PANEL AST 27 unit/L 0 - 37 09/16 [facility] CHEM PANEL ALT 36 unit/L 0 - 65 09/16 [facility] CHEM PANEL Bili Total 0.4 mg/dL 0.2 - 1.3 09/16 [facility] CHEM PANEL Alk Phos 61 unit/L 39 - 136 09/16 [facility] CHEM PANEL Albumin Lvl 4.2 g/dL 3.5 - 5.0 09/16 [facility] CHEM PANEL Calcium Lvl 9.5 mg/dL 8.5 - 10.5 09/16 [facility] CHEM PANEL Total 8.3 g/dL 6.4 - 8.4 09/16 [facility] CHEM PANEL CO2 25 meq/L 24 - 32 09/16 [facility] CHEM PANEL Potassium 3.7 meq/L 3.5 - 5.1 09/16 MH Lvl [facility] CHEM PANEL Chloride Lvl 102 meq/L 95 - 109 09/16 [facility] CHEM PANEL Creatinine 1.50 mg/dL 0.50 - 09/16 MH Lvl 1.40 [facility] CHEM PANEL Sodium Lvl 137 meq/L 135 - 145 09/16 [facility] CHEM PANEL BUN 27 mg/dL 7 - 22 09/16 [facility] CHEM PANEL Glucose Lvl 163 mg/dL 70 - 99 09/16 [facility] HEMATOLOGY Monocytes # 1.0 K/CMM 0.0 - 0.8 09/16 [facility] HEMATOLOGY Eosinophils 0.2 K/CMM 0.0 - 0.5 09/16 MH # /2016 [facility] HEMATOLOGY Basophils # 0.1 K/CMM 0.0 - 0.2 09/16 [facility] HEMATOLOGY Lymphocytes 3.5 K/CMM 1.0 - 5.5 09/16 MH # /2016 [facility] HEMATOLOGY Segs 52.8 % 45.0 - 09/16 MH 75.0 [facility] HEMATOLOGY Lymphocytes 34.3 % 20.0 - 09/16 40.0 [facility] HEMATOLOGY Segs-Bands # 5.4 K/CMM 1.5 - 8.1 09/16 [facility] HEMATOLOGY Basophils 0.6 % 0.0 - 1.0 09/16 [facility] HEMATOLOGY Eosinophils 2.1 % 0.0 - 4.0 09/16 [facility] Monocytes 10.2 % 2.0 - 12.0 09/16 [facility] HEMATOLOGY RDW 14.7 % 11.5 - 09/16 14.5 [facility] HEMATOLOGY Platelet 322 K/CMM 133 - 450 09/16 [facility] MPV 7.6 fL 7.4 - 10.4 09/16 [facility] MCHC 33.5 g/dL 32.0 - 09/16 36.0 [facility] HEMATOLOGY MCV 83.6 fL 80.0 - 09/16 94.0 [facility] HEMATOLOGY Hct 40.4 % 42.0 - 09/16 54.0 [facility] MCH 28.0 pg 27.0 - 09/16 MH 31.0 [facility] HEMATOLOGY RBC 4.83 M/CMM 4.70 - 09/16 MH 6.10 [facility] HEMATOLOGY WBC 10.2 K/CMM 3.7 - 10.4 09/16 [facility] Hgb 13.5 g/dL 14.0 - 09/16 MH 18.0 [facility] Foot Foot series RIGHT FOOT RADIOGRAPH 3 VIEW 09/15 - series DX /2016 - [facility] CLINICAL INDICATION: Right foot pain, recent surgery, evaluate for infection Read by: Reinier Elliott MD Dictated Date/time: 09/16/16 00:25 Electronically Signed by: Reinier Elliott MD 09/16/16 00:28 FINAL REPORT COMPARISON: Right foot radiograph 06/08/2016 DISCUSSION: There is generalized soft tissue swelling of the foot. There is mild deformity of the soft tissue along the lateral aspect of the midfoot, presumably corresponding to the surgical wound. No subcutaneous emphysema or radiopaque foreign bodies are identified. There are destructive changes of the base of the 5th metatarsal, progressed since 06/08/2016. There is associated periosteal reaction of the proximal to mid 5th metatarsal. There are questionable destructive changes at the base of the 4th metatarsal. Arthrosis of the foot is grossly stable. Calcific or ossific densities are again noted in the region of the plantar fascia. IMPRESSION: The appearance of the base of the 5th metatarsal suggests osteomyelitis. There is questionable osteomyelitis at the base of the 4th metatarsal. SL:16 Ext Lower Ext Lower Patient Name: ASHU BENITEZ 08/27 - Venous Venous /2016 [facility] Doppler Doppler : 1945; Age: 70 years Male Bilat US Bilat US MR: [id number] Read by: Cory Crooks MD Dictated Date/time: 08/27/16 14:16 Study: Ext Lower Venous Doppler Bilat US 08/27/2016 1:01 PM CDT Electronically Signed by: Cory Crooks MD 08/27/16 14 :16 FINAL REPORT CLINICAL INDICATION: - Bilateral leg swelling, history of right foot surgery COMPARISON: None TECHNIQUE: Sonographic evaluation of the bilateral lower extremity veins was performed using high resolution B-mode imaging, along with pulse and color Doppler imaging. FINDINGS: Right lower extremity: The common femoral vein, femoral vein, popliteal vein and visualized posterior tibial/calf veins are patent and compressible. The saphenofemoral junction and visualized greater saphenous vein are patent and compressible. Left lower extremity: The common femoral vein, superficial femoral vein, popliteal vein and visualized posterior tibial/calf veins are patent and compressible The saphenofemoral junction and visualized greater saphenous vein are patent and compressible. IMPRESSION: No evidence of deep venous thrombosis within the bilateral lower extremities. SL: [id number] Chest 1 v Chest 1 v Portable chest: The PICC line tip is in good position at the cavoatrial junction. The cardiac silhouette and pulmonary vasculature are within normal limits. The lungs and pleural spaces are clear. There 07/11 - for for is no significant change compared to 06/12/2016. - [facility] Placement Placement DX DX Read by: Jacobo Ivory MD [id number] Dictated Date/time: 07/11/16 13:23 Electronically Signed by: Jacobo Ivory MD 07/11/16 13:23 FINAL REPORT TOXICOLOGY Vanco Tr TND 10:30 06/14 [facility] TOXICOLOGY Vanco Tr 18.1 ug/ml 06/14 [facility] ELECTROLYT AGAP 14.8 meq/L 10.0 - 06/13 ES 20.0 [facility] ELECTROLYT eGFR 60 06/13 Result Comment: The eGFR is calculated using the CKD-EPI formula. In most young, healthy individuals the eGFR will be >90 mL/ min/1.73m2. The eGFR declines with age. An eGFR of 60-89 may be normal in [facility] mL/min/1.7 some populations, particularly the elderly, for whom the CKD-EPI formula has not been extensively validated. Use of the eGFR is not recommended in the following populations: [facility] 3m2 Individuals with unstable creatinine concentrations, including patients and those with serious co-morbid conditions. Patients with extremes in muscle mass or diet. The data above are obtained from the National Kidney Disease Education Program (NKDEP) which additionally recommends that when the eGFR is used in patients with extremes of body mass index for purposes of drug dosing, the eGFR should be multiplied by the estimated BMI. ELECTROLYT Calcium Lvl 9.0 mg/dL 8.5 - 10.5 06/13 ES [facility] ELECTROLYT Chloride Lvl 104 meq/L 95 - 109 06/13 ES [facility] ELECTROLYT CO2 26 meq/L 24 - 32 06/13 ES [facility] ELECTROLYT Sodium Lvl 141 meq/L 135 - 145 06/13 [facility] ELECTROLYT Potassium 3.8 meq/L 3.5 - 5.1 06/13 ES Lvl /2016 [facility] ELECTROLYT Creatinine 1.20 mg/dL 0.50 - 06/13 ES Lvl 1.40 [facility] ELECTROLYT Glucose Lvl 131 mg/dL 70 - 99 06/13 [facility] ELECTROLYT BUN 13 mg/dL 7 - 22 06/13 [facility] HEMATOLOGY MCV 81.8 fL 80.0 - 06/13 MH 94.0 [facility] HEMATOLOGY Hct 33.9 % 42.0 - 06/13 MH 54.0 /2016 [facility] HEMATOLOGY Hgb 11.7 g/dL 14.0 - 06/13 MH 18.0 [facility] HEMATOLOGY MCH 28.2 pg 27.0 - 06/13 MH 31.0 [facility] HEMATOLOGY MCHC 34.4 g/dL 32.0 - 06/13 MH 36.0 [facility] HEMATOLOGY RBC 4.15 M/CMM 4.70 - 06/13 MH 6.10 [facility] HEMATOLOGY WBC 9.0 K/CMM 3.7 - 10.4 06/13 [facility] HEMATOLOGY RDW 13.9 % 11.5 - 06/13 14. [facility] HEMATOLOGY Platelet 409 K/CMM 133 - 450 06/13 [facility] HEMATOLOGY MPV 6.6 fL 7.4 - 10.4 06/13 [facility] HEMATOLOGY Basophils # 0.1 K/CMM 0.0 - 0.2 06/13 [facility] HEMATOLOGY Eosinophils 0.4 K/CMM 0.0 - 0.5 06/13 MH /2016 [facility] HEMATOLOGY Monocytes # 0.8 K/CMM 0.0 - 0.8 06/13 [facility] HEMATOLOGY Lymphocytes 1.6 K/CMM 1.0 - 5.5 06/13 /2016 [facility] HEMATOLOGY Monocytes 9.0 % 2.0 - 12.0 06/13 [facility] HEMATOLOGY Lymphocytes 18.1 % 20.0 - 06/13 40.0 [facility] HEMATOLOGY Basophils 0.7 % 0.0 - 1.0 06/13 [facility] HEMATOLOGY Eosinophils 4.7 % 0.0 - 4.0 06/13 [facility] HEMATOLOGY Segs-Bands # 6.1 K/CMM 1.5 - 8.1 06/13 [facility] HEMATOLOGY Segs 67.5 % 45.0 - 06/13 75.0 [facility] TOXICOLOGY Vanco Tr TND 0900 06/12 [facility] TOXICOLOGY Vanco Tr 24.9 ug/ml 06/12 [facility] Chest Chest 1view EXAM: Chest 1view DX 06/12 - 1view DX DX /2016 - [facility] DATE: 06/12/2016 9:53 AM CDT INDICATION: PICC Line Placement - STAT portable Chest X-ray post successful insertion. Indication: Correct Line Placement. Read by: Joey Watson MD Dictated Date/time: 06/12/16 10:21 COMPARISON: 06/11/2016. Electronically Signed by: Joey Watson MD 06/12/16 10:33 FINAL REPORT IMPRESSION: New right PICC line is present with its tip near the atrial caval junction. Otherwise, stable chest. SL: [id number] CHEM PANEL eGFR 67 06/12 Result Comment: The eGFR is calculated using the CKD-EPI formula. In most young, healthy individuals the eGFR will be >90 mL/ min/1.73m2. The eGFR declines with age. An eGFR of 60-89 may be normal in mL/min/1.7 some populations, particularly the elderly, for whom the CKD-EPI formula has not been extensively validated. Use of the eGFR is not recommended in the following populations: [facility] 3m2 Individuals with unstable creatinine concentrations, including patients and those with serious co-morbid conditions. Patients with extremes in muscle mass or diet. The data above are obtained from the National Kidney Disease Education Program (NKDEP) which additionally recommends that when the eGFR is used in patients with extremes of body mass index for purposes of drug dosing, the eGFR should be multiplied by the estimated BMI. CHEM PANEL Sodium Lvl 139 meq/L 135 - 145 06/12 [facility] CHEM PANEL Creatinine 1.10 mg/dL 0.50 - 06/12 Lvl 1.40 [facility] CHEM PANEL BUN 11 mg/dL 7 - 22 06/12 [facility] CHEM PANEL Glucose Lvl 123 mg/dL 70 - 99 06/12 [facility] CHEM PANEL CO2 23 meq/L 24 - 32 06/12 [facility] CHEM PANEL Chloride Lvl 103 meq/L 95 - 109 06/12 [facility] CHEM PANEL Potassium 3.8 meq/L 3.5 - 5.1 06/12 Lvl [facility] CHEM PANEL Calcium Lvl 9.1 mg/dL 8.5 - 10.5 06/12 [facility] CHEM PANEL AGAP 16.8 meq/L 10.0 - 06/12 MH 20.0 /2016 [facility] HEMATOLOGY Monocytes # 0.8 K/CMM 0.0 - 0.8 04 /2016 [facility] HEMATOLOGY Lymphocytes 1.8 K/CMM 1.0 - 5.5 04/ MH # /2016 [facility] HEMATOLOGY Eosinophils 0.5 K/CMM 0.0 - 0.5 06/12 MH # /2016 [facility] HEMATOLOGY Basophils # 0.1 K/CMM 0.0 - 0.2 06/12 /2016 [facility] HEMATOLOGY Basophils 0.7 % 0.0 - 1.0 06/12 /2016 [facility] HEMATOLOGY Segs-Bands # 5.5 K/CMM 1.5 - 8.1 06/12 [facility] HEMATOLOGY Segs 62.6 % 45.0 - 06/12 MH 75.0 /2016 [facility] HEMATOLOGY Lymphocytes 21.2 % 20.0 - 06/12 MH 40.0 /2016 [facility] HEMATOLOGY Monocytes 9.7 % 2.0 - 12.0 06/12 /2016 [facility] HEMATOLOGY Eosinophils 5.8 % 0.0 - 4.0 06/12 /2016 [facility] HEMATOLOGY Hct 35.2 % 42.0 - 06/12 MH 54.0 /2016 [facility] HEMATOLOGY MCV 82.9 fL 80.0 - 06/12 94.0 [facility] HEMATOLOGY MCHC 34.0 g/dL 32.0 - 06/12 MH 36.0 /2016 [facility] HEMATOLOGY MCH 28.2 pg 27.0 - 06/12 MH 31.0 /2016 [facility] HEMATOLOGY Platelet 415 K/CMM 133 - 450 06/12 /2016 [facility] HEMATOLOGY RDW 13.8 % 11.5 - 06/12 MH 14.5 [facility] HEMATOLOGY MPV 6.9 fL 7.4 - 10.4 06/12 /2016 [facility] HEMATOLOGY WBC 8.7 K/CMM 3.7 - 10.4 06/12 [facility] HEMATOLOGY RBC 4.25 M/CMM 4.70 - 06/12 MH 6.10 [facility] HEMATOLOGY Hgb 12.0 g/dL 14.0 - 06/12 MH 18.0 /2016 [facility] BLOOD BANK ABO/Rh B POS 06/11 RESULTS /2016 [facility] BLOOD BANK Antibody Negative 06/11 RESULTS Scr /2016 [facility] (06/11/16 1:18 PM) CHEM PANEL eGFR 55 06/11 Result Comment: The eGFR is calculated using the CKD-EPI formula. In most young, healthy individuals the eGFR will be >90 mL/ min/1.73m2. The eGFR declines with age. An eGFR of 60-89 may be normal in mL/min/1.7 /2016 some populations, particularly the elderly, for whom the CKD-EPI formula has not been extensively validated. Use of the eGFR is not recommended in the following populations: [facility] 3m2 Individuals with unstable creatinine concentrations, including patients and those with serious co-morbid conditions. Patients with extremes in muscle mass or diet. The data above are obtained from the National Kidney Disease Education Program (NKDEP) which additionally recommends that when the eGFR is used in patients with extremes of body mass index for purposes of drug dosing, the eGFR should be multiplied by the estimated BMI. CHEM PANEL CO2 29 meq/L 24 - 32 06/11 [facility] CHEM PANEL Calcium Lvl 8.9 mg/dL 8.5 - 10.5 06/11 [facility] CHEM PANEL Creatinine 1.30 mg/dL 0.50 - 06/11 Lvl 1.40 [facility] CHEM PANEL Sodium Lvl 141 meq/L 135 - 145 06/11 [facility] CHEM PANEL Chloride Lvl 102 meq/L 95 - 109 06/11 [facility] CHEM PANEL Potassium 4.6 meq/L 3.5 - 5.1 06/11 Lvl /2016 [facility] CHEM PANEL Glucose Lvl 155 mg/dL 70 - 99 06/11 [facility] CHEM PANEL BUN 12 mg/dL 7 - 22 06/11 [facility] CHEM PANEL AGAP 14.6 meq/L 10.0 - 06/11 20.0 [facility] HEMATOLOGY INR 1.17 0.85 - 06/11 1.17 /2016 [facility] HEMATOLOGY PT 15.1 s 12.0 - 06/11 14.7 [facility] HEMATOLOGY PTT 40.5 s 22.9 - 06/11 35.8 /2017 [facility] HEMATOLOGY RBC X 10x6 4.12 M/CMM 4.70 - 04 MH 6.10 [facility] HEMATOLOGY MPV 7.0 fL 7.4 - 10.4 06/11 [facility] HEMATOLOGY Platelet 405 K/CMM 133 - 450 06/11 [facility] HEMATOLOGY Hct 34.2 % 42.0 - 06/11 54.0 /2016 [facility] HEMATOLOGY MCV 83.0 fL 80.0 - 06/11 94.0 /2016 [facility] HEMATOLOGY Hgb 11.7 g/dL 14.0 - 06/11 18.0 /2016 [facility] HEMATOLOGY MCHC 34.2 g/dL 32.0 - 06/11 MH 36.0 /2016 [facility] MCH 28.4 pg 27.0 - 06/11 31.0 /2016 [facility] HEMATOLOGY RDW 13.8 % 11.5 - 06/11 14.5 /2016 [facility] HEMATOLOGY WBC X 10x3 9.1 K/CMM 3.7 - 10.4 06/11 [facility] HEMATOLOGY Basophils 0.9 % 0.0 - 1.0 06/11 [facility] HEMATOLOGY Monocytes # 0.9 K/CMM 0.0 - 0.8 06/11 [facility] HEMATOLOGY Lymphocytes 20.2 % 20.0 - 06/11 40.0 /2016 [facility] HEMATOLOGY Segs-Bands # 5.8 K/CMM 1.5 - 8.1 06/11 [facility] HEMATOLOGY Lymphocytes 1.8 K/CMM 1.0 - 5.5 06/11 MH # /2016 [facility] HEMATOLOGY Monocytes 10.2 % 2.0 - 12.0 06/11 [facility] HEMATOLOGY Eosinophils 4.7 % 0.0 - 4.0 06/11 [facility] HEMATOLOGY Segs 64.0 % 45.0 - 06/11 75.0 /2016 [facility] HEMATOLOGY Eosinophils 0.4 K/CMM 0.0 - 0.5 06/11 [facility] HEMATOLOGY Basophils # 0.1 K/CMM 0.0 - 0.2 06/11 [facility] Chest 2 Chest 2 Study: Frontal chest x-ray compared to 01/25/2015. 06/11 - views DX views DX /2016 - [facility] History: Abnormal breath sounds Read by: Lyly Carrasco MD Dictated Date/time: 06/11/16 18:25 Electronically Signed by: Lyly Carrasco MD 06/12/16 02:47 FINAL REPORT Comments: The trachea is midline. The cardiomediastinal silhouette is normal in size. No pneumonia. No pleural effusions or pneumothorax. Impression: No acute cardiopulmonary disease. TOXICOLOGY Vanco Tr TND 2030 06/11 [facility] TOXICOLOGY Vanco Tr 19.5 ug/ml 06/11 [facility] CHEM PANEL Magnesium 2.2 mg/dL 1.8 - 2.4 06/10 Lvl /2016 [facility] CHEM PANEL Phosphorus 3.0 mg/dL 2.5 - 4.5 06/10 [facility] CHEM PANEL B/C Ratio 12 6 - 25 06/10 [facility] CHEM PANEL Globulin 5.0 g/dL 2.7 - 4.2 06/10 [facility] CHEM PANEL A/G Ratio 0.5 0.7 - 1.6 06/10 [facility] CHEM PANEL Bili Total 0.9 mg/dL 0.2 - 1.3 06/10 [facility] CHEM PANEL AST 29 unit/L 0 - 37 06/10 [facility] CHEM PANEL Alk Phos 61 unit/L 39 - 136 06/10 [facility] CHEM PANEL Albumin Lvl 2.5 g/dL 3.5 - 5.0 06/10 [facility] CHEM PANEL ALT 25 unit/L 0 - 65 06/10 [facility] CHEM PANEL Total 7.5 g/dL 6.4 - 8.4 06/10 [facility] Ext Lower Ext Lower ARTERIAL DOPPLER RIGHT LOWER EXTREMITY: 06/10 - Arterial Arterial /2016 - [facility] Doppler Doppler unilat US unilat US HISTORY: Right foot ulcers. Read by: Jacobo Ivory MD Dictated Date/time: 06/10/16 06:58 Electronically Signed by: Jacobo Ivory MD 06/10/16 07:03 FINAL REPORT TECHNIQUE: Triplex evaluation of the right femoropopliteal segment and distal runoff at the ankle was done. FINDINGS: Moderate atherosclerotic plaque in the femoropopliteal segment is demonstrated. Triphasic waveforms are demonstrated in the proximal femoropopliteal segment, becoming monophasic in the lower femoral popliteal segment. Monophasic waveforms in the proximal posterior tibial and perone al arteries are demonstrated. The distal runoff vessels at the ankle were not evaluated due to bandages. The following peak systolic velocity measurements were obtained: Common femoral: 136 cm/s Proximal superficial femoral: 114 cm/s Mid superficial femoral: 134 cm/s Distal superficial femoral: 150 cm/s Popliteal: 78 cm/s Proximal posterior tibial: 182 cm/s Proximal peroneal: 127 cm/s IMPRESSION: Atherosclerotic changes in the femoropopliteal segment with moderate flow restriction in the the distal femoropopliteal segment. [facility] Hgb A1C 8.1 % <=5.6 % 06/09 CHEMISTRY /2016 [facility] HEMATOLOGY Sed Rate 67 mm/h 0 - 15 06/09 [facility] IMMUNOLOGY C-REACTIVE 181.0 mg/L <=2.9 mg/L 06/09 PROTEIN [facility] CHEM PANEL Lactic Acid 2.6 mMol/L 0.5 - 2.2 06/09 Lvl [facility] Foot Foot series Right foot 3 views: There is cortical destruction of the lateral base of the 5th metatarsal with adjacent soft tissue swelling and gas, consistent with acute osteomyelitis. The distal cuboid may also be 06/08 - series DX DX involved, but this is less definite. These findings were not present on the previous right foot radiographs on 04/29/2007. There is no other evidence of osteomyelitis. Bunion formation of the distal [facility] t metatarsal is again noted without significant change. There are no other significant osseous or articular abnormalities. Read by: Jacobo Ivory MD Dictated Date/time: 06/08/16 22:35 [id number] Electronically Signed by: Jacobo Ivory MD 06/08/16 22:37 FINAL REPORT CHEM PANEL A/G Ratio 1.1 0.7 - 1.6 05/10 [facility] CHEM PANEL Globulin 3.9 g/dL 2.7 - 4.2 05/10 [facility] CHEM PANEL B/C Ratio 17 6 - 25 05/10 [facility] CHEM PANEL AGAP 13.9 meq/L 10.0 - 05/10 20.0 [facility] CHEM PANEL eGFR 75 05/10 Result Comment: The eGFR is calculated using the CKD-EPI formula. In most young, healthy individuals the eGFR will be >90 mL/ min/1.73m2. The eGFR declines with age. An eGFR of 60-89 may be normal in mL/min/1.7 /2016 some populations, particularly the elderly, for whom the CKD-EPI formula has not been extensively validated. Use of the eGFR is not recommended in the following populations: [facility] 3m2 Individuals with unstable creatinine concentrations, including patients and those with serious co-morbid conditions. Patients with extremes in muscle mass or diet. The data above are obtained from the National Kidney Disease Education Program (NKDEP) which additionally recommends that when the eGFR is used in patients with extremes of body mass index for purposes of drug dosing, the eGFR should be multiplied by the estimated BMI. CHEM PANEL Albumin Lvl 4.2 g/dL 3.5 - 5.0 05/10 [facility] CHEM PANEL Total 8.1 g/dL 6.4 - 8.4 05/10 [facility] CHEM PANEL Calcium Lvl 9.2 mg/dL 8.5 - 10.5 05/10 [facility] CHEM PANEL AST 24 unit/L 0 - 37 05/10 [facility] CHEM PANEL ALT 39 unit/L 0 - 65 05/10 [facility] CHEM PANEL Bili Total 0.7 mg/dL 0.2 - 1.3 05/10 [facility] CHEM PANEL Alk Phos 68 unit/L 39 - 136 05/10 [facility] CHEM PANEL BUN 17 mg/dL 7 - 22 05/10 [facility] CHEM PANEL Creatinine 1.00 mg/dL 0.50 - 05/10 Lvl 1.40 [facility] CHEM PANEL Sodium Lvl 138 meq/L 135 - 145 05/10 [facility] CHEM PANEL Glucose Lvl 171 mg/dL 70 - 99 05/10 [facility] CHEM PANEL Chloride Lvl 101 meq/L 95 - 109 05/10 [facility] CHEM PANEL Potassium 3.9 meq/L 3.5 - 5.1 05/10 Lvl /2016 [facility] CHEM PANEL CO2 27 meq/L 24 - 32 05/10 [facility] HEMATOLOGY RDW 14.0 % 11.5 - 05/10 14. [facility] HEMATOLOGY MCHC 33.6 g/dL 32.0 - 05/10 36.0 [facility] HEMATOLOGY MCH 28.1 pg 27.0 - 05/10 MH 31.0 [facility] HEMATOLOGY MCV 83.5 fL 80.0 - 05/10 94.0 [facility] HEMATOLOGY Platelet 310 K/CMM 133 - 450 05/10 [facility] HEMATOLOGY MPV 7.6 fL 7.4 - 10.4 05/10 [facility] HEMATOLOGY WBC 8.2 K/CMM 3.7 - 10.4 05/10 [facility] HEMATOLOGY RBC 5.23 M/CMM 4.70 - 05/10 MH 6.10 /2016 [facility] HEMATOLOGY Hct 43.7 % 42.0 - / MH 54.0 /2017 [facility] HEMATOLOGY Hgb 14.7 g/dL 14.0 - / MH 18.0 /2016 [facility] HEMATOLOGY Lymphocytes 2.7 K/CMM 1.0 - 5.5 03/ MH # /2017 [facility] HEMATOLOGY Segs-Bands # 4.4 K/CMM 1.5 - 8.1 / /2016 [facility] HEMATOLOGY Basophils 1.2 % 0.0 - 1.0 03/ /2016 [facility] HEMATOLOGY Eosinophils 0.2 K/CMM 0.0 - 0.5 03/ MH # /2017 [facility] HEMATOLOGY Monocytes # 0.9 K/CMM 0.0 - 0.8 / /2016 [facility] HEMATOLOGY Segs 53.3 % 45.0 - / MH 75.0 /2017 [facility] Eosinophils 2.1 % 0.0 - 4.0 / /2016 [facility] Lymphocytes 33.0 % 20.0 - 03 MH 40.0 /2016 [facility] HEMATOLOGY Monocytes 10.4 % 2.0 - 12.0 / /2016 [facility] Basophils # 0.1 K/CMM 0.0 - 0.2 / /2016 [facility] Chest Chest 1view Portable chest: The PICC line tip is in good position in the lower SVC. The cardiac silhouette is normal in size. The lungs and pleural spaces are clear. There is no other significant change compared to 07/08/2012. 01/25 - 1view DX DX [facility] SL:13 Read by: Jacobo Ivory MD Dictated Date/time: 01/25/15 15:31 Electronically Signed by: Jacobo Ivory MD 01/25/15 15:31 FINAL REPORT HEMATOLOGY INR 1.05 0.85 - 01/25 1.17 [facility] HEMATOLOGY PT 14.0 s 12.0 - 01/25 14.7 [facility] CHEM PANEL eGFR 66 01/24 Result Comment: The eGFR is calculated using the CKD-EPI formula. In most young, healthy individuals the eGFR will be >90 mL/ min/1.73m2. The eGFR declines with age. An eGFR of 60-89 may be normal in mL/min/1. some populations, particularly the elderly, for whom the CKD-EPI formula has not been extensively validated. Use of the eGFR is not recommended in the following populations: [facility] 3m2 Individuals with unstable creatinine concentrations, including patients and those with serious co-morbid conditions. Patients with extremes in muscle mass or diet. The data above are obtained from the National Kidney Disease Education Program (NKDEP) which additionally recommends that when the eGFR is used in patients with extremes of body mass index for purposes of drug dosing, the eGFR should be multiplied by the estimated BMI. CHEM PANEL Potassium 3.9 meq/L 3.5 - 5.1 01/24 MH Lvl /2014 [facility] CHEM PANEL Chloride Lvl 101 meq/L 95 - 109 01/24 [facility] CHEM PANEL Calcium Lvl 8.3 mg/dL 8.5 - 10.5 01/24 [facility] CHEM PANEL CO2 26 meq/L 24 - 32 01/24 [facility] CHEM PANEL Albumin Lvl 3.2 g/dL 3.5 - 5.0 01/24 [facility] CHEM PANEL ALT 112 unit/L 0 - 65 01/24 [facility] CHEM PANEL Total 7.5 g/dL 6.4 - 8.4 01/24 [facility] CHEM PANEL Alk Phos 106 unit/L 39 - 136 01/24 [facility] CHEM PANEL AST 81 unit/L 0 - 37 01/24 [facility] CHEM PANEL Bili Total 1.3 mg/dL 0.2 - 1.3 01/24 [facility] CHEM PANEL Glucose Lvl 132 mg/dL 70 - 99 01/24 [facility] CHEM PANEL Creatinine 1.12 mg/dL 0.50 - 01/24 MH Lvl 1.40 [facility] CHEM PANEL BUN 11 mg/dL 7 - 22 01/24 [facility] CHEM PANEL Sodium Lvl 137 meq/L 135 - 145 01/24 [facility] CHEM PANEL A/G Ratio 0.7 0.7 - 1.6 01/24 [facility] CHEM PANEL Globulin 4.3 g/dL 2.0 - 4.0 01/24 [facility] CHEM PANEL B/C Ratio 10 6 - 25 01/24 [facility] CHEM PANEL AGAP 13.9 meq/L 10.0 - 01/24 MH 20.0 /2014 [facility] HEMATOLOGY Monocytes # 0.9 K/CMM 0.0 - 0.8 01/24 [facility] HEMATOLOGY Eosinophils 0.3 K/CMM 0.0 - 0.5 01/24 MH # /2015 [facility] HEMATOLOGY Segs-Bands # 5.1 K/CMM 1.5 - 8.1 01/24 [facility] HEMATOLOGY Lymphocytes 2.7 K/CMM 1.0 - 5.5 01/24 MH # /2014 [facility] HEMATOLOGY Basophils 0.8 % 0.0 - 1.0 01/24 [facility] HEMATOLOGY Basophils # 0.1 K/CMM 0.0 - 0.2 01/24 [facility] HEMATOLOGY Eosinophils 3.2 % 0.0 - 4.0 01/24 [facility] HEMATOLOGY Lymphocytes 29.5 % 20.0 - 01/24 40.0 /2014 [facility] HEMATOLOGY Segs 56.5 % 45.0 - 01/24 75.0 /2014 [facility] HEMATOLOGY Monocytes 10.0 % 2.0 - 12.0 01/24 [facility] HEMATOLOGY MPV 7.0 fL 7.4 - 10.4 01/24 [facility] HEMATOLOGY Hct 44.0 % 42.0 - 01/24 54.0 /2014 [facility] HEMATOLOGY RBC 5.13 M/CMM 4.70 - 01/24 6.10 [facility] HEMATOLOGY Platelet 337 K/CMM 133 - 450 01/24 [facility] HEMATOLOGY MCHC 33.5 g/dL 32.0 - 01/24 36.0 [facility] HEMATOLOGY Hgb 14.7 g/dL 14.0 - 01/24 18.0 [facility] HEMATOLOGY WBC 9.0 K/CMM 3.7 - 10.4 01/24 [facility] HEMATOLOGY MCV 85.7 fL 80.0 - 01/24 94.0 [facility] HEMATOLOGY RDW 13.4 % 11.5 - 01/24 14.5 [facility] HEMATOLOGY MCH 28.7 pg 27.0 - 01/24 31.0 [facility] TOXICOLOGY Vanco Lvl 2.3 ug/ml 01/24 [facility] CHEM PANEL eGFR 73 01/22 Result Comment: The eGFR is calculated using the CKD-EPI formula. In most young, healthy individuals the eGFR will be >90 mL/ min/1.73m2. The eGFR declines with age. An eGFR of 60-89 may be normal in MH mL/min/1.7 some populations, particularly the elderly, for whom the CKD-EPI formula has not been extensively validated. Use of the eGFR is not recommended in the following populations: [facility] 3m2 Individuals with unstable creatinine concentrations, including patients and those with serious co-morbid conditions. Patients with extremes in muscle mass or diet. The data above are obtained from the National Kidney Disease Education Program (NKDEP) which additionally recommends that when the eGFR is used in patients with extremes of body mass index for purposes of drug dosing, the eGFR should be multiplied by the estimated BMI. CHEM PANEL Bili Total 1.2 mg/dL 0.2 - 1.3 01/22 [facility] CHEM PANEL Total 7.4 g/dL 6.4 - 8.4 01/22 [facility] CHEM PANEL Albumin Lvl 3.2 g/dL 3.5 - 5.0 01/22 [facility] CHEM PANEL ALT 53 unit/L 0 - 65 01/22 [facility] CHEM PANEL AST 38 unit/L 0 - 37 01/22 [facility] CHEM PANEL Alk Phos 93 unit/L 39 - 136 01/22 [facility] CHEM PANEL Calcium Lvl 9.1 mg/dL 8.5 - 10.5 01/22 [facility] CHEM PANEL Sodium Lvl 138 meq/L 135 - 145 01/22 [facility] CHEM PANEL Chloride Lvl 102 meq/L 95 - 109 01/22 [facility] CHEM PANEL CO2 24 meq/L 24 - 32 01/22 [facility] CHEM PANEL Potassium 4.3 meq/L 3.5 - 5.1 01/22 Lvl [facility] CHEM PANEL Creatinine 1.03 mg/dL 0.50 - 01/22 Lvl 1.40 [facility] CHEM PANEL BUN 10 mg/dL 7 - 22 01/22 [facility] CHEM PANEL Glucose Lvl 125 mg/dL 70 - 99 01/22 [facility] CHEM PANEL AGAP 16.3 meq/L 10.0 - 11 MH 20.0 [facility] CHEM PANEL B/C Ratio 10 6 - 25 01/22 [facility] CHEM PANEL Globulin 4.2 g/dL 2.0 - 4.0 01/22 [facility] CHEM PANEL A/G Ratio 0.8 0.7 - 1.6 01/22 [facility] HEMATOLOGY WBC 9.8 K/CMM 3.7 - 10.4 01/22 /2014 [facility] HEMATOLOGY RBC 4.79 M/CMM 4.70 - 01/22 MH 6.10 /2014 [facility] HEMATOLOGY Hgb 13.4 g/dL 14.0 - 01/22 MH 18.0 /2014 [facility] HEMATOLOGY MCV 85.7 fL 80.0 - 01/22 MH 94.0 /2014 [facility] HEMATOLOGY Hct 41.1 % 42.0 - 01/22 MH 54.0 /2014 [facility] HEMATOLOGY MCH 27.9 pg 27.0 - 01/22 MH 31.0 /2014 [facility] HEMATOLOGY RDW 13.3 % 11.5 - 01/22 MH 14.5 [facility] HEMATOLOGY MCHC 32.6 g/dL 32.0 - 01/22 MH 36.0 /2014 [facility] HEMATOLOGY MPV 7.8 fL 7.4 - 10.4 01/22 [facility] HEMATOLOGY Platelet 297 K/CMM 133 - 450 01/22 [facility] HEMATOLOGY Segs 57.8 % 45.0 - 01/22 75.0 /2014 [facility] HEMATOLOGY Lymphocytes 27.7 % 20.0 - 01/22 40.0 /2014 [facility] HEMATOLOGY Basophils 1.3 % 0.0 - 1.0 01/22 [facility] HEMATOLOGY Monocytes 9.7 % 2.0 - 12.0 01/22 [facility] HEMATOLOGY Eosinophils 3.5 % 0.0 - 4.0 01/22 [facility] HEMATOLOGY Eosinophils 0.3 K/CMM 0.0 - 0.5 01/22 MH # /2015 [facility] HEMATOLOGY Basophils # 0.1 K/CMM 0.0 - 0.2 01/22 [facility] HEMATOLOGY Segs-Bands # 5.7 K/CMM 1.5 - 8.1 01/22 [facility] HEMATOLOGY Lymphocytes 2.7 K/CMM 1.0 - 5.5 01/22 # /2014 [facility] HEMATOLOGY Monocytes # 0.9 K/CMM 0.0 - 0.8 01/22 [facility] TOXICOLOGY Vanco Tr 21.2 ug/ml 01/21 [facility] TOXICOLOGY Vanco Tr TND 1130 01/21 [facility] Foot Foot series Left foot, 3 views: 01/21 - series DX - [facility] Exam reason: Erythema. Read by: Kar Owens MD Dictated Date/time: 01/21/15 17:30 Electronically Signed by: Kar Owens MD 01/21/15 17:31 FINAL REPORT Comparison is made to the previous exam, 01/18/2015. Interval amputation of the left fifth toe is noted. Postoperative changes are noted at the amputation flap. Exam is otherwise unchanged from the previous study, 2014. SL:12 HEMATOLOGY Sed Rate >100 mm/hr 0 - 15 01/19 [facility] IMMUNOLOGY C-REACTIVE 164.0 mg/L <=2.9 mg/L 01/19 [facility] Foot w/wo Foot w/wo Examination: MRI of the left foot with and without contrast 01/18 - contrast contrast MRI /2014 - [facility] MRI History: Erythema Read by: Todd Doss MD Dictated Date/time: 01/19/15 08:05 Electronically Signed by: Todd Doss MD 01/19/15 08:17 FINAL REPORT Left foot pain Comparison: Plain films of the left foot from 01/18/2015. TECHNIQUE: Multiplanar, multisequence magnetic resonance imaging of the left forefoot was performed with and without administration of intravenous gadolinium contrast. Findings: Extensive circumferential soft tissue inflammatory signal and enhancement throughout the soft tissues of the fifth toe is seen extending along the dorsal soft tissues of the forefoot. There is hypointense T1/hyperintense STIR signal abnormality and enhancement in the head of the proximal phalanx of the fifth toe without discrete osseous erosion. Remote postoperative changes of amputation through the second metatarsal head are seen. Chronic healed fracture of the third metatarsal head is seen. 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 Scattered mild midfoot osteoarthritic changes are seen. The visualized plantar fascia is intact. Severe atrophy of the forefoot musculature is seen. No rim-enhancing fluid collection is seen. IMPRESSION: 1. Signal abnormality and enhancement of the head of the proximal phalanx of the fifth toe, suspicious for osteomyelitis. There is surrounding soft tissue inflammatory signal and enhancement throughout the fifth toe extending along the dorsum of the foot, compatible with cellulitis. 2. No rim-enhancing fluid collection to suggest abscess. SL: 16 TOXICOLOGY Vanco Lvl 2.8 ug/ml 01/18 /2014 [facility] HEMATOLOGY Monocytes 11.9 % 2.0 - 12.0 01/18 /2014 [facility] HEMATOLOGY Eosinophils 0.6 % 0.0 - 4.0 01/18 /2014 [facility] HEMATOLOGY Segs 70.2 % 45.0 - 01/18 MH 75.0 /2014 [facility] HEMATOLOGY Lymphocytes 16.0 % 20.0 - 01/18 MH 40.0 /2014 [facility] HEMATOLOGY Monocytes # 1.7 K/CMM 0.0 - 0.8 01/18 /2014 [facility] HEMATOLOGY Segs-Bands # 10.3 K/CMM 1.5 - 8.1 01/18 /2014 [facility] HEMATOLOGY Lymphocytes 2.4 K/CMM 1.0 - 5.5 01/18 MH # /2014 [facility] HEMATOLOGY Basophils 1.3 % 0.0 - 1.0 01/18 /2014 [facility] HEMATOLOGY Basophils # 0.2 K/CMM 0.0 - 0.2 01/18 /2014 [facility] HEMATOLOGY Eosinophils 0.1 K/CMM 0.0 - 0.5 01/18 MH # /2014 [facility] HEMATOLOGY MPV 7.5 fL 7.4 - 10.4 01/18 /2014 [facility] HEMATOLOGY MCH 28.8 pg 27.0 - 01/18 31.0 /2014 [facility] HEMATOLOGY MCHC 33.3 g/dL 32.0 - 01/18 36.0 /2014 [facility] HEMATOLOGY Platelet 214 K/CMM 133 - 450 01/18 /2014 [facility] HEMATOLOGY RDW 13.8 % 11.5 - 01/18 14.5 /2014 [facility] HEMATOLOGY MCV 86.4 fL 80.0 - 01/18 94.0 /2014 [facility] HEMATOLOGY Hct 40.1 % 42.0 - 01/18 54.0 /2014 [facility] HEMATOLOGY RBC 4.64 M/CMM 4.70 - 01/18 MH 6.10 [facility] HEMATOLOGY Hgb 13.3 g/dL 14.0 - 01/18 18.0 [facility] HEMATOLOGY WBC 14.7 K/CMM 3.7 - 10.4 01/18 /2014 [facility] Foot Foot series Examination: Left foot, 3 views 01/18 - series DX /2014 - History: Erythema , left foot pain Read by: Todd Doss MD Dictated Date/time: 01/18/15 12:14 Electronically Signed by: Todd Doss MD 01/18/15 12:16 FINAL REPORT Comparison: 10/20/2014 Findings: Multiple views of the left foot show stable postoperative changes of amputation through the second metatarsal neck. Chronic osseous remodeling flattening of the third metatarsal head is stable , may represent chronic subchondral fracture. 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 No osseous erosions are identified. Os trigonum is seen. Ossifications in the region of the plan tar fascia are seen. Dorsal forefoot soft tissue swelling is present. No soft tissue gas is seen. IMPRESSION: 1. Stable posttraumatic/postsurgical changes of the left forefoot without acute bony abnormality. 2. 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 SL: 16 CHEM PANEL Lactic Acid 2.6 mMol/L 0.5 - 2.2 01/17 Lvl [facility] CHEM PANEL ALT 38 unit/L 0 - 65 01/17 [facility] CHEM PANEL Bili Total 1.5 mg/dL 0.2 - 1.3 01/17 [facility] CHEM PANEL AST 15 unit/L 0 - 37 01/17 [facility] CHEM PANEL eGFR 80 01/17 Result Comment: The eGFR is calculated using the CKD-EPI formula. In most young, healthy individuals the eGFR will be >90 mL/ min/1.73m2. The eGFR declines with age. An eGFR of 60-89 may be normal in mL/min/1.7 some populations, particularly the elderly, for whom the CKD-EPI formula has not been extensively validated. Use of the eGFR is not recommended in the following populations: [facility] 3m2 Individuals with unstable creatinine concentrations, including patients and those with serious co-morbid conditions. Patients with extremes in muscle mass or diet. The data above are obtained from the National Kidney Disease Education Program (NKDEP) which additionally recommends that when the eGFR is used in patients with extremes of body mass index for purposes of drug dosing, the eGFR should be multiplied by the estimated BMI. CHEM PANEL Alk Phos 74 unit/L 39 - 136 01/17 [facility] CHEM PANEL BUN 11 mg/dL 7 - 22 01/17 [facility] CHEM PANEL Glucose Lvl 185 mg/dL 70 - 99 01/17 [facility] CHEM PANEL Albumin Lvl 3.8 g/dL 3.5 - 5.0 01/17 [facility] CHEM PANEL Total 8.5 g/dL 6.4 - 8.4 01/17 Protein [facility] CHEM PANEL Calcium Lvl 9.1 mg/dL 8.5 - 10.5 01/17 [facility] CHEM PANEL Sodium Lvl 132 meq/L 135 - 145 01/17 [facility] CHEM PANEL CO2 26 meq/L 24 - 32 01/17 [facility] CHEM PANEL Potassium 3.7 meq/L 3.5 - 5.1 01/17 Lvl /2014 [facility] CHEM PANEL Chloride Lvl 96 meq/L 95 - 109 01/17 [facility] CHEM PANEL Creatinine 0.96 mg/dL 0.50 - 01/17 Lvl 1.40 [facility] CHEM PANEL AGAP 13.7 meq/L 10.0 - 01/17 20.0 [facility] CHEM PANEL B/C Ratio 11 6 - 25 01/17 [facility] CHEM PANEL A/G Ratio 0.8 0.7 - 1.6 01/17 [facility] CHEM PANEL Globulin 4.7 g/dL 2.0 - 4.0 01/17 [facility] SPECIAL Hgb A1C 7.5 % <=5.6 % 01/17 CHEMISTRY /2014 [facility] Ext Lower Ext Lower BILATERAL LOWER EXTREMITY VENOUS DOPPLER 01/17 - Venous Venous /2014 - [facility] Doppler Doppler Bilat US Bilat US HISTORY: Bilateral lower extremity pain, cellulitis. Read by: Angel Melo MD Dictated Date/time: 01/17/15 16:21 Electronically Signed by: Angel Melo MD 01/17/15 16:23 FINAL REPORT COMMENT: The deep venous system of the lower extremities was interrogated from inguinal ligament to the popliteal fossae utilizing high-resolution duplex sonography (Color-flow and spectral Doppler). FINDINGS: The deep veins are readily visualized and easily compressible. There is normal spontaneous, phasic flow by Doppler with augmentation of flow with calf compression. This constitutes a negative exam. CONCLUSION: 1. Negative bilateral lower extremity venous Doppler. SL: 16 Angel Melo M.D. Forearm 2 Forearm 2 RIGHT FOREARM RADIOGRAPH 2 VIEW 10/25 - views DX views - [facility] INDICATION: Nontraumatic right forearm pain and swelling Read by: Reinier Elliott MD Dictated Date/time: 10/25/14 09:03 Electronically Signed by: Reinier Elliott MD 10/25/14 09:05 FINAL REPORT COMPARISON: None IMPRESSION: A few vascular calcifications are noted. The soft tissues are otherwise radiographically unremarkable. There is degenerative arthrosis at the wrist and elbow. No acute bony abnormalities are visualized. SL: HEMATOLOGY Platelet 369 K/CMM 133 - 450 10/24 [facility] HEMATOLOGY MPV 6.9 fL 7.4 - 10.4 10/24 [facility] HEMATOLOGY RDW 13.4 % 11.5 - 10/24 MH 14.5 /2014 [facility] MCH 29.8 pg 27.0 - 10/24 MH 31.0 /2014 [facility] HEMATOLOGY MCHC 34.5 g/dL 32.0 - 10/24 MH 36.0 /2014 [facility] MCV 86.4 fL 80.0 - 10/24 MH 94.0 /2014 [facility] HEMATOLOGY Hct 43.6 % 42.0 - 10/24 MH 54.0 /2014 [facility] HEMATOLOGY Hgb 15.0 g/dL 14.0 - 10/24 MH 18.0 /2014 [facility] HEMATOLOGY RBC 5.04 M/CMM 4.70 - 10/24 MH 6.10 /2014 [facility] HEMATOLOGY WBC 11.5 K/CMM 3.7 - 10.4 10/24 [facility] HEMATOLOGY Basophils # 0.1 K/CMM 0.0 - 0.2 10/24 [facility] HEMATOLOGY Eosinophils 0.5 K/CMM 0.0 - 0.5 10/24 MH # /2014 [facility] HEMATOLOGY Monocytes # 1.1 K/CMM 0.0 - 0.8 10/24 [facility] HEMATOLOGY Lymphocytes 3.1 K/CMM 1.0 - 5.5 10/24 MH # /2014 [facility] HEMATOLOGY Segs-Bands # 6.7 K/CMM 1.5 - 8.1 10/24 [facility] HEMATOLOGY Monocytes 9.4 % 2.0 - 12.0 10/24 /2014 [facility] HEMATOLOGY Basophils 1.1 % 0.0 - 1.0 10/24 [facility] HEMATOLOGY Eosinophils 4.1 % 0.0 - 4.0 10/24 [facility] HEMATOLOGY Lymphocytes 27.2 % 20.0 - 10/24 MH 40.0 /2014 [facility] HEMATOLOGY Segs 58.2 % 45.0 - 10/24 MH 75.0 /2014 [facility] Foot wo Foot wo 10/22 - contrast contrast MRI /2014 - [facility] MRI EXAM: MRI left foot HISTORY: Erythema left foot. Read by: David Phillips MD Dictated Date/time: 10/22/14 04:06 COMPARISON: MRI 07/09/2012 and radiographs 10/20/2014. Electronically Signed by: David Phillips MD 10/22/14 04 :13 FINAL REPORT TECHNIQUE: Multiplanar images of the left foot obtained utilizing relative T1 and T2-weighting without contrast. FINDINGS: Soft tissue swelling distal phalanx great toe. No abscess or appreciable osteomyelitis. Amputation left second toe. 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 Moderate osteoarthritis first metatarsophalangeal joint. Degenerative subchondral cysts in the midfoot. Mild edema of the deep soft tissues of the forefoot. SL: 12 CHEM PANEL eGFR 76 10/21 Result Comment: The eGFR is calculated using the CKD-EPI formula. In most young, healthy individuals the eGFR will be >90 mL/ min/1.73m2. The eGFR declines with age. An eGFR of 60-89 may be normal in mL/min/1.7 /2014 some populations, particularly the elderly, for whom the CKD-EPI formula has not been extensively validated. Use of the eGFR is not recommended in the following populations: [facility] 3m2 Individuals with unstable creatinine concentrations, including patients and those with serious co-morbid conditions. Patients with extremes in muscle mass or diet. The data above are obtained from the National Kidney Disease Education Program (NKDEP) which additionally recommends that when the eGFR is used in patients with extremes of body mass index for purposes of drug dosing, the eGFR should be multiplied by the estimated BMI. CHEM PANEL Creatinine 1.0 mg/dL 0.5 - 1.4 10/21 Lvl [facility] HEMATOLOGY Platelet 259 K/CMM 133 - 450 10/21 [facility] HEMATOLOGY PTT 32.8 s 22.9 - 10/21 MH 35.8 /2014 [facility] URINE AND UA <=1.0 0.1 - 1.0 10/21 STOOL Urobilinogen mg/dL /2014 [facility] URINE AND UA Sq Epi None Seen 10/21 STOOL [facility] URINE AND UA RBC null 0 - 2 10/21 [facility] URINE AND UA Glucose 150 mg/dL Negative 10/21 STOOL mg/dL [facility] URINE AND UA Protein Negative Negative 10/21 STOOL mg/dL mg/dL [facility] URINE AND UA pH 6.0 5.0 - 8.0 10/21 [facility] URINE AND UA Turbidity Clear Clear 10/21 [facility] (10/20/14 11:59 PM) URINE AND UA Spec Grav 1.017 <=1.030 10/21 [facility] URINE AND UA Color Yellow Yellow 10/21 [facility] *NA* (10/20/14 11:59 PM) URINE AND UA WBC null 0 - 5 10/21 [facility] URINE AND UA Leuk Est Negative Negative 10/21 [facility] (10/20/14 11:59 PM) URINE AND UA Nitrite Negative Negative 10/21 [facility] (10/20/14 11:59 PM) URINE AND UA Blood Negative Negative 10/21 [facility] (10/20/14 11:59 PM) URINE AND UA Bili Negative Negative 10/21 [facility] *NA* (10/20/14 11:59 PM) URINE AND UA Ketones Negative Negative 10/21 [facility] mg/dL mg/dL [facility] CHEM PANEL Lactic Acid 2.1 mMol/L 0.5 - 2.2 10/21 Lvl [facility] CHEM PANEL eGFR 86 10/21 Result Comment: The eGFR is calculated using the CKD-EPI formula. In most young, healthy individuals the eGFR will be >90 mL/ min/1.73m2. The eGFR declines with age. An eGFR of 60-89 may be normal in mL/min/1.7 /2014 some populations, particularly the elderly, for whom the CKD-EPI formula has not been extensively validated. Use of the eGFR is not recommended in the following populations: [facility] 3m2 Individuals with unstable creatinine concentrations, including patients and those with serious co-morbid conditions. Patients with extremes in muscle mass or diet. The data above are obtained from the National Kidney Disease Education Program (NKDEP) which additionally recommends that when the eGFR is used in patients with extremes of body mass index for purposes of drug dosing, the eGFR should be multiplied by the estimated BMI. CHEM PANEL Bili Total 0.7 mg/dL 0.2 - 1.3 10/21 [facility] CHEM PANEL ALANINE 44 unit/L 0 - 65 10/21 AMINOTRANSFE /2014 [facility] RASE CHEM PANEL ASPARTATE 16 unit/L 0 - 37 10/21 [facility] TRANSAMINASE [facility] CHEM PANEL Alk Phos 91 unit/L 39 - 136 10/21 [facility] CHEM PANEL Creatinine 0.9 mg/dL 0.5 - 1.4 10/21 Lvl [facility] CHEM PANEL Sodium Lvl 133 meq/L 135 - 145 10/21 [facility] CHEM PANEL Potassium 3.8 meq/L 3.5 - 5.1 10/21 Lv [facility] CHEM PANEL B/C Ratio 14 6 - 25 10/21 [facility] CHEM PANEL Globulin 3.9 g/dL 2.0 - 4.0 10/21 [facility] CHEM PANEL A/G Ratio 0.9 0.7 - 1.6 10/21 [facility] CHEM PANEL Total 7.6 g/dL 6.4 - 8.4 10/21 [facility] CHEM PANEL Albumin Lvl 3.7 g/dL 3.5 - 5.0 10/21 [facility] CHEM PANEL Glucose Lvl 174 mg/dL 70 - 99 10/21 [facility] CHEM PANEL BUN 13 mg/dL 7 - 22 10/21 [facility] CHEM PANEL Calcium Lvl 8.5 mg/dL 8.5 - 10.5 10/21 [facility] CHEM PANEL CO2 27 meq/L 24 - 32 10/21 [facility] CHEM PANEL AGAP 12.8 meq/L 10.0 - 10/21 MH 20.0 [facility] CHEM PANEL Chloride Lvl 97 meq/L 95 - 109 10/21 [facility] HEMATOLOGY Sed Rate 35 mm/h 0 - 15 10/21 [facility] HEMATOLOGY INR 1.10 0.85 - 10/21 MH 1.17 /2014 [facility] HEMATOLOGY PTT 31.0 s 22.9 - 10/21 MH 35.8 /2014 [facility] HEMATOLOGY PT 14.3 s 12.0 - 10/21 MH 14.7 /2014 [facility] HEMATOLOGY Hgb 14.4 g/dL 14.0 - 10/21 MH 18.0 /2014 [facility] HEMATOLOGY Hct 42.0 % 42.0 - 10/21 MH 54.0 /2014 [facility] HEMATOLOGY MCV 86.0 fL 80.0 - 10/21 MH 94.0 /2014 [facility] HEMATOLOGY MCH 29.5 pg 27.0 - 10/21 MH 31.0 /2014 [facility] HEMATOLOGY WBC 14.1 K/CMM 3.7 - 10.4 10/21 /2014 [facility] HEMATOLOGY RBC 4.89 M/CMM 4.70 - 10/21 MH 6.10 /2014 [facility] HEMATOLOGY MCHC 34.3 g/dL 32.0 - 10/21 MH 36.0 /2014 [facility] HEMATOLOGY MPV 7.1 fL 7.4 - 10.4 10/21 /2014 [facility] HEMATOLOGY RDW 13.3 % 11.5 - 10/21 MH 14.5 /2014 [facility] HEMATOLOGY Platelet 282 K/CMM 133 - 450 10/21 /2014 [facility] HEMATOLOGY Monocytes 10.1 % 2.0 - 12.0 10/21 /2014 [facility] HEMATOLOGY Lymphocytes 19.3 % 20.0 - 10/21 40.0 /2014 [facility] HEMATOLOGY Segs-Bands # 9.8 K/CMM 1.5 - 8.1 10/21 /2014 [facility] HEMATOLOGY Eosinophils 0.4 % 0.0 - 4.0 10/21 /2014 [facility] HEMATOLOGY Lymphocytes 2.7 K/CMM 1.0 - 5.5 10/21 MH # /2015 [facility] HEMATOLOGY Basophils 0.8 % 0.0 - 1.0 10/21 /2014 [facility] HEMATOLOGY Segs 69.4 % 45.0 - 10/21 75.0 /2014 [facility] HEMATOLOGY Monocytes # 1.4 K/CMM 0.0 - 0.8 10/21 /2014 [facility] HEMATOLOGY Basophils # 0.1 K/CMM 0.0 - 0.2 10/21 /2014 [facility] HEMATOLOGY Eosinophils 0.1 K/CMM 0.0 - 0.5 10/21 # /2015 [facility] IMMUNOLOGY C-REACTIVE 22.5 mg/L <=2.9 mg/L 10/21 PROTEIN [facility] Foot Foot series 10/20 - series DX - [facility] EXAM: Left foot. HISTORY: Pain and swelling left foot, possible foreign body. Read by : David Phillips MD Dictated Date/time: 10/21/14 00:10 COMPARISON: 07/09/2012. Electronically Signed by: David Phillips MD 10/21/14 00:13 FINAL REPORT TECHNIQUE: 3 views left foot. FINDINGS: No radiopaque foreign body seen. Interval amputation of the second toe and head of the second metatarsal. No acute fracture is seen. Stable flattening of the head of the third metatarsal may e related to old trauma. Degenerative change first metatarsophalangeal joint. Calcaneal spurs. SL: 12 BEDSIDE Gluc POC 154 mg/dL 70 - 99 07/13 HI 1Interpretive GLUCOSE [facility] /2012 Data: [facility] TESTING Upper Reportable Limit: 200 mg/dL. BEDSIDE Gluc POC 154 mg/dL 70 - 99 07/13 HI 2Interpretive GLUCOSE [employer] /2012 Data: [facility] TESTING Upper Reportable Limit: 200 mg/dL. BEDSIDE Gluc POC 145 mg/dL 70 - 99 07/12 HI 3Interpretive GLUCOSE [facility] /2012 Data: [facility] TESTING Upper Reportable Limit: 200 mg/dL. BEDSIDE Comment1 Notify 07/12 [facility] GLUCOSE RN/MD /2012 [facility] TESTING BEDSIDE Comment1 Assess 07/11 [facility] GLUCOSE patient /2012 [facility] TESTING BEDSIDE Comment2 Notify 07/11 [facility] GLUCOSE RN/MD /2012 [facility] TESTING BEDSIDE Comment1 Assess 07/11 [facility] GLUCOSE patient /2013 [facility] TESTING BEDSIDE Comment2 Notify 07/11 [facility] GLUCOSE RN/MD /2012 [facility] CHEMISTRY B/C Ratio 10 6 - 25 07/11 Normal [facility] CHEMISTRY Globulin 3.6 g/dL 2.0 - 4.0 07/11 Normal /2012 [facility] CHEMISTRY AGAP 12.0 meq/L 10.0 - 07/11 Normal 20.0 [facility] CHEMISTRY A/G Ratio 0.9 0.7 - 1.6 07/11 Normal [facility] CHEMISTRY eGFR 88 07/11 NA 4Result Comment: The eGFR is calculated using the CKD-EPI formula. In most young, healthy individuals the eGFR will be > 90 mL/min/1.73m2. The eGFR declines with age. An eGFR of 60-89 may be normal in mL/min/1.7 /2013 some populations, particularly the elderly, for whom the CKD-EPI formula has not been extensively validated. Use of the eGFR is not recommended in the following populations: [facility] 3m2 Individuals with unstable creatinine concentrations, including patients and those with serious co-morbid conditions. Patients with extremes in muscle mass or diet. The data above are obtained from the National Kidney Disease Education Program (NKDEP) which additionally recommends that when the eGFR is used in patients with extremes of body mass index for purposes of drug dosing, the eGFR should be multiplied by the estimated BMI. CHEMISTRY Bili Total 0.7 mg/dL 0.2 - 1.3 07/11 Normal [facility] CHEMISTRY AST 11 unit/L 0 - 37 07/11 Normal [facility] CHEMISTRY Calcium Lvl 8.6 mg/dL 8.5 - 10.5 07/11 Normal [facility] CHEMISTRY Total 7.0 g/dL 6.4 - 8.4 07/11 Normal Protein [facility] [facility] CHE[facility]STRY Alk Phos 80 unit/L 39 - 136 07/11 Normal [facility] CHEMISTRY Albumin Lvl 3.4 g/dL 3.5 - 5.0 07/11 LOW MH [facility] CHEMISTRY ALT 26 unit/L 0 - 65 07/11 Normal [facility] CHEMISTRY Glucose Lvl 138 mg/dL 70 - 99 07/11 HI 7Interpretive Data: Adult reference range values reflect the clinical guidelines of the [place] [employer]. [facility] CHEMISTRY CO2 29 meq/L 24 - 32 07/11 Normal [facility] CHEMISTRY Creatinine 0.9 mg/dL 0.5 - 1.4 07/11 Normal Lvl [facility] CHEMISTRY BUN 9 mg/dL 7 - 22 07/11 Normal [facility] CHEMISTRY Chloride Lvl 103 meq/L 95 - 109 07/11 Normal [facility] CHEMISTRY Sodium Lvl 140 meq/L 135 - 145 07/11 Normal [facility] CHEMISTRY Potassium 4.0 meq/L 3.5 - 5.1 07/11 Normal [facility] HEMATOLOGY Hct 39.6 % 42.0 - 05 LOW MH 54.0 [facility] HEMATOLOGY Hgb 13.6 g/dL 14.0 - 07/11 LOW MH 18.0 [facility] HEMATOLOGY MCH 28.9 pg 27.0 - 07/11 Normal MH 31.0 [facility] HEMATOLOGY Platelet 274 K/CMM 133 - 450 07/11 Normal [facility] HEMATOLOGY MCHC 34.4 g/dL 32.0 - 07/11 Normal MH 36.0 [facility] HEMATOLOGY MPV 7.1 fL 7.4 - 10.4 07/11 LOW MH /2012 [facility] HEMATOLOGY RDW 13.5 % 11.5 - 05/10 Normal MH 14.5 /2012 [facility] HEMATOLOGY Hct 39.6 % 42.0 - 05 LOW MH 54.0 /2012 [facility] HEMATOLOGY RBC 4.71 M/CMM 4.70 - 05 Normal MH 6.10 /2012 [facility] HEMATOLOGY MCV 84.1 fL 80.0 - 05 Normal MH 94.0 /2012 [facility] HEMATOLOGY Hgb 13.6 g/dL 14.0 - 05 LOW MH 18.0 /2012 [facility] HEMATOLOGY WBC 7.9 K/CMM 3.7 - 10.4 05/10 Normal MH /2012 [facility] HEMATOLOGY Basophils # 0.1 K/CMM 0.0 - 0.2 05/10 Normal MH /2012 [facility] HEMATOLOGY Segs 58.5 % 45.0 - 05 Normal MH 75.0 /2012 [facility] HEMATOLOGY Lymphocytes 29.2 % 20.0 - 05/10 Normal MH 40.0 /2012 [facility] HEMATOLOGY Monocytes 9.9 % 2.0 - 12.0 05/10 Normal MH /2012 [facility] HEMATOLOGY Eosinophils 0.1 K/CMM 0.0 - 0.5 05/10 Normal MH # /2012 [facility] HEMATOLOGY Monocytes # 0.8 K/CMM 0.0 - 0.8 05/10 Normal MH /2012 [facility] HEMATOLOGY Eosinophils 1.6 % 0.0 - 4.0 05/10 Normal MH /2012 [facility] HEMATOLOGY Basophils 0.8 % 0.0 - 1.0 05/10 Normal MH /2012 [facility] HEMATOLOGY Lymphocytes 2.3 K/CMM 1.0 - 5.5 05/ Normal MH # /2012 [facility] HEMATOLOGY Segs-Bands # 4.6 K/CMM 1.5 - 8.1 05/ Normal MH /2012 [facility] CHEMISTRY eGFR 88 07/10 NA 5Result Comment: The eGFR is calculated using the CKD-EPI formula. In most young, healthy individuals the eGFR will be > 90 mL/min/1.73m2. The eGFR declines with age. An eGFR of 60-89 may be normal in mL/min/1. /2012 some populations, particularly the elderly, for whom the CKD-EPI formula has not been extensively validated. Use of the eGFR is not recommended in the following populations: [facility] 3m2 Individuals with unstable creatinine concentrations, including patients and those with serious co-morbid conditions. Patients with extremes in muscle mass or diet. The data above are obtained from the National Kidney Disease Education Program (NKDEP) which additionally recommends that when the eGFR is used in patients with extremes of body mass index for purposes of drug dosing, the eGFR should be multiplied by the estimated BMI. CHEMISTRY AST 10 unit/L 0 - 37 / Normal [facility] CHEMISTRY Bili Total 1.0 mg/dL 0.2 - 1.3 / Normal [facility] CHEMISTRY Alk Phos 78 unit/L 39 - 136 / Normal [facility] CHEMISTRY ALT 23 unit/L 0 - 65 / Normal [facility] CHEMISTRY Albumin Lvl 3.6 g/dL 3.5 - 5.0 / Normal [facility] CHEMISTRY Total 6.9 g/dL 6.4 - 8.4 / Normal /2012 [facility] CHEMISTRY Calcium Lvl 8.9 mg/dL 8.5 - 10.5 / Normal [facility] CHEMISTRY CO2 28 meq/L 24 - 32 / Normal [facility] CHEMISTRY Creatinine 0.9 mg/dL 0.5 - 1.4 07/10 Normal Lvl /2012 [facility] CHEMISTRY BUN 9 mg/dL 7 - 22 / Normal [facility] CHEMISTRY Glucose Lvl 140 mg/dL 70 - 99 / HI 8Interpretive Data: Adult reference range values reflect the clinical guidelines of the [place] [employer]. [facility] CHEMISTRY Chloride Lvl 102 meq/L 95 - 109 / Normal [facility] CHEMISTRY Potassium 3.9 meq/L 3.5 - 5.1 07/10 Normal Lvl /2012 [facility] CHEMISTRY Sodium Lvl 140 meq/L 135 - 145 / Normal [facility] CHEMISTRY A/G Ratio 1.1 0.7 - 1.6 / Normal [facility] CHEMISTRY Globulin 3.3 g/dL 2.0 - 4.0 / Normal [facility] CHEMISTRY AGAP 13.9 meq/L 10.0 - 05 Normal MH 20.0 /2012 [facility] CHEMISTRY B/C Ratio 10 6 - 25 / Normal /2012 [facility] HEMATOLOGY Basophils # 0.1 K/CMM 0.0 - 0.2 / Normal /2012 [facility] HEMATOLOGY Basophils 0.9 % 0.0 - 1.0 / Normal /2012 [facility] HEMATOLOGY Lymphocytes 1.9 K/CMM 1.0 - 5.5 05/09 Normal MH # /2012 [facility] HEMATOLOGY Segs-Bands # 5.1 K/CMM 1.5 - 8.1 05/ Normal /2012 [facility] HEMATOLOGY Eosinophils 0.2 K/CMM 0.0 - 0.5 / Normal MH # /2012 [facility] HEMATOLOGY Monocytes # 0.8 K/CMM 0.0 - 0.8 / Normal /2012 [facility] HEMATOLOGY Segs 63.2 % 45.0 - 05 Normal MH 75.0 /2012 [facility] HEMATOLOGY Monocytes 10.4 % 2.0 - 12.0 05/ Normal MH /2012 [facility] HEMATOLOGY Lymphocytes 23.6 % 20.0 - 05 Normal MH 40.0 /2012 [facility] HEMATOLOGY Eosinophils 1.9 % 0.0 - 4.0 / Normal /2012 [facility] HEMATOLOGY MPV 7.1 fL 7.4 - 10.4 / LOW /2012 [facility] HEMATOLOGY RDW 13.7 % 11.5 - 05 Normal 14.5 /2012 [facility] HEMATOLOGY Platelet 259 K/CMM 133 - 450 07/10 Normal /2012 [facility] MCH 28.5 pg 27.0 - 07/10 Normal 31.0 /2012 [facility] MCHC 33.1 g/dL 32.0 - 07/10 Normal 36.0 /2012 [facility] HEMATOLOGY Hct 40.6 % 42.0 - 07/10 LOW 54.0 /2012 [facility] HEMATOLOGY MCV 86.0 fL 80.0 - 07/10 Normal 94.0 /2012 [facility] Hgb 13.4 g/dL 14.0 - 07/10 LOW 18.0 [facility] HEMATOLOGY RBC 4.71 M/CMM 4.70 - 07/10 Normal MH 6.10 /2012 [facility] HEMATOLOGY WBC 8.0 K/CMM 3.7 - 10.4 07/10 Normal /2012 [facility] HEMATOLOGY INR 1.01 0.85 - 07/10 Normal 10Interpretive Data: RECOMMENDED RANGES FOR PROTIME INR: 1. 2.0-3.0 for most medical and surgical thromboembolic states. [facility] 2.5-3.5 for artificial heart valves and recurrent embolism. INR SHOULD BE USED ONLY FOR PATIENTS ON STABLE ANTICOAGULANT THERAPY. HEMATOLOGY PTT 30.5 s 22.9 - 05 Normal 12Interpretiv MH 35.8 /2012 e Data: [facility] Heparin Therapeutic Range: 57 - 92 Seconds HEMATOLOGY PT 13.5 s 12.0 - 07/10 Normal 14.7 [facility] Foot w/wo Foot w/wo MRI LEFT FOREFOOT WITHOUT AND WITH IV CONTRAST. 07/09 - contrast contrast MR /2012 - [facility] MR HISTORY: Pain, the patient reports gangrenous second toe. Read by: Vazquez Victor Dictated Date/time: 07/10/12 08:45 Electronically Signed by: Vazquez Victor MD 07/10/12 08:58 FINAL REPORT COMPARISON: Left foot radiography dated July 2012 and 05/19/2012 FINDINGS: There is destruction of the base of the distal phalanx and distal portion of the middle phalanx of the second toe related to osteomyelitis, centered at the distal interphalangeal joint. Abnormal marrow signal throughout much of the fused proximal and middle phalanx of the second toe is compatible with osteomyelitis. The soft tissues of the second toe are severely inflamed and show abnormal enhancement with several tiny foci of probable soft tissue gas. There is severe degenerative arthrosis of the first, second, and third metatarsophalangeal joints without evidence of septic arthritis. There is no evidence of osteomyelitis of the second metatarsal. Th ere is no evidence of osteomyelitis of the first or third rays. 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 Mild hallux valgus is identified. There is edema/inflammation of the subcutaneous tissues of the forefoot diffusely. There is edema signal within the flexor musculature of the forefoot suggestive of diabetic myopathy. No soft tissue abscess is seen. No fracture or dislocation is seen. IMPRESSION: 1. Significant osseous destruction involving the second toe related to osteomyelitis, centered at the distal interphalangeal joint. Osteomyelitis of the distal, middle, and proximal phalanx of the secon d toe. No evidence of osteomyelitis of the second metatarsal head. 2. 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 3. Mild hallux valgus. 4. Superficial and deep soft tissue edema/inflammation the forefoot which is likely related to combination of cellulitis and diabetic myopathy. Thank you for referring your patient to [facility] and [facility]. SL: 14 HEMATOLOGY Sed Rate 31 mm/h 0 - 15 07/09 [facility] IMMUNOLOGY CRP, High 12.8 mg/L 07/09 14Interpretive Data: Low Risk: <1.0 mg/L Average Risk: 1.0 - 3.0 mg/L High Risk: >3.0 mg/L Inflammation: >10.0 mg/L URINALYSIS UA Sq Epi None Seen 07/09 URINALYSIS UA Color Amy 07/09 URINALYSIS UA <=1.0 0.1 - 1.0 07/09 [facility] Urobilinogen mg/dL
*NA*< br/>(07/09 01:20:00) <sup> </sup> URINALYSIS UA Bili Negative Negative 07/09 *NA* (07/09/2012 01:20:00) URINALYSIS UA Glucose 500 mg/dL Negative 07/09 [facility] *ABN* (07/09/2012 01:20:00) URINALYSIS UA Leuk Est Negative Negative 07/09 [place] (07/09/2012 01:20:00) URINALYSIS UA Nitrite Negative Negative 07/09 [place] (07/09/2012 01:20:00) URINALYSIS UA Blood Negative Negative 07/09 [place] (07/09/2012 01:20:00) URINALYSIS UA Ketones Negative mg/dL Negative 07/09 [facility] *NA* (07/09/2012 01:20:00) URINALYSIS UA pH 5.0 5.0 - 8.0 07/09 [facility] URINALYSIS UA Protein Negative mg/dL Negative 07/09 Normal (07/09/2012 01:20:00) URINALYSIS UA Turbidity Marked Clear 07/09 [facility] *ABN* (07/09/2012 01:20:00) URINALYSIS UA Spec Grav 1.021 <=1.030 07/09 [facility] URINALYSIS UA Amorph Many /HPF None Seen 07/09 [facility]ara *ABN* (07/09/2012 01:20:00) Microbiolo Culture: 07/09 gy Urine Microbiolo Culture: 07/09 gy Blood Microbiolo Culture: 07/09 MH gy Blood [facility] CHEMISTRY Lactic Acid 2.0 mMol/L 0.5 - 2.2 07/09 Normal Lvl [facility] CHEMISTRY AGAP 11.5 meq/L 10.0 - 07/09 Normal 20.0 [facility] CHEMISTRY B/C Ratio 16 6 - 25 07/09 Normal [facility] CHEMISTRY Globulin 4.0 g/dL 2.0 - 4.0 07/09 Normal [facility] CHEMISTRY A/G Ratio 1.0 0.7 - 1.6 07/09 Normal [facility] CHEMISTRY Potassium 3.5 meq/L 3.5 - 5.1 07/09 Normal Lvl [facility] CHEMISTRY Chloride Lvl 101 meq/L 95 - 109 07/09 Normal MH [facility] CHEMISTRY Sodium Lvl 137 meq/L 135 - 145 07/09 Normal [facility] CHEMISTRY AST 13 unit/L 0 - 37 07/09 Normal [facility] CHEMISTRY eGFR 92 07/09 NA 6Result Comment: The eGFR is calculated using the CKD-EPI formula. In most young, healthy individuals the eGFR will be > 90 mL/min/1.73m2. The eGFR declines with age. An eGFR of 60-89 may be normal in mL/min/1.7 some populations, particularly the elderly, for whom the CKD-EPI formula has not been extensively validated. Use of the eGFR is not recommended in the following populations: [facility] 3m2 Individuals with unstable creatinine concentrations, including patients and those with serious co-morbid conditions. Patients with extremes in muscle mass or diet. The data above are obtained from the National Kidney Disease Education Program (NKDEP) which additionally recommends that when the eGFR is used in patients with extremes of body mass index for purposes of drug dosing, the eGFR should be multiplied by the estimated BMI. CHEMISTRY Creatinine 0.8 mg/dL 0.5 - 1.4 07/09 Normal [facility] CHEMISTRY BUN 13 mg/dL 7 - 22 07/09 Normal [facility] CHEMISTRY Glucose Lvl 154 mg/dL 70 - 99 07/09 HI 9Interpretive Data: Adult reference range values reflect the clinical guidelines of the [place] [employer]. [facility] CHEMISTRY Calcium Lvl 8.9 mg/dL 8.5 - 10.5 07/09 Normal [facility] CHEMISTRY CO2 28 meq/L 24 - 32 07/09 Normal [facility] CHEMISTRY ALT 34 unit/L 0 - 65 05/08 Normal MH /2012 [facility] CHEMISTRY Albumin Lvl 4.1 g/dL 3.5 - 5.0 05/08 Normal MH /2012 [facility] CHEMISTRY Total 8.1 g/dL 6.4 - 8.4 05/ Normal MH Protein /2012 [facility] CHEMISTRY Bili Total 0.6 mg/dL 0.2 - 1.3 05/ Normal MH /2012 [facility] CHEMISTRY Alk Phos 114 unit/L 39 - 136 05/08 Normal MH /2012 [facility] HEMATOLOGY PTT 30.7 s 22.9 - 05/08 Normal 13Interpretiv MH 35.8 /2012 e Data: [facility] Heparin Therapeutic Range: 57 - 92 Seconds HEMATOLOGY PT 13.0 s 12.0 - 05/ Normal 14.7 /2012 [facility] HEMATOLOGY INR 0.96 0.85 - 07/09 Normal 11Interpretive Data: RECOMMENDED RANGES FOR PROTIME INR: 1.17 2.0-3.0 for most medical and surgical thromboembolic states. [facility] 2.5-3.5 for artificial heart valves and recurrent embolism. INR SHOULD BE USED ONLY FOR PATIENTS ON STABLE ANTICOAGULANT THERAPY. HEMATOLOGY RDW 13.6 % 11.5 - 05/ Normal 14.5 /2012 [facility] HEMATOLOGY Platelet 284 K/CMM 133 - 450 05/ Normal /2012 [facility] HEMATOLOGY MCHC 33.7 g/dL 32.0 - 05/ Normal 36.0 /2012 [facility] HEMATOLOGY MCH 28.9 pg 27.0 - / Normal 31.0 /2012 [facility] HEMATOLOGY MCV 85.8 fL 80.0 - / Normal 94.0 /2012 [facility] HEMATOLOGY RBC 5.02 M/CMM 4.70 - 05/08 Normal MH 6.10 /2012 [facility] HEMATOLOGY WBC 11.2 K/CMM 3.7 - 10.4 05/08 HI MH /2012 [facility] HEMATOLOGY MPV 7.5 fL 7.4 - 10.4 05/08 Normal MH /2012 [facility] HEMATOLOGY Basophils # 0.1 K/CMM 0.0 - 0.2 05/08 Normal MH /2012 [facility] HEMATOLOGY Eosinophils 0.1 K/CMM 0.0 - 0.5 05/08 Normal MH # /2013 [facility] HEMATOLOGY Lymphocytes 2.9 K/CMM 1.0 - 5.5 05/08 Normal MH # /2012 [facility] HEMATOLOGY Segs-Bands # 7.0 K/CMM 1.5 - 8.1 07/09 Normal [facility] HEMATOLOGY Monocytes # 1.2 K/CMM 0.0 - 0.8 / HI [facility] HEMATOLOGY Basophils 0.5 % 0.0 - 1.0 07/09 Normal [facility] HEMATOLOGY Eosinophils 1.1 % 0.0 - 4.0 07/09 Normal [facility] HEMATOLOGY Monocytes 10.4 % 2.0 - 12.0 07/09 Normal [facility] HEMATOLOGY Lymphocytes 25.7 % 20.0 - 07/09 Normal MH 40.0 [facility] HEMATOLOGY Segs 62.3 % 45.0 - 07/09 Normal MH 75.0 /2012 [facility] Foot Foot series Left foot, 3 views: 07/09 - [facility] CLINICAL HISTORY: Fracture Read by: Parish Gudino Dictated Date/time: 07/09/12 00:18 Electronically Signed by: Parish Gudino MD 07/09/12 00:19 FINAL REPORT Multiple deformities within the metatarsophalangeal joints and toes is likely related to moderate osteoarthritis and possible old healed fractures. Findings are similar to 05/19/2012. No definite acute fracture or dislocation is appreciated. Spurs are seen at the insertions of the Achilles tendon and plantar aponeurosis. Prominent soft tissue thickening is seen in the forefoot includes. More sensitive evaluation may be obtained with precontrast and postcontrast MRI or with a three phase bone scan. SL: 14. Chest Chest 1view EXAMINATION: Chest 1view 07/09 - /2012 [facility] CLINICAL HISTORY: Fever Read by: Parish Gudino Dictated Date/time: 07/09/12 00:16 Electronically Signed by: Parish Gudino MD 07/09/12 00:18 FINAL REPORT Since 05/26/2012, pulmonary inflation has increased. The lungs are clear of consolidation, pleural effusion, and pneumothorax. Scattered tiny calcified granulomas are suspected in both lungs considering density greater than the ribs. Confirmation may be obtained during follow- up CT chest. The heart size is at the upper limits of normal. No acute fracture , dislocation, or focal osseous lesion is apprec iated. Mild spinal degenerative change and dextroscoliosis. SL: 14. BEDSIDE Gluc POC 156 mg/dL 70 - 99 05/27 HI 1Interpretive GLUCOSE Lifsc Data: [facility] TESTING Upper Reportable Limit: 200 mg/dL. BEDSIDE Comment1 Notify 05/27 [facility] GLUCOSE RN/MD [facility] TESTING BEDSIDE Comment1 Notify 05/27 [facility] GLUCOSE RN/MD [facility] TESTING BEDSIDE Gluc POC 166 mg/dL 70 - 99 05/27 HI 2Interpretive GLUCOSE Lifsc Data: [facility] TESTING Upper Reportable Limit: 200 mg/dL. BEDSIDE Comment1 Notify 05/27 NA GLUCOSE RN/MD /2012 [facility] TESTING BEDSIDE Gluc POC 148 mg/dL 70 - 99 05/27 HI 3Interpretive GLUCOSE Lifsc Data: [facility] TESTING Upper Reportable Limit: 200 mg/dL. CHEMISTRY Vanco Tr 12.7 ug/ml 05/25 NA 9Interpretive Data: Therapeutic Range: Trough: 10 - 20 ug/mL [facility] Peak: 20 - 40 ug/mL Potential Toxicity: >80 ug/mL CHEMISTRY Vanco Tr TND 0300 05/25 NA [facility] CHEMISTRY eGFR 88 05/25 NA 4Result Comment: The eGFR is calculated using the CKD-EPI formula. In most young, healthy individuals the eGFR will be > 90 mL/min/1.73m2. The eGFR declines with age. An eGFR of 60-89 may be normal in mL/min/1.7 some populations, particularly the elderly, for whom the CKD-EPI formula has not been extensively validated. Use of the eGFR is not recommended in the following populations: [facility] 3m2 Individuals with unstable creatinine concentrations, including patients and those with serious co-morbid conditions. Patients with extremes in muscle mass or diet. The data above are obtained from the National Kidney Disease Education Program (NKDEP) which additionally recommends that when the eGFR is used in patients with extremes of body mass index for purposes of drug dosing, the eGFR should be multiplied by the estimated BMI. CHEMISTRY Albumin Lvl 3.9 g/dL 3.5 - 5.0 05/25 Normal [facility] CHEMISTRY Calcium Lvl 9.2 mg/dL 8.5 - 10.5 05/25 Normal [facility] CHEMISTRY Chloride Lvl 103 meq/L 95 - 109 05/25 Normal [facility] CHEMISTRY CO2 32 meq/L 24 - 32 05/25 Normal [facility] CHEMISTRY Potassium 3.9 meq/L 3.5 - 5.1 05/25 Normal Lvl /2012 [facility] CHEMISTRY Glucose Lvl 117 mg/dL 70 - 99 / HI 6Interpretive Data: Adult reference range values reflect the clinical guidelines of the [place] [employer]. [facility] CHEMISTRY BUN 10 mg/dL 7 - 22 05/25 Normal [facility] CHEMISTRY Creatinine 0.9 mg/dL 0.5 - 1.4 05/25 Normal Lvl /2012 [facility] CHEMISTRY Sodium Lvl 140 meq/L 135 - 145 05/25 Normal [facility] CHEMISTRY ALT 58 unit/L 0 - 65 05/25 Normal [facility] CHEMISTRY Total 7.7 g/dL 6.4 - 8.4 05/25 Normal MH [facility] CHEMISTRY Alk Phos 74 unit/L 39 - 136 05/25 Normal [facility] CHEMISTRY Bili Total 0.5 mg/dL 0.2 - 1.3 05/25 Normal [facility] CHEMISTRY AST 32 unit/L 0 - 37 05/25 Normal [facility] CHEMISTRY AGAP 8.9 meq/L 10.0 - 05/25 LOW MH 20.0 [facility] CHEMISTRY B/C Ratio 11 6 - 25 05/25 Normal [facility] CHEMISTRY A/G Ratio 1.0 0.7 - 1.6 05/25 Normal [facility] CHEMISTRY Globulin 3.8 g/dL 2.0 - 4.0 05/25 Normal [facility] HEMATOLOGY Lymphocytes 36.1 % 20.0 - 05/25 Normal 40.0 /2012 [facility] HEMATOLOGY Monocytes 9.6 % 2.0 - 12.0 05/25 Normal [facility] HEMATOLOGY Basophils 0.5 % 0.0 - 1.0 05/25 Normal [facility] HEMATOLOGY Eosinophils 1.8 % 0.0 - 4.0 05/25 Normal [facility] HEMATOLOGY Segs-Bands # 4.6 K/CMM 1.5 - 8.1 05/25 Normal /2012 [facility] HEMATOLOGY Monocytes # 0.8 K/CMM 0.0 - 0.8 05/25 Normal /2012 [facility] HEMATOLOGY Lymphocytes 3.2 K/CMM 1.0 - 5.5 05/25 Normal MH /2012 [facility] HEMATOLOGY Eosinophils 0.2 K/CMM 0.0 - 0.5 05/25 Normal MH # /2012 [facility] HEMATOLOGY Basophils # 0.0 K/CMM 0.0 - 0.2 05/25 Normal /2012 [facility] HEMATOLOGY Segs 52.0 % 45.0 - 05/25 Normal 75.0 /2012 [facility] HEMATOLOGY WBC 8.8 K/CMM 3.7 - 10.4 05/25 Normal /2012 [facility] HEMATOLOGY RBC 4.96 M/CMM 4.70 - 05/25 Normal 6.10 [facility] HEMATOLOGY Hct 43.1 % 42.0 - 05/25 Normal 54.0 /2012 [facility] HEMATOLOGY Hgb 14.3 g/dL 14.0 - 05/25 Normal 18.0 [facility] HEMATOLOGY MCV 87.0 fL 80.0 - 05/25 Normal 94.0 [facility] HEMATOLOGY MCHC 33.2 g/dL 32.0 - 05/25 Normal 36.0 [facility] HEMATOLOGY MCH 28.9 pg 27.0 - 05/25 Normal 31.0 [facility] HEMATOLOGY RDW 14.0 % 11.5 - 05/25 Normal 14.5 [facility] HEMATOLOGY Platelet 269 K/CMM 133 - 450 05/25 Normal [facility] HEMATOLOGY MPV 7.1 fL 7.4 - 10.4 05/25 LOW [facility] CHEMISTRY Hgb A1C 7.9 % 05/21 NA 8Interpretive Data: HbA1C% eAG(mg /dL) Interpretation 6.0 126 Very good control [facility] 6.5 140 Very good control 7.0 154 Good Control 7.5 169 Good Control 8.0 183 Marginal Control, take action to lower 8.5 197 Marginal Control, take action to lower 9.0 212 Poor Control, take action to lower 9.5 226 Poor Control, take action to lower 10.0 240 Poor Control, take action to lower CHEMISTRY Vanco Tr 7.9 ug/ml 05/21 NA 10Interpretive Data: Therapeutic Range: Trough: 10 - 20 ug/mL [facility] Peak: 20 - 40 ug/mL Potential Toxicity: >80 ug/mL CHEMISTRY Vanco Tr TND 0300 05/21 NA [facility] CHEMISTRY AGAP 13.7 meq/L 10.0 - 05/20 Normal 20. [facility] CHEMISTRY eGFR 78 05/20 NA 5Result Comment: The eGFR is calculated using the CKD-EPI formula. In most young, healthy individuals the eGFR will be > 90 mL/min/1.73m2. The eGFR declines with age. An eGFR of 60-89 may be normal in mL/min/1.7 /2012 some populations, particularly the elderly, for whom the CKD-EPI formula has not been extensively validated. Use of the eGFR is not recommended in the following populations: [facility] 3m2 Individuals with unstable creatinine concentrations, including patients and those with serious co-morbid conditions. Patients with extremes in muscle mass or diet. The data above are obtained from the National Kidney Disease Education Program (NKDEP) which additionally recommends that when the eGFR is used in patients with extremes of body mass index for purposes of drug dosing, the eGFR should be multiplied by the estimated BMI. CHEMISTRY Chloride Lvl 99 meq/L 95 - 109 05/20 Normal [facility] CHEMISTRY CO2 31 meq/L 24 - 32 05/20 Normal [facility] CHEMISTRY Potassium 3.7 meq/L 3.5 - 5.1 05/20 Normal [facility] CHEMISTRY Calcium Lvl 9.6 mg/dL 8.5 - 10.5 05/20 Normal [facility] CHEMISTRY Glucose Lvl 142 mg/dL 70 - 99 05/20 HI 7Interpretive Data: Adult reference range values reflect the clinical guidelines of the [place] [employer]. [facility] CHEMISTRY Creatinine 1.0 mg/dL 0.5 - 1.4 05/20 Normal [facility] CHEMISTRY Sodium Lvl 140 meq/L 135 - 145 05/20 Normal [facility] CHEMISTRY BUN 15 mg/dL 7 - 22 05/20 Normal [facility] HEMATOLOGY PTT 30.9 s 22.9 - 05/20 Normal 12Interpretiv 35.8 e Data: [facility] Heparin Therapeutic Range: 57 - 92 Seconds HEMATOLOGY PT 13.7 s 12.0 - 05/20 Normal 14.7 [facility] HEMATOLOGY INR 1.03 0.85 - 05/20 Normal 11Interpretive Data: RECOMMENDED RANGES FOR PROTIME INR: . 2.0-3.0 for most medical and surgical thromboembolic states. [facility] 2.5-3.5 for artificial heart valves and recurrent embolism. INR SHOULD BE USED ONLY FOR PATIENTS ON STABLE ANTICOAGULANT THERAPY. HEMATOLOGY Hct 44.9 % 42.0 - 05/20 Normal 54.0 [facility] HEMATOLOGY RDW 14.3 % 11.5 - 05/20 Normal 14.5 /2012 [facility] HEMATOLOGY Platelet 266 K/CMM 133 - 450 05/20 Normal /2012 [facility] HEMATOLOGY MPV 7.2 fL 7.4 - 10.4 05/20 LOW /2012 [facility] HEMATOLOGY MCV 86.5 fL 80.0 - 05/20 Normal 94.0 /2012 [facility] HEMATOLOGY MCHC 32.5 g/dL 32.0 - 05/20 Normal 36.0 /2012 [facility] HEMATOLOGY MCH 28.1 pg 27.0 - 05/20 Normal 31.0 /2012 [facility] HEMATOLOGY RBC 5.19 M/CMM 4.70 - 05/20 Normal [facility] 6.10 /2012 [facility] HEMATOLOGY WBC 6.7 K/CMM 3.7 - 10.4 05/20 Normal /2012 [facility] HEMATOLOGY Hgb 14.6 g/dL 14.0 - 05/20 Normal 18.0 [facility] HEMATOLOGY Lymphocytes 2.2 K/CMM 1.0 - 5.5 05/20 Normal # /2012 [facility] HEMATOLOGY Monocytes # 0.9 K/CMM 0.0 - 0.8 05/20 HI [facility] HEMATOLOGY Eosinophils 0.1 K/CMM 0.0 - 0.5 05/20 Normal /2012 [facility] HEMATOLOGY Basophils 0.4 % 0.0 - 1.0 05/20 Normal [facility] HEMATOLOGY Eosinophils 0.9 % 0.0 - 4.0 05/20 Normal [facility] HEMATOLOGY Segs-Bands # 3.6 K/CMM 1.5 - 8.1 05/20 Normal /2012 [facility] HEMATOLOGY Basophils # 0.0 K/CMM 0.0 - 0.2 05/20 Normal [facility] HEMATOLOGY Segs 53.0 % 45.0 - 05/20 Normal 75.0 /2012 [facility] HEMATOLOGY Monocytes 12.9 % 2.0 - 12.0 05/20 HI [facility] HEMATOLOGY Lymphocytes 32.8 % 20.0 - 05/20 Normal 40.0 /2012 [facility] Vital Signs Vital Sign Value Date Comments Source Systolic (mm Hg) 162 04/30/2017 [facility] Diastolic (mm Hg) 77 04/30/2017 [facility] Heart Rate 81 04/30/2017 [facility] Respitory Rate 18 04/30/2017 [facility] BMI Calculated 42.56 04/30/2017 [facility] Weight 134.545 04/30/2017 [facility] Height 177.8 cm 04/30/2017 [facility] Temperature Oral (F) 98.2 F 03/09/2017 [facility] Respitory Rate 20 03/09/2017 [facility] Systolic (mm Hg) 113 03/09/2017 [facility] Diastolic (mm Hg) 68 03/09/2017 [facility] Heart Rate 92 03/09/2017 [facility] Systolic (mm Hg) 125 03/09/2017 [facility] Diastolic (mm Hg) 72 03/09/2017 [facility] Respitory Rate 20 03/09/2017 [facility] Heart Rate 81 03/09/2017 [facility] Temperature Oral (F) 98.1 F 03/09/2017 [facility] Systolic (mm Hg) 119 03/09/2017 [facility] Diastolic (mm Hg) 72 03/09/2017 [facility] Respitory Rate 20 03/09/2017 [facility] Heart Rate 95 03/09/2017 [facility] Temperature Oral (F) 98.1 F 03/09/2017 [facility] Weight 136.364 03/09/2017 [facility] BMI Calculated 40.77 03/09/2017 [facility] Height 182.88 cm 03/09/2017 [facility] Weight 136.364 03/08/2017 [facility] Height 182.88 cm 03/08/2017 [facility] BMI Calculated 40.77 03/08/2017 [facility] Weight 310 03/06/2017 2.16.840.1.140118. 4.391.11.91273 Height 72 03/06/2017 2.16.840.1.021516. 4.391.11.97593 Temperature Oral (F) 97.3 F 03/06/2017 2.16.840.1.895757. 4.391.11.72891 Heart Rate 76 03/06/2017 2.16.840.1.189888. 4.391.11.15788 Diastolic (mm Hg) 77 03/06/2017 2.16.840.1.241584. 4.391.11.27505 Systolic (mm Hg) 155 03/06/2017 2.16.840.1.467723. 4.391.11.93122 Weight 307 02/13/2017 2.16.840.1.042178. 4.391.11.40066 Height 72 02/13/2017 2.16.840.1.619091. 4.391.11.69482 Temperature Oral (F) 97.6 F 02/13/2017 2.16.840.1.431310. 4.391.11.67830 Heart Rate 85 02/13/2017 2.16.840.1.638781. 4.391.11.21976 Diastolic (mm Hg) 72 02/13/2017 2.16.840.1.461333. 4.391.11.27139 Systolic (mm Hg) 143 02/13/2017 2.16.840.1.372815. 4.391.11.70125 Weight 298 01/09/2017 2.16.840.1.295468. 4.391.11.78640 Height 72 01/09/2017 2.16.840.1.869897. 4.391.11.84058 Temperature Oral (F) 98.2 F 01/09/2017 2.16.840.1.056363. 4.391.11.12815 Heart Rate 89 01/09/2017 2.16.840.1.066058. 4.391.11.66945 Diastolic (mm Hg) 94 01/09/2017 2.16.840.1.585373. 4.391.11.66326 Systolic (mm Hg) 159 01/09/2017 2.16.840.1.599556. 4.391.11.25931 Systolic (mm Hg) 147 12/31/2016 [facility] Diastolic (mm Hg) 63 12/31/2016 [facility] Respitory Rate 18 12/31/2016 [facility] Heart Rate 64 12/31/2016 [facility] Heart Rate 67 12/31/2016 [facility] Respitory Rate 18 12/31/2016 [facility] Systolic (mm Hg) 141 12/31/2016 [facility] Diastolic (mm Hg) 69 12/31/2016 [facility] Weight 133.636 12/31/2016 [facility] Height 182.88 cm 12/31/2016 [facility] BMI Calculated 39.96 12/31/2016 [facility] Systolic (mm Hg) 150 12/31/2016 [facility] Diastolic (mm Hg) 81 12/31/2016 [facility] Respitory Rate 18 12/31/2016 [facility] Heart Rate 88 12/31/2016 [facility] Temperature Oral (F) 98 F 12/31/2016 [facility] Weight 295 12/26/2016 2.16.840.1.573728. 4.391.11.45350 Height 72 12/26/2016 2.16.840.1.266465. 4.391.11.76561 Temperature Oral (F) 98.2 F 12/26/2016 2.16.840.1.728335. 4.391.11.33037 Heart Rate 88 12/26/2016 2.16.840.1.586615. 4.391.11.29891 Diastolic (mm Hg) 87 12/26/2016 2.16.840.1.397460. 4.391.11.82890 Systolic (mm Hg) 129 12/26/2016 2.16.840.1.751867. 4.391.11.67337 Weight 295 12/19/2016 2.16.840.1.597513. 4.391.11.90506 Height 72 12/19/2016 2.16.840.1.425448. 4.391.11.22441 Temperature Oral (F) 98.0 F 12/19/2016 2.16.840.1.057146. 4.391.11.87092 Heart Rate 90 12/19/2016 2.16.840.1.871254. 4.391.11.46964 Diastolic (mm Hg) 85 12/19/2016 2.16.840.1.578375. 4.391.11.46392 Systolic (mm Hg) 131 12/19/2016 2.16.840.1.088664. 4.391.11.38359 Temperature Oral (F) 98.2 F 12/04/2016 [facility] Systolic (mm Hg) 114 12/04/2016 [facility] Diastolic (mm Hg) 71 12/04/2016 [facility] Respitory Rate 16 12/04/2016 [facility] Heart Rate 79 12/04/2016 [facility] Weight 127.455 12/04/2016 [facility] Respitory Rate 16 12/04/2016 [facility] Systolic (mm Hg) 125 12/04/2016 [facility] Diastolic (mm Hg) 71 12/04/2016 [facility] Heart Rate 73 12/04/2016 [facility] Temperature Oral (F) 97.8 F 12/04/2016 [facility] Systolic (mm Hg) 99 12/04/2016 [facility] Diastolic (mm Hg) 60 12/04/2016 [facility] Respitory Rate 18 12/04/2016 [facility] Heart Rate 76 12/04/2016 [facility] Temperature Oral (F) 98.1 F 12/04/2016 [facility] Weight 129.091 11/30/2016 [facility] BMI Calculated 38.6 11/30/2016 [facility] Height 182.88 cm 11/30/2016 [facility] Weight 294 11/29/2016 2.16.840.1.515334. 4.391.11.63699 Height 72 11/29/2016 2.16.840.1.350235. 4.391.11.10968 Temperature Oral (F) 98.1 F 11/29/2016 2.16.840.1.962623. 4.391.11.80294 Heart Rate 95 11/29/2016 2.16.840.1.293553. 4.391.11.58385 Diastolic (mm Hg) 58 11/29/2016 2.16.840.1.511573. 4.391.11.15095 Systolic (mm Hg) 109 11/29/2016 2.16.840.1.260126. 4.391.11.52240 Weight 295 11/15/2016 2.16.840.1.004464. 4.391.11.68160 Height 72 11/15/2016 2.16.840.1.525577. 4.391.11.17533 Temperature Oral (F) 98.3 F 11/15/2016 2.16.840.1.453996. 4.391.11.70041 Heart Rate 90 11/15/2016 2.16.840.1.707139. 4.391.11.31423 Diastolic (mm Hg) 81 11/15/2016 2.16.840.1.677832. 4.391.11.23336 Systolic (mm Hg) 154 11/15/2016 2.16.840.1.381737. 4.391.11.20355 Systolic (mm Hg) 126 10/24/2016 [facility] Diastolic (mm Hg) 64 10/24/2016 [facility] Respitory Rate 17 10/24/2016 [facility] Temperature Oral (F) 98.5 F 10/24/2016 [facility] Systolic (mm Hg) 133 10/24/2016 [facility] Diastolic (mm Hg) 67 10/24/2016 [facility] Respitory Rate 22 10/24/2016 [facility] Temperature Oral (F) 98.8 F 10/24/2016 [facility] Systolic (mm Hg) 114 10/24/2016 [facility] Diastolic (mm Hg) 62 10/24/2016 [facility] Respitory Rate 16 10/24/2016 [facility] Heart Rate 83 10/24/2016 [facility] BMI Calculated 26.23 10/24/2016 [facility] Weight 87.727 10/24/2016 [facility] Height 182.88 cm 10/24/2016 [facility] Temperature Oral (F) 98.1 F 09/20/2016 [facility] Heart Rate 74 09/20/2016 [facility] Systolic (mm Hg) 154 09/20/2016 [facility] Diastolic (mm Hg) 92 09/20/2016 [facility] Respitory Rate 18 09/20/2016 [facility] Respitory Rate 18 09/20/2016 [facility] Heart Rate 66 09/20/2016 [facility] Temperature Oral (F) 97.6 F 09/20/2016 [facility] Systolic (mm Hg) 168 09/20/2016 [facility] Diastolic (mm Hg) 87 09/20/2016 [facility] Temperature Oral (F) 97.6 F 09/20/2016 [facility] Heart Rate 66 09/20/2016 [facility] Respitory Rate 16 09/20/2016 [facility] Systolic (mm Hg) 122 09/20/2016 [facility] Diastolic (mm Hg) 66 09/20/2016 [facility] Weight 129.9 09/19/2016 [facility] BMI Calculated 39.41 09/16/2016 [facility] Weight 131.818 09/16/2016 [facility] Height 182.88 cm 09/16/2016 [facility] Height 182.88 cm 09/16/2016 [facility] Weight 131.818 09/16/2016 [facility] BMI Calculated 39.41 09/16/2016 [facility] Weight 290 09/12/2016 2.16.840.1.129134. 4.391.11.63673 Height 72 09/12/2016 2.16.840.1.768109. 4.391.11.13436 Temperature Oral (F) 97.8 F 09/12/2016 2.16.840.1.963802. 4.391.11.58397 Heart Rate 66 09/12/2016 2.16.840.1.314852. 4.391.11.97169 Diastolic (mm Hg) 61 09/12/2016 2.16.840.1.128758. 4.391.11.90200 Systolic (mm Hg) 129 09/12/2016 2.16.840.1.956608. 4.391.11.96278 Weight 290 08/08/2016 2.16.840.1.965238. 4.391.11.33630 Height 72 08/08/2016 2.16.840.1.156964. 4.391.11.37907 Temperature Oral (F) 98.0 F 08/08/2016 2.16.840.1.286188. 4.391.11.61000 Heart Rate 68 08/08/2016 2.16.840.1.632586. 4.391.11.53005 Diastolic (mm Hg) 73 08/08/2016 2.16.840.1.159158. 4.391.11.18709 Systolic (mm Hg) 139 08/08/2016 2.16.840.1.625512. 4.391.11.90348 Weight 290 08/01/2016 2.16.840.1.578594. 4.391.11.50701 Height 72 08/01/2016 2.16.840.1.016433. 4.391.11.59330 Temperature Oral (F) 98.2 F 08/01/2016 2.16.840.1.889545. 4.391.11.65299 Heart Rate 115 08/01/2016 2.16.840.1.830248. 4.391.11.32079 Diastolic (mm Hg) 72 08/01/2016 2.16.840.1.967912. 4.391.11.34763 Systolic (mm Hg) 142 08/01/2016 2.16.840.1.758831. 4.391.11.74350 Heart Rate 99 06/15/2016 [facility] Temperature Oral (F) 97.7 F 06/15/2016 [facility] Respitory Rate 18 06/15/2016 [facility] Systolic (mm Hg) 127 06/15/2016 [facility] Diastolic (mm Hg) 86 06/15/2016 [facility] Heart Rate 93 06/15/2016 [facility] Temperature Oral (F) 97.8 F 06/15/2016 [facility] Respitory Rate 18 06/15/2016 [facility] Systolic (mm Hg) 127 06/15/2016 [facility] Diastolic (mm Hg) 75 06/15/2016 [facility] Temperature Oral (F) 97.4 F 06/15/2016 [facility] Heart Rate 89 06/15/2016 [facility] Systolic (mm Hg) 146 06/15/2016 [facility] Diastolic (mm Hg) 77 06/15/2016 [facility] Respitory Rate 16 06/15/2016 [facility] Height 182.88 cm 06/09/2016 [facility] BMI Calculated 39.47 06/09/2016 [facility] Weight 132 06/09/2016 [facility] Height 182.88 cm 06/09/2016 [facility] Height 182.88 cm 06/09/2016 [facility] Weight 131.818 06/09/2016 [facility] BMI Calculated 39.41 06/09/2016 [facility] Respitory Rate 17 05/16/2016 [facility] Systolic (mm Hg) 107 05/16/2016 [facility] Diastolic (mm Hg) 47 05/16/2016 [facility] Systolic (mm Hg) 117 05/16/2016 [facility] Diastolic (mm Hg) 57 05/16/2016 [facility] Respitory Rate 18 05/16/2016 [facility] Systolic (mm Hg) 114 05/16/2016 [facility] Diastolic (mm Hg) 64 05/16/2016 [facility] Respitory Rate 19 05/16/2016 [facility] Temperature Oral (F) 98.2 F 05/10/2016 [facility] Heart Rate 77 05/10/2016 [facility] Height 182.88 cm 05/10/2016 [facility] BMI Calculated 39.45 05/10/2016 [facility] Weight 131.932 05/10/2016 [facility] Heart Rate 65 01/26/2015 [facility] Temperature Oral (F) 97.5 F 01/26/2015 [facility] Systolic (mm Hg) 128 01/26/2015 [facility] Diastolic (mm Hg) 80 01/26/2015 [facility] Temperature Oral (F) 97.7 F 01/26/2015 [facility] Systolic (mm Hg) 157 01/26/2015 [facility] Diastolic (mm Hg) 80 01/26/2015 [facility] Heart Rate 72 01/26/2015 [facility] Systolic (mm Hg) 124 01/26/2015 [facility] Diastolic (mm Hg) 72 01/26/2015 [facility] Respitory Rate 17 01/26/2015 [facility] Heart Rate 68 01/26/2015 [facility] Temperature Oral (F) 98.1 F 01/26/2015 [facility] Respitory Rate 16 01/26/2015 [facility] Respitory Rate 16 01/26/2015 [facility] Weight 82.528 01/22/2015 [facility] Weight 131.818 01/17/2015 [facility] BMI Calculated 39.41 01/17/2015 [facility] Height 182.88 cm 01/17/2015 [facility] Temperature Oral (F) 97.8 F 10/25/2014 [facility] Heart Rate 72 10/25/2014 [facility] Systolic (mm Hg) 125 10/25/2014 [facility] Diastolic (mm Hg) 76 10/25/2014 [facility] Respitory Rate 18 10/25/2014 [facility] Respitory Rate 18 10/25/2014 [facility] Systolic (mm Hg) 127 10/25/2014 [facility] Diastolic (mm Hg) 80 10/25/2014 [facility] Temperature Oral (F) 97.6 F 10/25/2014 [facility] Heart Rate 58 10/25/2014 [facility] Systolic (mm Hg) 132 10/25/2014 [facility] Diastolic (mm Hg) 77 10/25/2014 [facility] Temperature Oral (F) 97.6 F 10/25/2014 [facility] Heart Rate 66 10/25/2014 [facility] Respitory Rate 18 10/25/2014 [facility] Height 182.88 cm 10/21/2014 [facility] BMI Calculated 39.41 10/21/2014 [facility] Weight 131.818 10/21/2014 [facility] Weight 131.818 10/21/2014 [facility] Respitory Rate 20 07/13/2012 [facility] Systolic (mm Hg) 131 07/13/2012 [facility] Diastolic (mm Hg) 75 07/13/2012 [facility] Heart Rate 81 07/13/2012 [facility] Temperature Oral (F) 97.6 F 07/13/2012 [facility] Diastolic (mm Hg) 90 07/13/2012 [facility] Temperature Oral (F) 98.1 F 07/13/2012 [facility] Heart Rate 61 07/13/2012 [facility] Respitory Rate 17 07/13/2012 [facility] Systolic (mm Hg) 150 07/13/2012 [facility] Systolic (mm Hg) 130 07/13/2012 [facility] Respitory Rate 20 07/13/2012 [facility] Diastolic (mm Hg) 78 07/13/2012 [facility] Heart Rate 63 07/13/2012 [facility] Temperature Oral (F) 97.6 F 07/13/2012 [facility] Weight 131 07/09/2012 [facility] Height 182.8 cm 07/09/2012 [facility] Weight 131.818 07/09/2012 [facility] Height 182.88 cm 07/09/2012 [facility] Diastolic (mm Hg) 79 05/27/2012 [facility] Systolic (mm Hg) 136 05/27/2012 [facility] Heart Rate 70 05/27/2012 [facility] Respitory Rate 20 05/27/2012 [facility] Temperature Oral (F) 97.6 F 05/27/2012 [facility] Diastolic (mm Hg) 79 05/27/2012 [facility] Systolic (mm Hg) 132 05/27/2012 [facility] Heart Rate 70 05/27/2012 [facility] Temperature Oral (F) 97.9 F 05/27/2012 [facility] Respitory Rate 20 05/27/2012 [facility] Diastolic (mm Hg) 90 05/27/2012 [facility] Systolic (mm Hg) 144 05/27/2012 [facility] Heart Rate 71 05/27/2012 [facility] Respitory Rate 20 05/27/2012 [facility] Temperature Oral (F) 97.4 F 05/27/2012 [facility] Weight 129.545 05/20/2012 [facility] Height 182.88 cm 05/20/2012 [facility] Height 182.88 cm 05/19/2012 [facility] Weight 129.091 05/19/2012 [facility] Encounters Location Location Encounter Encounter Reason Attending ADM DC Status Source Details Type Number For Provider Date Date Visit Inpatient [id number] LEFT TOE NIBU HUMBERTO 05/19 05/27 Active [facility] 2 CELLULIT /2012 [facility] [id number] NIBU HUMBERTO 07/09 07/13 Active [facility] [place] Unknown [id number] 10/18 10/18 [place] [facility] [id number] /[id number] [facility] f52 [facility] Unknown [id number] 10/18 10/18 [facility] [id number] /2014 [facility] [id number] Assoc fb1 [facility] Unknown [id number] 10/18 10/18 [facility] [id number] /2014 [facility] [id number] Assoc d34 [place] Unknown [id number] 10/18 10/18 [facility] [id number] /2014 [facility] [id number] Assoc 0ef [facility] Unknown [id number] 10/18 10/18 [facility] Pod[facility] [id number] /2014 [facility] [id number] Assoc d08 [facility] [id number] Adonay Vasquesew 10/21 10/25 [facility] Unknown [id number] 12/02 12/02 [facility] [id number] /2014 [facility] [id number] Assoc b18 [facility] Unknown [id number] 12/02 12/02 [facility] [id number] /2014 [facility] [id number] Assoc 6d8 [facility] Unknown [id number] 12/02 12/02 [facility] [id number] /2014 [facility] [id number] Assoc c22 [facility] Unknown [id number] 12/02 12/02 [facility] [id number] /2014 [facility] [id number] Assoc ecb [facility] FYI [id number] 01/17 01/17 [facility] [id number] /2014 [facility] [id number] Assoc fd5 [facility] FYI [id number] 01/17 01/17 [facility] [id number] /2014 [facility] [id number] Assoc 871 [facility] FYI [id number] 01/17 01/17 [facility] Pod[facility] [id number] /2014 [facility] [id number] Assoc 65c [facility] FYI [id number] 01/17 01/17 [facility] Pod[facility] [id number] /2014 [facility] [id number] [facility]oc 537 [place] [facility] [id number] Adonay Paul 01/17 01/26 JYOTHI Longoria 5 /2014 [facility] Unknown [id number] 02/03 02/03 [facility] [id number] /2014 [facility] [id number] [facility]oc 058 [facility] Unknown [id number] 02/03 02/03 [facility] Pod[facility] [id number] /2014 [facility] [id number] Assoc 4e6 [facility] Unknown [id number] 02/03 02/03 [facility] Pod[facility] [id number] /2014 [facility] [id number] Assoc 0af [facility] Unknown [id number] 04/20 04/20 [facility] Pod[facility] [id number] /2016 [facility] [id number] Assoc 01b [facility] Unknown [id number] 04/20 04/20 [facility] [id number] /[id number] [facility] 18c [facility] sx may [id number] 04/25 04/25 [facility] 15th [id number] /2016 [facility] [id number] [facility] 01b [facility] [id number] Yasmany 05/16 05/16 JYOTHI Longoria [address] [facility] Inpatient [id number] Dejon Mcdaniels 06/09 06/[address] [facility] Outpatient [id number] Nibu Humberto 08/27 08/[address] [facility] Inpatient [id number] Genaro Hasan 09/16 09/[address] [facility] Emergency [id number] Gavin 10/24 10/24 Von 1 Rajan /2016 [facility] Inpatient [id number] Ivanna 11/30 12/[address] [facility] Emergency [id number] Jorge Luis 12/31 12/31 Von 2 Russell /2016 [facility] Observation [id number] Tomas 03/08 03/10 Von 3 Vu /2017 [facility] Outpatient [id number] Shaquille 03/15 03/16 Von 4 [place] /2017 [facility] Bedded [id number] Boby Tawana 04/30 04/30 Von Outpatient [facility] Procedures Procedure Code Date Perfomer Comments Source Gastric bypass 052770030 [place] Hem[facility] 63175377 [place] Insertion of coronary 50066473 [place] artery stent Operation [id number] [place] Gastric bypass 8565834709 [place] Hemorrhoidectomy 88762117 [place] Insertion of coronary 8440187013 [place] artery stent Amputation<sup>1</sup 34591109 toe [place] > Foot 799119202 right foot [place] excision<sup>2</sup> surgery Operation<sup>3</sup> [id number] amputation of [place] 2nd and 5th toe in left foot Foot 758363230 right foot [place] excision<sup>1</sup> surgery Operation<sup>2</sup> [id number] amputation of [place] 2nd and 5th toe in left foot
--- OUTSIDE RECORDS SUMMARY | 2018-01-23 20:23 | XMS REPORT ---
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 Active Problem Osteomyelitis of right foot, M86.9 Active unspecified type Problem Dehiscence of amputation stump T87.81 Active Problem Abscess of foot L02.619 Active Problem Soft tissue mass M79.9 Active Problem Blister T14.8 Active Problem 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
--- OUTSIDE RECORDS SUMMARY | 2018-01-23 20:23 | XMS REPORT ---
:1945 Author Organization eClinicalWorks Care Team Providers Name Role Phone Genaro Pat Provider Role Unavailable Allergies, Adverse Reactions, Alerts Substance Reaction Event Type N.K.D.A. Info Not Available Non Drug Allergy Problems Problem Type Condition Code Onset Dates Condition Status Assessment Osteomyelitis of foot, right, acute M86.171 Active Assessment Sepsis A41.9 Active Assessment Non-pressure chronic ulcer of other L97.519 Active part of right foot with unspecified severity Assessment CRISTINA (acute kidney injury) N17.9 Active Assessment Neuropathy in diabetes E11.40 Active Medications Medication Code Code Instructions Start End Status Dosage System Date Date Valsartan [facility] [address]-82 320 MG Orally Active 1 tablet Once a day Metformin 500 mg Tab [facility] [address]-71 Active not defined atorvastatin 20 mg [facility] 56752312648 Active not Tab defined Gabapentin [facility] [address]-07 300 MG Orally Active 1 capsule Three times a day Hydrochlorothiazide [facility] [address]-61 25 MG Orally Active 1 tablet Three times a in the Week morning Amlodipine 10 mg Tab [facility] [address]-27 Active not defined clopidogrel 75 mg [facility] [address]-39 Active not tablet defined Aspir-81 [facility] [address]-71 81 MG Orally Active 1 tablet Once a day Fenofibrate [facility] [address]-50 145 MG Orally Active 1 tablet Once a day Doxycycline Hyclate [facility] [address]-31 100 MG Orally August 01Oct Active 1 capsule every 12 hrs 2016 Vital Signs Date/Time: August 01, 2016 BMI 39.33 Index Weight 290 lbs Height 72 in Temperature 98.2 F Cardiac Monitoring Heart Rate 115 /min Blood Pressure Diastolic 72 mm Hg Blood Pressure Systolic 142 mm Hg Results No Known Results Summary Purpose eClinicalWorks Submission
--- OUTSIDE RECORDS SUMMARY | 2018-01-23 20:23 | XMS REPORT ---
[...] Medications Results No Known Results Summary Purpose eClinicalFocal Point Energy Submission
--- OUTSIDE RECORDS SUMMARY | 2018-01-23 20:23 | XMS REPORT ---
:1945 Author Organization eClinicalWorks Care Team Providers Name Role Phone Arminda Aguilar Provider Role Unavailable Allergies, Adverse Reactions, Alerts Substance Reaction Event Type N.K.D.A. Info Not Available Non Drug Allergy Problems Problem Type Condition Code Onset Dates Condition Status Assessment Chronic osteomyelitis M86.60 Active Problem MRSA (methicillin resistant A49.02 Active Staphylococcus aureus) infection Assessment Foot infection L08.9 Active Assessment DM2 (diabetes mellitus, type 2) E11.9 Active Assessment CRISTINA (acute kidney injury) N17.9 Active Problem DM (diabetes mellitus) E11.9 Active Problem HTN (hypertension) I10 Active Problem Arthritis M19.90 Active Problem Hyperlipidemia E78.5 Active Problem Hypercholesterolemia E78.0 Active Problem CKD (chronic kidney disease) N18.9 Active Problem Heart disease I51.9 Active Medications Medication Code Code Instructions Start End Status Dosage System Date Date clopidogrel 75 mg [facility] [address]-20 Active not tablet defined Fenofibrate [facility] [address]-41 145 MG Orally Active 1 tablet Once a day Metformin 500 mg Tab [facility] [address]-98 Active not defined Valsartan [facility] [address]-08 320 MG Orally Active 1 tablet Once a day atorvastatin 20 mg [facility] 18765913554 Active not Tab defined Aspir-81 [facility] [address]-58 81 MG Orally Active 1 tablet Once a day Hydrochlorothiazide [facility] [address]-16 25 MG Orally Active 1 tablet Three times a in the Week morning Gabapentin [facility] [address]-70 300 MG Orally Active 1 capsule Three times a day Vantin NDC 0 200 MG Orally Sept Nov Active 1 tablet every 12 hrs 2016 Amlodipine 10 mg Tab [facility] [address]-87 Active not defined Vital Signs Date/Time: Nov 15, 2016 BMI 40.00 Index Weight 295 lbs Height 72 in Temperature 98.3 F Cardiac Monitoring Heart Rate 90 /min Blood Pressure Diastolic 81 mm Hg Blood Pressure Systolic 154 mm Hg Results No Known Results Summary Purpose eClinicalWorks Submission
--- OUTSIDE RECORDS SUMMARY | 2018-01-23 20:23 | XMS REPORT ---
[...] Start End Status Dosage System Date Date Amlodipine 10 mg Tab [facility] [address]-42 Active not defined clopidogrel 75 mg [facility] [address]-40 Active not tablet defined Valsartan [facility] [address]-42 320 MG Orally Active 1 tablet Once a day Gabapentin [facility] [address]-86 300 MG Orally Active 1 capsule Three times a day Fenofibrate [facility] [address]-04 145 MG Orally Active 1 tablet Once a day Aspir-81 [facility] [address]-04 81 MG Orally Active 1 tablet Once a day Metformin 500 mg Tab [facility] [address]-97 Active not defined Vantin NDC 0 200 MG Orally Active 1 tablet every 12 hrs Hydrochlorothiazide [facility] [address]-57 25 MG Orally Active 1 tablet Three times a in the Week morning atorvastatin 20 mg [facility] 79851746660 Active not Tab defined Vital Signs Date/Time: Nov 29, 2016 BMI 39.87 Index Weight 294 lbs Height 72 in Temperature 98.1 F Cardiac Monitoring Heart Rate 95 /min Blood Pressure Diastolic 58 mm Hg Blood Pressure Systolic 109 mm Hg Results No Known Results Summary Purpose eClinicalWorks Submission
--- OUTSIDE RECORDS SUMMARY | 2018-01-23 20:23 | XMS REPORT ---
[...] Medications Results No Known Results Summary Purpose eClinicalMedaNext Submission
--- OUTSIDE RECORDS SUMMARY | 2018-01-23 20:23 | XMS REPORT ---
:1945 Author Organization eClinicalWorks Care Team Providers Name Role Phone Genaro Pat Provider Role Unavailable Allergies, Adverse Reactions, Alerts Substance Reaction Event Type N.K.D.A. Info Not Available Non Drug Allergy Problems Problem Type Condition Code Onset Dates Condition Status Assessment Osteomyelitis of foot, right, acute M86.171 Active Assessment CRISTINA (acute kidney injury) N17.9 Active Assessment Non-pressure chronic ulcer of other L97.519 Active part of right foot with unspecified severity Assessment Neuropathy in diabetes E11.40 Active Medications Medication Code Code Instructions Start End Status Dosage System Date Date Metformin 500 mg Tab [facility] [address]-68 Active not defined Valsartan [facility] [address]-42 320 MG Orally Active 1 tablet Once a day clopidogrel 75 mg [facility] [address]-89 Active not tablet defined Fenofibrate [facility] [address]-03 145 MG Orally Active 1 tablet Once a day Aspir-81 [facility] [address]-62 81 MG Orally Active 1 tablet Once a day Doxycycline Hyclate [facility] [address]-25 100 MG Orally August 01Oct Active 1 capsule every 12 hrs 2016 Hydrochlorothiazide [facility] [address]-69 25 MG Orally Active 1 tablet Three times a in the Week morning Gabapentin [facility] [address]-72 300 MG Orally Active 1 capsule Three times a day atorvastatin 20 mg [facility] 84609394753 Active not Tab defined Amlodipine 10 mg Tab [facility] [address]-61 Active not defined Vital Signs Date/Time: September 12, 2016 BMI 39.33 Index Weight 290 lbs Height 72 in Temperature 97.8 F Cardiac Monitoring Heart Rate 66 /min Blood Pressure Diastolic 61 mm Hg Blood Pressure Systolic 129 mm Hg Results No Known Results Summary Purpose eClinicalWorks Submission
--- OUTSIDE RECORDS SUMMARY | 2018-01-23 20:23 | XMS REPORT ---
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
--- OUTSIDE RECORDS SUMMARY | 2018-01-23 20:23 | XMS REPORT ---
[...] Medications Results No Known Results Summary Purpose eClinicalAptito Submission
--- OUTSIDE RECORDS SUMMARY | 2018-01-23 20:23 | XMS REPORT ---
:1945 Author Organization eClinicalWorks Care Team Providers Name Role Phone Nik Pated Provider Role Unavailable Allergies, Adverse Reactions, Alerts Substance Reaction Event Type N.K.D.A. Info Not Available Non Drug Allergy Problems Problem Type Condition Code Onset Dates Condition Status Assessment CKD (chronic kidney disease) N18.9 Active Problem MRSA (methicillin resistant A49.02 Active Staphylococcus aureus) infection Assessment Foot infection L08.9 Active Assessment DM2 (diabetes mellitus, type 2) E11.9 Active Assessment Chronic osteomyelitis M86.60 Active Problem DM (diabetes mellitus) E11.9 Active Problem HTN (hypertension) I10 Active Problem Arthritis M19.90 Active Problem Hyperlipidemia E78.5 Active Problem Hypercholesterolemia E78.0 Active Problem CKD (chronic kidney disease) N18.9 Active Problem Heart disease I51.9 Active Medications Medication Code Code Instructions Start End Status Dosage System Date Date Vantin NDC 0 200 MG Orally Active 1 tablet every 12 hrs Aspir-81 [facility] [address]-57 81 MG Orally Active 1 tablet Once a day Metformin 500 mg Tab [facility] [address]-43 Active not defined Amlodipine 10 mg Tab [facility] [address]-39 Active not defined Fenofibrate [facility] [address]-97 145 MG Orally Active 1 tablet Once a day atorvastatin 20 mg [facility] 24514410372 Active not Tab defined Valsartan [facility] [address]-56 320 MG Orally Active 1 tablet Once a day Hydrochlorothiazide [facility] [address]-37 25 MG Orally Active 1 tablet Three times a in the Week morning Gabapentin [facility] [address]-05 300 MG Orally Active 1 capsule Three times a day Doxycycline Hyclate [facility] [address]-02 100 MG Orally Jan 09Mar Active 1 capsule Once a day 2016 clopidogrel 75 mg [facility] [address]-78 Active not tablet defined Vital Signs Date/Time: Jan 09, 2017 BMI 40.41 Index Weight 298 lbs Height 72 in Temperature 98.2 F Cardiac Monitoring Heart Rate 89 /min Blood Pressure Diastolic 94 mm Hg Blood Pressure Systolic 159 mm Hg Results No Known Results Summary Purpose eClinicalWorks Submission
--- OUTSIDE RECORDS SUMMARY | 2018-01-23 20:23 | XMS REPORT ---
[...] Dosage System Date Date clopidogrel 75 mg [facility] [address]-69 Active not tablet defined atorvastatin 20 mg [facility] 98181448801 Active not Tab defined Metformin 500 mg Tab [facility] [address]-70 Active not defined Hydrochlorothiazide [facility] [address]-67 25 MG Orally Active 1 tablet Three times a in the Week morning Aspir-81 [facility] [address]-52 81 MG Orally Active 1 tablet Once a day Amlodipine 10 mg Tab [facility] [address]-48 Active not defined Gabapentin [facility] [address]-11 300 MG Orally Active 1 capsule Three times a day Fenofibrate [facility] [address]-13 145 MG Orally Active 1 tablet Once a day Valsartan [facility] [address]-46 320 MG Orally Active 1 tablet Once a day Doxycycline Hyclate [facility] [address]-92 100 MG Orally August 01Oct Active 1 capsule every 12 hrs 2016 Vital Signs Date/Time: August 08, 2016 BMI 39.33 Index Weight 290 lbs Height 72 in Temperature 98.0 F Cardiac Monitoring Heart Rate 68 /min Blood Pressure Diastolic 73 mm Hg Blood Pressure Systolic 139 mm Hg Results No Known Results Summary Purpose eClinicalWorks Submission
--- OUTSIDE RECORDS SUMMARY | 2018-01-23 20:23 | XMS REPORT ---
[...] Medications Results No Known Results Summary Purpose eClinicalPathJump Submission
--- OUTSIDE RECORDS SUMMARY | 2018-01-23 20:23 | XMS REPORT ---
[...] aureus) infection Assessment Foot infection L08.9 Active Problem DM (diabetes mellitus) E11.9 Active Problem HTN (hypertension) I10 Active Problem Arthritis M19.90 Active Problem Hyperlipidemia E78.5 Active Problem Hypercholesterolemia E78.0 Active Problem CKD (chronic kidney disease) N18.9 Active Problem Heart disease I51.9 Active Assessment DM2 (diabetes mellitus, type 2) E11.9 Active Assessment Chronic osteomyelitis M86.60 Active Assessment DM (diabetes mellitus) E11.9 Active Medications Medication Code Code Instructions Start End Status Dosage System Date Date atorvastatin 20 mg [facility] 59311819421 Active not Tab defined clopidogrel 75 mg [facility] [address]-68 Active not tablet defined Metformin 500 mg Tab [facility] [address]-29 Active not defined Valsartan [facility] [address]-12 320 MG Orally Active 1 tablet Once a day Aspir-81 [facility] [address]-96 81 MG Orally Active 1 tablet Once a day Fenofibrate [facility] [address]-60 145 MG Orally Active 1 tablet Once a day Hydrochlorothiazide [facility] [address]-11 25 MG Orally Active 1 tablet Three times a in the Week morning Amlodipine 10 mg Tab [facility] [address]-48 Active not defined Vantin NDC 0 200 MG Orally Active 1 tablet every 12 hrs Gabapentin [facility] [address]-72 300 MG Orally Active 1 capsule Three times a day Vital Signs Date/Time: Dec 26, 2016 BMI 40.00 Index Weight 295 lbs Height 72 in Temperature 98.2 F Cardiac Monitoring Heart Rate 88 /min Blood Pressure Diastolic 87 mm Hg Blood Pressure Systolic 129 mm Hg Results No Known Results Summary Purpose eClinicalWorks Submission
--- OUTSIDE RECORDS SUMMARY | 2018-01-23 20:23 | XMS REPORT ---
[...] Start End Status Dosage System Date Date [facility] [address]-19 81 MG Orally Active 1 tablet Once a day atorvastatin 20 mg [facility] 64027511055 Active not Tab defined Metformin 500 mg Tab [facility] [address]-35 Active not defined Vantin NDC 0 200 MG Orally Active 1 tablet every 12 hrs clopidogrel 75 mg [facility] [address]-38 Active not tablet defined Fenofibrate [facility] [address]-89 145 MG Orally Active 1 tablet Once a day Hydrochlorothiazide [facility] [address]-63 25 MG Orally Active 1 tablet Three times a in the Week morning Valsartan [facility] [address]-45 320 MG Orally Active 1 tablet Once a day Gabapentin [facility] [address]-85 300 MG Orally Active 1 capsule Three times a day Amlodipine 10 mg Tab [facility] [address]-35 Active not defined Vital Signs Date/Time: Dec 19, 2016 BMI 40.00 Index Weight 295 lbs Height 72 in Temperature 98.0 F Cardiac Monitoring Heart Rate 90 /min Blood Pressure Diastolic 85 mm Hg Blood Pressure Systolic 131 mm Hg Results No Known Results Summary Purpose eClinicalWorks Submission
--- OUTSIDE RECORDS SUMMARY | 2018-01-23 20:23 | XMS REPORT ---
[...] Medications Results No Known Results Summary Purpose eClinicalZigfu Submission
--- OUTSIDE RECORDS SUMMARY | 2018-01-23 20:24 | XMS REPORT ---
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 Problem Diabetes II with Neuropathy 250.60 Active Problem Lower limb amputation, other V49.72 Active toe(s) Problem 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 . Answer: No Dec 30, 2014 Marital Status: . Dec 30, 2014 Do you exercise? . Answer: No Dec 30, 2014 Do you drink alcohol? . Status: No Dec 30, 2014 Occupation: . 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
--- OUTSIDE RECORDS SUMMARY | 2018-01-23 20:24 | XMS REPORT ---
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 Problem Ulcer of other part of foot 707.15 Active Problem Abscess - Foot/Heel 682.7 Active Problem Chronic osteomyelitis of toe, M86.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 . Answer: No Dec 30, 2014 Marital Status: . Dec 30, 2014 Do you exercise? . Answer: No Dec 30, 2014 Do you drink alcohol? . Status: No Dec 30, 2014 Occupation: . 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
--- OUTSIDE RECORDS SUMMARY | 2018-01-23 20:24 | XMS REPORT ---
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 . Answer: No September 23, 2014 Marital Status: . September 23, 2014 Do you exercise? . Answer: No September 23, 2014 Do you drink alcohol? . Status: No September 23, 2014 Occupation: . 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
--- OUTSIDE RECORDS SUMMARY | 2018-01-23 20:24 | XMS REPORT ---
:1945 Author Organization [employer] Care Team Providers Name Role Phone Nik Pated Provider Role Unavailable Allergies, Adverse Reactions, Alerts Substance Reaction Event Type N.K.D.A. Info Not Available Non Drug Allergy Problems Problem Type Condition Code Onset Dates Condition Status Assessment Chronic osteomyelitis M86.60 Active Problem Hyperlipidemia E78.5 Active Problem CKD (chronic kidney disease) N18.9 Active Problem Heart disease I51.9 Active Problem MRSA (methicillin resistant A49.02 Active Staphylococcus aureus) infection Problem Chronic osteomyelitis M86.60 Active Problem DM (diabetes mellitus) E11.9 Active Problem Arthritis M19.90 Active Problem Hypercholesterolemia E78.0 Active Problem HTN (hypertension) I10 Active Assessment CKD (chronic kidney disease) N18.9 Active Assessment DM (diabetes mellitus) E11.9 Active Assessment MRSA (methicillin resistant A49.02 Active Staphylococcus aureus) infection Medications Medication Code Code Instructions Start End Status Dosage System Date Date Valsartan [facility] 81688889153 320 MG Orally Active 1 tablet Once a day Hydrochlorothiazide [facility] 90113968330 25 MG Orally Active 1 tablet Three times a in the Week morning Amlodipine 10 mg Tab [facility] 15750032616 Active not defined Aspir-81 [facility] 37140780497 81 MG Orally Active 1 tablet Once a day atorvastatin 20 mg ND 85657052611 Active not Tab defined Gabapentin [facility] 83994192915 300 MG Orally Active 1 capsule Three times a day Fenofibrate [facility] 79051486428 145 MG Orally Active 1 tablet Once a day Vantin NDC 0 200 MG Orally Active 1 tablet every 12 hrs Doxycycline Hyclate [facility] 07637782367 100 MG Orally Jan 09Mar Active 1 capsule Once a day 2016 Clindamycin HCl [facility] 36219810511 150 MG Orally Active 2 capsules every 8 hrs clopidogrel 75 mg [facility] 98398376415 Active not tablet defined Metformin 500 mg Tab [facility] 49729772286 Active not defined Vital Signs Date/Time: Mar 06, 2017 BMI 42.04 Index Weight 310 lbs Height 72 in Temperature 97.3 F Cardiac Monitoring Heart Rate 76 /min Blood Pressure Diastolic 77 mm Hg Blood Pressure Systolic 155 mm Hg Results No Known Results Summary Purpose [employer] Submission
--- OUTSIDE RECORDS SUMMARY | 2018-01-23 20:24 | XMS REPORT ---
:1945 Author Organization [employer] Care Team Providers Name Role Phone Nik Pated Provider Role Unavailable Allergies, Adverse Reactions, Alerts Substance Reaction Event Type N.K.D.A. Info Not Available Non Drug Allergy Problems Problem Type Condition Code Onset Dates Condition Status Assessment Chronic osteomyelitis M86.60 Active Problem Hyperlipidemia E78.5 Active Problem CKD (chronic kidney disease) N18.9 Active Assessment CKD (chronic kidney disease) N18.9 Active Assessment DM (diabetes mellitus) E11.9 Active Problem Heart disease I51.9 Active Problem MRSA (methicillin resistant A49.02 Active Staphylococcus aureus) infection Problem Chronic osteomyelitis M86.60 Active Problem DM (diabetes mellitus) E11.9 Active Problem Arthritis M19.90 Active Problem Hypercholesterolemia E78.0 Active Problem HTN (hypertension) I10 Active Medications Medication Code Code Instructions Start End Status Dosage System Date Date Doxycycline Hyclate [facility] 54913612130 100 MG Orally Jan 09, Mar Active 1 capsule Once a day 2016 Amlodipine 10 mg Tab [facility] 02887327729 Active not defined Fenofibrate [facility] 60287713244 145 MG Orally Active 1 tablet Once a day Aspir-81 [facility] 43923585682 81 MG Orally Active 1 tablet Once a day Hydrochlorothiazide ND 22379433357 25 MG Orally Active 1 tablet Three times a in the Week morning Vantin NDC 0 200 MG Orally Active 1 tablet every 12 hrs Valsartan [facility] 16663596631 320 MG Orally Active 1 tablet Once a day clopidogrel 75 mg [facility] 72470414677 Active not tablet defined Gabapentin [facility] 24799759796 300 MG Orally Active 1 capsule Three times a day atorvastatin 20 mg Tab [facility] 81640677774 Active not defined Metformin 500 mg Tab [facility] 07619074551 Active not defined Cipro [facility] 44716023602 500 MG Orally Feb 13Feb Active 1 tablet Twice a day 2016 Vital Signs Date/Time: Feb 13, 2017 BMI 41.63 Index Weight 307 lbs Height 72 in Temperature 97.6 F Cardiac Monitoring Heart Rate 85 /min Blood Pressure Diastolic 72 mm Hg Blood Pressure Systolic 143 mm Hg Results No Known Results Summary Purpose [employer] Submission
--- OUTSIDE RECORDS SUMMARY | 2018-01-23 20:24 | XMS REPORT ---
:1945 Author Organization [employer] Care Team Providers Name Role Phone Genaro Pat Provider Role Unavailable Allergies No Known Allergies Problems Problem Type Condition Code Onset Dates Condition Status Assessment MRSA (methicillin resistant A49.02 Active Staphylococcus aureus) infection Problem Hyperlipidemia E78.5 Active Problem CKD (chronic kidney disease) N18.9 Active Assessment Chronic osteomyelitis M86.60 Active Problem Heart disease I51.9 Active Problem MRSA (methicillin resistant A49.02 Active Staphylococcus aureus) infection Problem Chronic osteomyelitis M86.60 Active Problem DM (diabetes mellitus) E11.9 Active Problem Arthritis M19.90 Active Problem Hypercholesterolemia E78.0 Active Problem HTN (hypertension) I10 Active Medications No Known Medications Results No Known Results Summary Purpose [email or web address] Submission
--- OUTSIDE RECORDS SUMMARY | 2018-01-23 20:24 | XMS REPORT ---
:1945 Author Organization [employer] Care Team Providers Name Role Phone Yasmany Hargrove Provider Role Unavailable Encounters Encounter Location Date Unknown [facility] Feb 03, 2015 Unknown [facility] Apr 20, 2016 sx may 16 [facility] Apr 25, 2016 Unknown [facility] Oct 18, 2014 Unknown [facility] Dec 02, 2014 FYI [facility] Jan 17, 2015 Problems Problem Type Condition ICD-9 Code Onset Dates Condition Status Problem Onychomycosis B35.1 Active Problem Cellulitis of left lower limb L03.116 Active Problem Chronic osteomyelitis of toe, 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 . Answer: No Apr 12, 2016 Marital Status: . Apr 12, 2016 Do you exercise? . Answer: No Apr 12, 2016 Do you drink alcohol? . Status: No Apr 12, 2016 Occupation: . 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
--- OUTSIDE RECORDS SUMMARY | 2018-01-23 20:24 | XMS REPORT ---
:1945 Author Organization [employer] Care Team Providers Name Role Phone Yasmany Hargrove Provider Role Unavailable Encounters Encounter Location Date Unknown [facility] Feb 03, 2015 Unknown [facility] Apr 20, 2016 Unknown [facility] Oct 18, 2014 Unknown [facility] Dec 02, 2014 FYI [facility] Jan 17, 2015 Problems Problem [...]
--- OUTSIDE RECORDS SUMMARY | 2018-01-23 20:24 | XMS REPORT | CCD ---
:1945 Author Organization [facility] Care Team Providers Name Role Phone Adonay Paul Consulting Provider Allergies, Adverse Reactions, Alerts Substance Reaction Status NKDA Active Problem List Condition Effective Dates Status dm2 Active HTN - Hypertension Active Hyperlipidemia Active Neuropathy Active Medications Medication Instructions Start Date End Date Status valsartan 160 mg, Route: PO, 05/21/2012 05/20/2012 Canceled Drug form: TAB, Daily, Dosing Weight 129.545, kg, Start date: 05/21/12 9:00:00, Duration: 30 day, Stop date: 06/19/12 9:00:00 hydrochlorothiazide 25 mg, 1 tab, Route: 05/21/2012 05/27/2012 Discontinued PO, Drug form: TAB, Daily, Dosing Weight 129.545, kg, Start date: 05/21/12 9:00:00, Duration: 30 day, Stop date: 06/19/12 9:00:00 amLODipine 10 mg, Route: PO, 05/21/2012 05/20/2012 Canceled Drug form: TAB, Daily, Dosing Weight 129.545, kg, Start date: 05/21/12 9:00:00, Duration: 30 day, Stop date: 06/19/12 9:00:00 Zosyn 3.375 gm, Route: 05/19/2012 05/20/2012 Completed IVPB, ONCE, Dosing Weight 129.091, kg, Priority: STAT, Start date: 05/19/12 21:39:00, Stop date: 05/19/12 21:39:00 enoxaparin 40 mg, 0.4 mL, Route: 05/20/2012 05/27/2012 Discontinued SUB-Q, Drug form: INJ, [id number], Dosing Weight 129.545, kg, Start date: 05/20/12 17:00:00, Duration: 30 day, Stop date: 06/18/12 17:00:00 vancomycin 1 gm, 200 mL, Route: 05/20/2012 05/27/2012 Discontinued IVPB, Drug form: INJ, [id number], Start date: 05/20/12 3:00:00, Duration: 30 day, Stop date: 06/18/12 15:00:00 metFORmin 500 mg oral tablet 500 mg, 1 tab, Route: 05/20/2012 05/25/2012 Discontinued PO, Drug form: TAB, BID-Meals, Dosing Weight 129.545, kg, Start date: 05/20/12 17:00:00, Duration: 30 day, Stop date: 06/19/12 8:00:00 gabapentin 300 mg oral 300 mg, 1 cap, Route: 05/20/2012 05/27/2012 Discontinued capsule PO, Drug form: CAP, BID, Dosing Weight 129.545, kg, Start date: 05/20/12 17:00:00, Duration: 30 day, Stop date: 06/19/12 9:00:00 lactobacillus acidophilus 1 cap, Route: PO, 05/21/2012 05/21/2012 Deleted Drug Form: CAP, Dosing Weight 129.545, kg, Daily, Start date: 05/21/12 9:00:00, Duration: 30 day, Stop date: 06/19/12 9:00:00 lactobacillus rhamnosus GG 80 mg, 1 cap, Route: 05/21/2012 05/27/2012 Discontinued PO, Drug Form: CAP, Daily, Start date: 05/21/12 9:00:00, Duration: 30 day, Stop date: 06/19/12 9:00:00 Plavix 75 mg, 1 tab, Route: 05/21/2012 05/27/2012 Discontinued PO, Drug form: TAB, Daily, Dosing Weight 129.545, kg, Start date: 05/21/12 9:00:00, Duration: 30 day, Stop date: 06/19/12 9:00:00 aspirin 325 mg tablet 325 mg, 1 tab, Route: 05/20/2012 05/27/2012 Discontinued PO, Drug form: TAB, Q24H, Dosing Weight 129.545, kg, Start date: 05/20/12 17:00:00, Duration: 30 day, Stop date: 06/18/12 17:00:00 Lipitor 20 mg, 2 tab, Route: 05/20/2012 05/27/2012 Discontinued PO, Drug form: TAB, QPM, Dosing Weight 129.545, kg, Start date: 05/20/12 17:00:00, Duration: 30 day, Stop date: 06/18/12 17:00:00 Protonix 40 mg, 1 tab, Route: 05/22/2012 05/27/2012 Discontinued PO, Drug form: ECTAB, Before Breakfast, Dosing Weight 129.545, kg, Start date: 05/22/12 7:30:00, Duration: 30 day, Stop date: 06/20/12 7:30:00 hydrochlorothiazide-valsartan Route: PO, Dosing 05/21/2012 05/20/2012 Canceled 12.5 mg-80 mg oral tablet Weight 129.545, kg, Daily, Start date: 05/21/12 9:00:00, Duration: 30 day, Stop date: 06/19/12 9:00:00 pantoprazole 40 mg oral 40 mg, 1 tab, PO, 05/27/2012 Ordered enteric coated tablet Before Breakfast, 30 tab, Substitution Allowed, ECTAB valsartan 160 mg oral tablet 160 mg, 1 tab, PO, 05/27/2012 Ordered Daily, 30 tab, Substitution Allowed, TAB lactobacillus rhamnosus GG 80 1 cap, PO, Daily, 30 05/27/2012 Ordered mg oral capsule cap, Substitution Allowed, Maintenance, CAP Insulin Aspart 100 unit/ml - 5 unit, 0.05 mL, 05/27/2012 Ordered (High CD) SUB-Q, TID-Before Meals, PRN, 30 mL, Blood Glucose Results, Substitution Allowed, SOLN Insulin Aspart 100 unit/ml - 4 unit, 0.04 mL, 05/27/2012 Ordered (High CD) SUB-Q, TID-Before Meals, PRN, 30 mL, Blood Glucose Results, Substitution Allowed, SOLN Insulin Aspart 100 unit/ml - 3 unit, 0.03 mL, 05/27/2012 Ordered (High CD) SUB-Q, TID-Before Meals, PRN, 30 mL, Blood Glucose Results, Substitution Allowed, SOLN Insulin Aspart 100 unit/ml - 2 unit, 0.02 mL, 05/27/2012 Ordered (High CD) SUB-Q, TID-Before Meals, PRN, 30 mL, Blood Glucose Results, Substitution Allowed, SOLN hydrochlorothiazide 25 mg 25 mg, 1 tab, PO, 05/27/2012 Ordered oral tablet Daily, 30 tab, Substitution Allowed, TAB Insulin Aspart 100 unit/ml - 1 unit, 0.01 mL, 05/27/2012 Ordered (High CD) SUB-Q, TID-Before Meals, PRN, 30 mL, Blood Glucose Results, Substitution Allowed, SOLN amLODipine 5 mg oral tablet 10 mg, 2 tab, PO, 05/27/2012 Ordered Daily, 30 tab, Substitution Allowed, TAB Lipitor 20 mg oral tablet 20 mg, 1 tab, PO, 05/20/2012 Ordered Daily, 30 tab, Substitution Allowed, TAB aspirin 325 mg tablet 325 mg, 1 tab, PO, 05/20/2012 Ordered Daily, Substitution Allowed, TAB metFORmin 500 mg oral tablet, 500 mg, 1 tab, PO, 05/20/2012 Ordered extended release BID, Substitution Allowed, TAB Plavix 75 mg oral tablet 75 mg, 1 tab, PO, 05/20/2012 Ordered Daily, 30 tab, Substitution Allowed, TAB Exforge HCT 10 mg-320 mg-25 1 tab, PO, Daily, 30 05/20/2012 05/20/2012 Discontinued mg oral tablet tab, Substitution Allowed, Maintenance, TAB gabapentin 300 mg oral 300 mg, 1 cap, PO, 05/20/2012 Ordered capsule BID, Substitution Allowed, CAP metFORmin 850 mg oral tablet 850 mg, 1 tab, Route: 05/25/2012 05/27/2012 Discontinued PO, Drug form: TAB, BID-Meals, Dosing Weight 129.545, kg, Start date: 05/25/12 17:00:00, Duration: 30 day, Stop date: 06/24/12 8:00:00 cefepime + Sodium Chloride 1 gm, Route: IVPB, 05/24/2012 05/27/2012 Discontinued 0.9% IV 100 mL [id number], Dosing Weight 129.545, kg, (CrCl 30 - 49 ml/min), Start date: 05/24/12 22:00:00, Duration: 30 day, Stop date: 06/23/12 10:00:00 Zosyn 3.375 gm, 100 mL, 05/20/2012 05/24/2012 Discontinued Route: IVPB, Drug form: PDR/INJ, [id number], Dosing Weight 129.091, kg, Priority: STAT, Start date: 05/20/12 2:20:00, Duration: 30 day, Stop date: 06/18/12 18:00:00 glucagon 1 mg, Route: IM, Drug 05/20/2012 05/27/2012 Discontinued form: PDR/INJ, PRN, Dosing Weight 129.545, kg, PRN Blood Glucose Results, Start date: 05/20/12 2:15:00, Duration: 30 day, Stop date: 06/19/12 2:14:00 Dextrose 50% Syringe 12.5 gm, 25 mL, 05/20/2012 05/27/2012 Discontinued Route: IVP, Drug Form: INJ, Dosing Weight 129.545, kg, PRN, PRN Blood Glucose Results, Start date: 05/20/12 2:15:00, Duration: 30 day, Stop date: 06/19/12 2:14:00 Dextrose 50% Syringe 25 gm, 50 mL, Route: 05/20/2012 05/27/2012 Discontinued IVP, Drug Form: INJ, Dosing Weight 129.545, kg, PRN, PRN Blood Glucose Results, Start date: 05/20/12 2:15:00, Duration: 30 day, Stop date: 06/19/12 2:14:00 insulin aspart 5 unit, 0.05 mL, 05/20/2012 05/27/2012 Discontinued Route: SUB-Q, Drug form: SOLN, TID-Before Meals, Dosing Weight 129.545, kg, PRN Blood Glucose Results, Start date: 05/20/12 2:15:00, Duration: 30 day, Stop date: 06/19/12 2:14:00 insulin aspart 4 unit, 0.04 mL, 05/20/2012 05/27/2012 Discontinued Route: SUB-Q, Drug form: SOLN, TID-Before Meals, Dosing Weight 129.545, kg, PRN Blood Glucose Results, Start date: 05/20/12 2:15:00, Duration: 30 day, Stop date: 06/19/12 2:14:00 insulin aspart 3 unit, 0.03 mL, 05/20/2012 05/27/2012 Discontinued Route: SUB-Q, Drug form: SOLN, TID-Before Meals, Dosing Weight 129.545, kg, PRN Blood Glucose Results, Start date: 05/20/12 2:15:00, Duration: 30 day, Stop date: 06/19/12 2:14:00 insulin aspart 2 unit, 0.02 mL, 05/20/2012 05/27/2012 Discontinued Route: SUB-Q, Drug form: SOLN, TID-Before Meals, Dosing Weight 129.545, kg, PRN Blood Glucose Results, Start date: 05/20/12 2:15:00, Duration: 30 day, Stop date: 06/19/12 2:14:00 insulin aspart 1 unit, 0.01 mL, 05/20/2012 05/27/2012 Discontinued Route: SUB-Q, Drug form: SOLN, TID-Before Meals, Dosing Weight 129.545, kg, PRN Blood Glucose Results, Start date: 05/20/12 2:15:00, Duration: 30 day, Stop date: 06/19/12 2:14:00 valsartan 160 mg, 1 tab, Route: 05/20/2012 05/27/2012 Discontinued PO, Drug form: TAB, Daily, Dosing Weight 129.545, kg, Priority: STAT, Start date: 05/20/12 15:57:00, Duration: 30 day, Stop date: 06/19/12 9:00:00 amLODipine 10 mg, 2 tab, Route: 05/20/2012 05/27/2012 Discontinued PO, Drug form: TAB, Daily, Dosing Weight 129.545, kg, Priority: STAT, Start date: 05/20/12 15:57:00, Duration: 30 day, Stop date: 06/19/12 9:00:00 vancomycin 1 g intravenous 1 gm, IV, Q12H, 20 05/27/2012 Ordered injection doses or times, Substitution Allowed lactobacillus acidophilus 1 cap, Route: PO, 05/25/2012 05/25/2012 Deleted Drug Form: CAP, Dosing Weight 129.545, kg, Daily, Start date: 05/25/12 9:00:00, Duration: 30 day, Stop date: 06/23/12 9:00:00 Vital Signs Most recent to oldest 1 2 3 [Reference Range]: Height 182.88 cm 182.88 cm (05/20/2012 02:10:00) (05/19/2012 16:27:00) Temperature Oral 97.6 DegF 97.9 DegF 97.4 DegF [96.4-99.1 DegF] (05/27/2012 16:00:00) (05/27/2012 12:00:00) (05/27/2012 08: 00:00) Systolic Blood Pressure 136 mmHg 132 mmHg 144 mmHg [90-140 mmHg] (05/27/2012 16:00:00) (05/27/2012 12:00:00) *HI* (05/27/2012 08:00:00) Diastolic Blood Pressure 79 mmHg 79 mmHg 90 mmHg [60-90 mmHg] (05/27/2012 16:00:00) (05/27/2012 12:00:00) (05/27/2012 08:00: 00) Respiratory Rate [14-20 20 BRMIN 20 BRMIN 20 BRMIN BRMIN] (05/27/2012 16:00:00) (05/27/2012 12:00:00) (05/27/2012 08:00:00) Peripheral Pulse Rate 70 bpm 70 bpm 71 bpm [60-100 bpm] (05/27/2012 16:00:00) (05/27/2012 12:00:00) (05/27/2012 08:00: 00) Weight 129.545 kg 129.091 kg (05/20/2012 02:10:00) (05/19/2012 16:27:00) Results BEDSIDE GLUCOSE TESTING Most recent to oldest 1 2 3 [Reference Range]: Gluc POC Lifscn [70-99 156 mg/dL 1 166 mg/dL 2 148 mg/dL 3 mg/dL] *HI* *HI* *HI* (05/27/2012 15:46:00) (05/27/2012 11:03:00) (05/27/2012 05:43:00) Comment1 Notify RN/MD Notify RN/MD Notify RN/MD *NA* *NA* *NA* (05/27/2012 15:46:00) (05/27/2012 11:03:00) (05/27/2012 05:43:00) 1Interpretive Data: Upper Reportable Limit: 200 mg/dL.2Interpretive Data: Upper Reportable Limit: 200 mg/dL.3Interpretive Data: Upper Reportable Limit: 200 mg/dL.CHEMISTRY Most recent to oldest [Reference 1 2 3 Range]: Sodium Lvl [135-145 mEq/L] 140 mEq/L 140 mEq/L (05/25/2012 02:39:00) (05/19/2012 22:26:00) Potassium Lvl [3.5-5.1 mEq/L] 3.9 mEq/L 3.7 mEq/L (05/25/2012 02:39:00) (05/19/2012 22:26:00) Chloride Lvl [95-109 mEq/L] 103 mEq/L 99 mEq/L (05/25/2012 02:39:00) (05/19/2012 22:26:00) CO2 [24-32 mEq/L] 32 mEq/L 31 mEq/L (05/25/2012 02:39:00) (05/19/2012 22:26:00) AGAP [10.0-20.0 mEq/L] 8.9 mEq/L 13.7 mEq/L *LOW* (05/19/2012 22:26:00) (05/25/2012 02:39:00) Creatinine Lvl [0.5-1.4 mg/dL] 0.9 mg/dL 1.0 mg/dL (05/25/2012 02:39:00) (05/19/2012 22:26:00) eGFR 88 mL/min/1.73m2 4 78 mL/min/1.73m2 5 *NA* *NA* (05/25/2012 02:39:00) (05/19/2012 22:26:00) BUN [7-22 mg/dL] 10 mg/dL 15 mg/dL (05/25/2012 02:39:00) (05/19/2012 22:26:00) B/C Ratio [6-25] 11 (05/25/2012 02:39:00) Glucose Lvl [70-99 mg/dL] 117 mg/dL 6 142 mg/dL 7 *HI* *HI* (05/25/2012 02:39:00) (05/19/2012 22:26:00) Total Protein [6.4-8.4 g/dL] 7.7 g/dL (05/25/2012 02:39:00) Albumin Lvl [3.5-5.0 g/dL] 3.9 g/dL (05/25/2012 02:39:00) Globulin [2.0-4.0 g/dL] 3.8 g/dL (05/25/2012 02:39:00) A/G Ratio [0.7-1.6] 1.0 (05/25/2012 02:39:00) Calcium Lvl [8.5-10.5 mg/dL] 9.2 mg/dL 9.6 mg/dL (05/25/2012 02:39:00) (05/19/2012 22:26:00) ALT [0-65 unit/L] 58 unit/L (05/25/2012 02:39:00) AST [0-37 unit/L] 32 unit/L (05/25/2012 02:39:00) Alk Phos [39-136 unit/L] 74 unit/L (05/25/2012 02:39:00) Bili Total [0.2-1.3 mg/dL] 0.5 mg/dL (05/25/2012 02:39:00) Hgb A1C 7.9 % 8 *NA* (05/21/2012 08:27:00) Vanco Tr TND 0300 0300 *NA* *NA* (05/25/2012 02:39:00) (05/21/2012 02:45:00) Vanco Tr 12.7 ug/ml 9 7.9 ug/ml 10 *NA* *NA* (05/25/2012 02:39:00) (05/21/2012 02:45:00) 4Result Comment: The eGFR is calculated using the CKD-EPI formula. In most young , healthy individualsthe eGFR will be >90 mL/min/1.73m2. The eGFR declines with age. An eGFR of 60-89 may be normal in some populations, particularly the elderly, for whom the CKD-EPI formula has not been extensively validated. Use of the eGFR is not recommended in the following populations: Individuals with unstable creatinine concentrations, including patients and those with serious co-morbid conditions. Patients with extremes in muscle mass or diet. The data above are obtained from the National Kid[employer] Disease Education Program ( NKDEP) which additionally recommends that when the eGFR is used in patients with extremes of body mass index for purposesof drug dosing, the eGFR should be multiplied by the estimated BMI.5Result Comment: The eGFR is calculated using the CKD-EPI formula. In most young, healthy individualsthe eGFR will be >90 mL/ min/1.73m2. The eGFR declines with age. An eGFR of 60-89 may be normal in some populations, particularly the elderly, for whom the CKD-EPI formula has not been extensively validated. Use of the eGFR is not recommended in the following populations: Individuals with unstable creatinine concentrations, including patients and those with serious co-morbid conditions. Patients with extremes in muscle mass or diet. The data above are obtained from the National Kid[employer] Disease Education Program ( NKDEP) which additionally recommends that when the eGFR is used in patients with extremes of body mass index for purposesof drug dosing, the eGFR should be multiplied by the estimated BMI.6Interpretive Data: Adult reference range values reflect the clinical guidelines of the [place] [employer].7Interpretive Data: Adult reference range values reflect the clinical guidelines of the [place] [employer].8Interpretive Data: HbA1C% eAG(mg/dL ) Interpretation 6.0 126 Very good control 6.5 140 Very good control 7.0 154 Good Control 7.5 169 Good Control 8.0 183 Marginal Control, take action to lower 8.5 197 Marginal Control, take action to lower 9.0 212 Poor Control, take action to lower 9.5 226 Poor Control, take action to lower 10.0 240 Poor Control, take action to [id number] Data: Therapeutic Range: Trough: 10 - 20 ug/mL Peak: 20 - 40 ug/mL Potential Toxicity: >80 ug/[id number] Data: Therapeutic Range: Trough: 10 - 20 ug/mL Peak: 20 - 40 ug/mL Potential Toxicity: >80 ug/mLHEMATOLOGY Most recent to oldest [Reference 1 2 3 Range]: WBC [3.7-10.4 K/CMM] 8.8 K/CMM 6.7 K/CMM (05/25/2012 02:39:00) (05/19/2012 22:26:00) RBC [4.70-6.10 M/CMM] 4.96 M/CMM 5.19 M/CMM (05/25/2012 02:39:00) (05/19/2012 22:26:00) Hgb [14.0-18.0 g/dL] 14.3 g/dL 14.6 g/dL (05/25/2012 02:39:00) (05/19/2012 22:26:00) Hct [42.0-54.0 %] 43.1 % 44.9 % (05/25/2012 02:39:00) (05/19/2012 22:26:00) MCV [80.0-94.0 fL] 87.0 fL 86.5 fL (05/25/2012 02:39:00) (05/19/2012 22:26:00) MCH [27.0-31.0 pg] 28.9 pg 28.1 pg (05/25/2012 02:39:00) (05/19/2012 22:26:00) MCHC [32.0-36.0 g/dL] 33.2 g/dL 32.5 g/dL (05/25/2012 02:39:00) (05/19/2012 22:26:00) RDW [11.5-14.5 %] 14.0 % 14.3 % (05/25/2012 02:39:00) (05/19/2012 22:26:00) Platelet [133-450 K/CMM] 269 K/CMM 266 K/CMM (05/25/2012 02:39:00) (05/19/2012 22:26:00) MPV [7.4-10.4 fL] 7.1 fL 7.2 fL *LOW* *LOW* (05/25/2012 02:39:00) (05/19/2012 22:26:00) Segs [45.0-75.0 %] 52.0 % 53.0 % (05/25/2012 02:39:00) (05/19/2012 22:26:00) Lymphocytes [20.0-40.0 %] 36.1 % 32.8 % (05/25/2012 02:39:00) (05/19/2012 22:26:00) Monocytes [2.0-12.0 %] 9.6 % 12.9 % (05/25/2012 02:39:00) *HI* (05/19/2012 22:26:00) Eosinophils [0.0-4.0 %] 1.8 % 0.9 % (05/25/2012 02:39:00) (05/19/2012 22:26:00) Basophils [0.0-1.0 %] 0.5 % 0.4 % (05/25/2012 02:39:00) (05/19/2012 22:26:00) Segs-Bands # [1.5-8.1 K/CMM] 4.6 K/CMM 3.6 K/CMM (05/25/2012 02:39:00) (05/19/2012 22:26:00) Lymphocytes # [1.0-5.5 K/CMM] 3.2 K/CMM 2.2 K/CMM (05/25/2012 02:39:00) (05/19/2012 22:26:00) Monocytes # [0.0-0.8 K/CMM] 0.8 K/CMM 0.9 K/CMM (05/25/2012 02:39:00) *HI* (05/19/2012 22:26:00) Eosinophils # [0.0-0.5 K/CMM] 0.2 K/CMM 0.1 K/CMM (05/25/2012 02:39:00) (05/19/2012 22:26:00) Basophils # [0.0-0.2 K/CMM] 0.0 K/CMM 0.0 K/CMM (05/25/2012 02:39:00) (05/19/2012 22:26:00) PT [12.0-14.7 seconds] 13.7 seconds (05/19/2012 22:26:00) INR [0.85-1.17] 1.03 11 (05/19/2012 22:26:00) PTT [22.9-35.8 seconds] 30.9 seconds 12 (05/19/2012 22:26:00) 11Interpretive Data: RECOMMENDED RANGES FOR PROTIME INR: 2.0-3.0 for most medical and surgical thromboembolic states. 2.5-3.5 for artificial heart valves and recurrent embolism. INR SHOULD BE USED ONLY FOR PATIENTS ON STABLE ANTICOAGULANT THERAPY.12Interpretive Data: Heparin Therapeutic Range: 57 - 92 Seconds
--- OUTSIDE RECORDS SUMMARY | 2018-01-23 20:24 | XMS REPORT ---
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 Problem Charcot foot due to diabetes E11.610 Active mellitus Problem Abscess of foot L02.619 Active Problem Absence of toe of left foot Z89.422 Active Problem 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
--- OUTSIDE RECORDS SUMMARY | 2018-01-23 20:25 | XMS REPORT | CCD ---
:1945 Author Organization [facility] Care Team Providers Name Role Phone Adonay Paul Consulting Provider Allergies, Adverse Reactions, Alerts Substance Reaction Status NKDA Active Problem List Condition Effective Dates Status dm2 Active HTN - Hypertension Active Hyperlipidemia Active Neuropathy Active Medications Medication Instructions Start Date End Date Status Saline Flush 0.9% 5 mL, Route: IVP, Drug 07/08/2012 07/09/2012 Discontinued Form: INJ, Dosing Weight 131.818, kg, PRN, PRN Line Flush, Start date: 07/08/12 23:54:00, Duration: 30 day, Stop date: 08/07/12 23:53:00 Sodium Chloride 0.9% (Bolus) 1,000 mL, Rate: 1,000 07/08/2012 07/09/2012 Completed IV 1,000 mL ml/hr, Infuse over: 1 hr, Route: IV, kg, Total Volume: 1,000, Priority: STAT, Start date: 07/08/12 23:54:00, Duration: 1 doses or times, Stop date: 07/09/12 0:53:00 vancomycin 1,000 mg, 200 mL, 07/08/2012 07/09/2012 Completed Route: IVPB, Drug form: INJ, ONCE, Dosing Weight 131.818, kg, Priority: STAT, Start date: 07/08/12 23:54:00, Stop date: 07/08/12 23:54:00 piperacillin-tazobactam + 4.5 gm, Route: IVPB, 07/08/2012 07/09/2012 Discontinued Sodium Chloride 0.9% IV 100 ONCE, Dosing Weight mL 131.818, kg, Priority: STAT, Start date: 07/08/12 23:54:00, Stop date: 07/08/12 23:54:00 ondansetron 4 mg, Route: IVP, 07/10/2012 07/10/2012 Completed ONCE, Dosing Weight 131, kg, PRN Nausea & Vomiting, Start date: 07/10/12 13:12:00 flumazenil 0.2 mg, 2 mL, Route: 07/10/2012 07/10/2012 Discontinued IVP, Drug form: INJ, PRN, Dosing Weight 131, kg, PRN Benzodiazepine Reversal, Initial dose, Start date: 07/10/12 13:12:00, Duration: 30 day, Stop date: 08/09/12 13:11:00 naloxone 0.04 mg, 0.1 mL, 07/10/2012 07/10/2012 Discontinued Route: IVP, Drug form: INJ, Q2MIN, Dosing Weight 131, kg, PRN Narcotic Reversal, Start date: 07/10/12 13:12:00, Duration: 8 doses or times, Stop date: Limited # of times fentanyl 25 microgram, 0.5 mL, 07/10/2012 07/10/2012 Completed Route: IVP, Drug form: INJ, Q5Min, Dosing Weight 131, kg, PRN Pain Score 4-6, Start date: 07/10/12 13:12:00, Duration: 4 doses or times, Stop date: Limited # of times hydromorphone 0.5 mg, 0.5 mL, Route: 07/10/2012 07/10/2012 Discontinued IVP, Drug form: SOLN, Q5Min, Dosing Weight 131, kg, PRN Pain Score 4-6, Start date: 07/10/12 13:12:00, Duration: 5 doses or times, Stop date: Limited # of times acetaminophen-hydrocodone 1 tab, Route: PO, Drug 07/10/2012 07/10/2012 Discontinued 325 mg-5 mg oral tablet Form: TAB, Dosing Weight 131, kg, Q4H, PRN Pain Score 1-3, Start date: 07/10/12 13:12:00, Duration: 30 day, Stop date: 08/09/12 13:11:00 acetaminophen-hydrocodone 2 tab, Route: PO, Drug 07/10/2012 07/10/2012 Discontinued 325 mg-5 mg oral tablet Form: TAB, Dosing Weight 131, kg, Q4H, PRN Pain Score 4-6, Start date: 07/10/12 13:12:00, Duration: 30 day, Stop date: 08/09/12 13:11:00 Lactated Ringers Injection 1,000 mL, Rate: 50 07/10/2012 07/10/2012 Discontinued IV 1,000 mL ml/hr, Infuse over: 20 hr, Route: IV, Dosing Weight 131 kg, Total Volume: 1,000, Start date: 07/10/12 13:12:00, Duration: 30 day, Stop date: 08/09/12 13:11:00 Lactated Ringers Injection 1,000 mL, Rate: 25 07/10/2012 07/10/2012 Discontinued IV 1,000 mL ml/hr, Infuse over: 40 hr, Route: IV, Dosing Weight 131 kg, Total Volume: 1,000, Start date: 07/10/12 12:28:00, Duration: 30 day, Stop date: 08/09/12 12:27:00 morphine Sulfate 1 mg, 0.5 mL, Route: 07/10/2012 07/13/2012 Discontinued IV, Drug form: INJ, Q4H, Dosing Weight 131, kg, PRN Pain Score 4-6, Start date: 07/10/12 20:10:00, Duration: 30 day, Stop date: 08/09/12 20:09:00, pain level > 3 Norvasc 10 mg, 2 tab, Route: 07/12/2012 07/13/2012 Discontinued PO, Drug form: TAB, Daily, Start date: 07/12/12 9:00:00, Duration: 30 day, Stop date: 08/10/12 9:00:00 morphine Sulfate 2 mg, 1 mL, Route: 07/10/2012 07/13/2012 Discontinued IVP, Drug form: INJ, Q4H, Dosing Weight 131, kg, PRN Pain Score 6-10, Start date: 07/10/12 20:09:00, Stop date: 08/09/12 20:08:00, pain level >5 Glucophage 500 mg oral 500 mg, 1 tab, Route: 07/09/2012 07/09/2012 Discontinued tablet PO, Drug form: TAB, BID, Dosing Weight 131, kg, Start date: 07/09/12 9:00:00, Duration: 30 day, Stop date: 08/07/12 17:00:00 gabapentin 300 mg oral 300 mg, 1 cap, Route: 07/09/2012 07/13/2012 Discontinued capsule PO, Drug form: CAP, BID, Dosing Weight 131, kg, Start date: 07/09/12 9:00:00, Duration: 30 day, Stop date: 08/07/12 17:00:00 Lipitor 20 mg, 2 tab, Route: 07/09/2012 07/13/2012 Discontinued PO, Drug form: TAB, QPM, Dosing Weight 131, kg, Start date: 07/09/12 17:00:00, Duration: 30 day, Stop date: 08/07/12 17:00:00 Antara 130mg po daily*Pts Antara 130mg po 07/12/2012 07/13/2012 Discontinued own med* daily*Pts own med*, 130 mg, Drug form: MISC, Route: PO, Daily, 07/12/12 9:00:00, Duration: 30 day, Stop date: 08/10/12 9:00:00 nitroglycerin 0.4 mg 0.4 mg, 1 tab, Route: 07/09/2012 07/12/2012 Discontinued sublingual tablet SL, Drug form: TAB, Q5Min, PRN Chest Pain, Start date: 07/09/12 4:21:00, Duration: 30 day, Stop date: 08/08/12 4:20:00 atropine 0.5 mg, 5 mL, Route: 07/09/2012 07/12/2012 Discontinued IVP, Drug form: INJ, PRN, PRN Bradycardia, Start date: 07/09/12 4:21:00, Duration: 30 day, Stop date: 08/08/12 4:20:00 Saline Flush 0.9% 5 ml, Route: IVP, Drug 07/10/2012 07/13/2012 Discontinued Form: INJ, Dosing Weight 131, kg, Q12H, Start date: 07/10/12 21:00:00, Duration: 30 day, Stop date: 08/09/12 9:00:00 Saline Flush 0.9% 5 ml, Route: IVP, Drug 07/10/2012 07/13/2012 Discontinued Form: INJ, Dosing Weight 131, kg, PRN, PRN Line Flush, Start date: 07/10/12 13:16:00, Duration: 30 day, Stop date: 08/09/12 13:15:00 Ideal 5/325 oral tablet 1 tab, PO, Q4-6H, PRN, 07/13/2012 Ordered 20 tab, as needed for pain, Substitution Allowed, Maintenance Zosyn 3.375 gm, 100 mL, 07/09/2012 07/13/2012 Discontinued Route: IVPB, Drug form: PDR/INJ, [id number], Dosing Weight 131.818, kg, Priority: STAT, Start date: 07/09/12 4:12:00, Duration: 30 day, Stop date: 08/07/12 22:12:00 Zofran 4 mg, Route: IVP, Drug 07/09/2012 07/09/2012 Completed form: INJ, ONCE, Dosing Weight 131.818, kg, Priority: STAT, Start date: 07/09/12 1:11:00, Stop date: 07/09/12 1:11:00 morphine Sulfate 4 mg, Route: IVP, Drug 07/09/2012 07/09/2012 Completed form: INJ, ONCE, Dosing Weight 131.818, kg, Priority: STAT, Start date: 07/09/12 1:11:00, Stop date: 07/09/12 1:11:00 vancomycin 1 gm, 200 mL, Route: 07/09/2012 07/13/2012 Discontinued IVPB, Drug form: INJ, [id number], Dosing Weight 131.818, kg, Priority: STAT, Start date: 07/09/12 4:12:00, Stop date: 08/07/12 14:30:00 ondansetron 4 mg, 2 mL, Route: 07/09/2012 07/13/2012 Discontinued IVP, Drug form: INJ, Q8H, Dosing Weight 131.818, kg, PRN Nausea & Vomiting, Start date: 07/09/12 4:12:00, Duration: 30 day, Stop date: 08/08/12 4:11:00 acetaminophen 650 mg, 20.3 mL, 07/09/2012 07/13/2012 Discontinued Route: PO, Drug form: LIQ, Q4H, Dosing Weight 131.818, kg, PRN Pain 1-3/Temp > 100.4 F, Start date: 05/08/13 4:12:00, Duration: 30 day, Stop date: 08/08/12 4:11:00 Exforge HCT 10 mg-320 mg-25 1 tab, PO, Daily, 30 07/11/2012 Ordered mg oral tablet tab, Substitution Allowed, Maintenance, TAB hydrochlorothiazide 25 mg 25 mg, 1 tab, Route: 07/12/2012 07/13/2012 Discontinued oral tablet PO, Drug form: TAB, Daily, Start date: 07/12/12 9:00:00, Duration: 30 day, Stop date: 08/10/12 9:00:00 Diovan 320 mg, 2 tab, Route: 07/12/2012 07/13/2012 Discontinued PO, Drug form: TAB, Daily, Start date: 07/12/12 9:00:00, Duration: 30 day, Stop date: 08/10/12 9:00:00 Vital Signs Most recent to oldest 1 2 3 [Reference Range]: Height 182.8 cm 182.88 cm (07/09/2012 04:30:00) (07/08/2012 21:07:00) Temperature Oral 97.6 DegF 98.1 DegF 97.6 DegF [96.4-99.1 DegF] (07/13/2012 12:00:00) (07/13/2012 07:45:00) (07/13/2012 04: 47:00) Systolic Blood Pressure 131 mmHg 150 mmHg 130 mmHg [90-140 mmHg] (07/13/2012 12:00:00) *HI* (07/13/2012 04:47:00) (07/13/2012 07:45:00) Diastolic Blood Pressure 75 mmHg 90 mmHg 78 mmHg [60-90 mmHg] (07/13/2012 12:00:00) (07/13/2012 07:45:00) (07/13/2012 04:47: 00) Respiratory Rate [14-20 20 BRMIN 17 BRMIN 20 BRMIN BRMIN] (07/13/2012 12:00:00) (07/13/2012 07:45:00) (07/13/2012 04:47:00) Peripheral Pulse Rate 81 bpm 61 bpm 63 bpm [60-100 bpm] (07/13/2012 12:00:00) (07/13/2012 07:45:00) (07/13/2012 04:47: 00) Weight 131 kg 131.818 kg (07/09/2012 04:30:00) (07/08/2012 21:07:00) Results BEDSIDE GLUCOSE TESTING Most recent to oldest 1 2 3 [Reference Range]: Gluc POC Lifscn [70-99 154 mg/dL 1 154 mg/dL 2 145 mg/dL 3 mg/dL] *HI* *HI* *HI* (07/13/2012 05:45:00) (07/12/2012 21:33:00) (07/12/2012 16:13:00) Comment1 Notify RN/MD Assess patient Assess patient *NA* *NA* *NA* (07/12/2012 11:04:00) (07/11/2012 16:24:00) (07/11/2012 11:58:00) Comment2 Notify RN/MD Notify RN/MD *NA* *NA* (07/11/2012 16:24:00) (07/11/2012 11:58:00) 1Interpretive Data: Upper Reportable Limit: 200 mg/dL.2Interpretive Data: Upper Reportable Limit: 200 mg/dL.3Interpretive Data: Upper Reportable Limit: 200 mg/dL.URINALYSIS Most recent to oldest [Reference Range]: 1 2 3 UA Turbidity [Clear] Marked *ABN* (07/09/2012 01:20:00) UA Color Amy *NA* (07/09/2012 01:20:00) UA pH [5.0-8.0] 5.0 (07/09/2012 01:20:00) UA Spec Grav [<=1.030] 1.021 (07/09/2012 01:20:00) UA Glucose [Negative mg/dL] 500 mg/dL *ABN* (07/09/2012 01:20:00) UA Blood [Negative] Negative (07/09/2012 01:20:00) UA Ketones [Negative mg/dL] Negative mg/dL *NA* (07/09/2012 01:20:00) UA Protein [Negative mg/dL] Negative mg/dL (07/09/2012 01:20:00) UA Urobilinogen [0.1-1.0 mg/dL] <=1.0 mg/dL *NA* (07/09/2012 01:20:00) UA Bili [Negative] Negative *NA* (07/09/2012 01:20:00) UA Leuk Est [Negative] Negative (07/09/2012 01:20:00) UA Nitrite [Negative] Negative (07/09/2012 01:20:00) UA Sq Epi None Seen *NA* (07/09/2012 01:20:00) UA Amorph Fara [None Seen /HPF] Many /HPF *ABN* (07/09/2012 01:20:00) CHEMISTRY Most recent to oldest 1 2 3 [Reference Range]: Sodium Lvl [135-145 mEq/L] 140 mEq/L 140 mEq/L 137 mEq/L (07/11/2012 07:11:00) (07/10/2012 04:33:00) (07/09/2012 00:10:00) Potassium Lvl [3.5-5.1 4.0 mEq/L 3.9 mEq/L 3.5 mEq/L mEq/L] (07/11/2012 07:11:00) (07/10/2012 04:33:00) (07/09/2012 00:10:00) Chloride Lvl [95-109 mEq/L] 103 mEq/L 102 mEq/L 101 mEq/L (07/11/2012 07:11:00) (07/10/2012 04:33:00) (07/09/2012 00:10:00) CO2 [24-32 mEq/L] 29 mEq/L 28 mEq/L 28 mEq/L (07/11/2012 07:11:00) (07/10/2012 04:33:00) (07/09/2012 00:10:00) AGAP [10.0-20.0 mEq/L] 12.0 mEq/L 13.9 mEq/L 11.5 mEq/L (07/11/2012 07:11:00) (07/10/2012 04:33:00) (07/09/2012 00:10:00) Creatinine Lvl [0.5-1.4 0.9 mg/dL 0.9 mg/dL 0.8 mg/dL mg/dL] (07/11/2012 07:11:00) (07/10/2012 04:33:00) (07/09/2012 00:10:00) eGFR 88 mL/min/1.73m2 4 88 mL/min/1.73m2 5 92 mL/min/1.73m2 6 *NA* *NA* *NA* (07/11/2012 07:11:00) (07/10/2012 04:33:00) (07/09/2012 00:10:00) BUN [7-22 mg/dL] 9 mg/dL 9 mg/dL 13 mg/dL (07/11/2012 07:11:00) (07/10/2012 04:33:00) (07/09/2012 00:10:00) B/C Ratio [6-25] 10 10 16 (07/11/2012 07:11:00) (07/10/2012 04:33:00) (07/09/2012 00:10:00) Glucose Lvl [70-99 mg/dL] 138 mg/dL 7 140 mg/dL 8 154 mg/dL 9 *HI* *HI* *HI* (07/11/2012 07:11:00) (07/10/2012 04:33:00) (07/09/2012 00:10:00) Total Protein [6.4-8.4 7.0 g/dL 6.9 g/dL 8.1 g/dL g/dL] (07/11/2012 07:11:00) (07/10/2012 04:33:00) (07/09/2012 00:10:00) Albumin Lvl [3.5-5.0 g/dL] 3.4 g/dL 3.6 g/dL 4.1 g/dL *LOW* (07/10/2012:33:00) (07/09/2012 00:10:00) (07/11/2012 07:11:00) Globulin [2.0-4.0 g/dL] 3.6 g/dL 3.3 g/dL 4.0 g/dL (07/11/2012 07:11:00) (07/10/2012 04:33:00) (07/09/2012 00:10:00) A/G Ratio [0.7-1.6] 0.9 1.1 1.0 (07/11/2012 07:11:00) (07/10/2012 04:33:00) (07/09/2012 00:10:00) Calcium Lvl [8.5-10.5 8.6 mg/dL 8.9 mg/dL 8.9 mg/dL mg/dL] (07/11/2012 07:11:00) (07/10/2012 04:33:00) (07/09/2012 00:10:00) ALT [0-65 unit/L] 26 unit/L 23 unit/L 34 unit/L (07/11/2012 07:11:00) (07/10/2012 04:33:00) (07/09/2012 00:10:00) AST [0-37 unit/L] 11 unit/L 10 unit/L 13 unit/L (07/11/2012 07:11:00) (07/10/2012 04:33:00) (07/09/2012 00:10:00) Alk Phos [39-136 unit/L] 80 unit/L 78 unit/L 114 unit/L (07/11/2012 07:11:00) (07/10/2012 04:33:00) (07/09/2012 00:10:00) Bili Total [0.2-1.3 mg/dL] 0.7 mg/dL 1.0 mg/dL 0.6 mg/dL (07/11/2012 07:11:00) (07/10/2012 04:33:00) (07/09/2012 00:10:00) Lactic Acid Lvl [0.5-2.2 2.0 mMol/L mMol/L] (07/09/2012 00:10:00) 4Result Comment: The eGFR is calculated using [...] eGFR should be multiplied by the estimated BMI.6Result Comment: The eGFR is calculated using the [...] eGFR should be multiplied by the estimated BMI.7Interpretive Data: Adult reference range values reflect the clinical guidelines of the [place] [employer].8Interpretive Data: Adult reference range values reflect the clinical guidelines of the [place] [employer].9Interpretive Data: Adult reference range values reflect the clinical guidelines of the [place] [employer].HEMATOLOGY Most recent to oldest 1 2 3 [Reference Range]: WBC [3.7-10.4 K/CMM] 7.9 K/CMM 8.0 K/CMM 11.2 K/CMM (07/11/2012 07:11:00) (07/10/2012 04:33:00) *HI* (07/09/2012 00:10:00) RBC [4.70-6.10 M/CMM] 4.71 M/CMM 4.71 M/CMM 5.02 M/CMM (07/11/2012 07:11:00) (07/10/2012 04:33:00) (07/09/2012 00:10:00) Hgb [14.0-18.0 g/dL] 13.6 g/dL 13.6 g/dL 13.4 g/dL *LOW* *LOW* *LOW* (07/11/2012 07:11:00) (07/11/2012 07:11:00) (07/10/2012 04:33:00) Hct [42.0-54.0 %] 39.6 % 39.6 % 40.6 % *LOW* *LOW* *LOW* (07/11/2012 07:11:00) (07/11/2012 07:11:00) (07/10/2012 04:33:00) MCV [80.0-94.0 fL] 84.1 fL 86.0 fL 85.8 fL (07/11/2012 07:11:00) (07/10/2012 04:33:00) (07/09/2012 00:10:00) MCH [27.0-31.0 pg] 28.9 pg 28.5 pg 28.9 pg (07/11/2012 07:11:00) (07/10/2012 04:33:00) (07/09/2012 00:10:00) MCHC [32.0-36.0 g/dL] 34.4 g/dL 33.1 g/dL 33.7 g/dL (07/11/2012 07:11:00) (07/10/2012 04:33:00) (07/09/2012 00:10:00) RDW [11.5-14.5 %] 13.5 % 13.7 % 13.6 % (07/11/2012 07:11:00) (07/10/2012 04:33:00) (07/09/2012 00:10:00) Platelet [133-450 K/CMM] 274 K/CMM 259 K/CMM 284 K/CMM (07/11/2012 07:11:00) (07/10/2012 04:33:00) (07/09/2012 00:10:00) MPV [7.4-10.4 fL] 7.1 fL 7.1 fL 7.5 fL *LOW* *LOW* (07/09/2012 00:10:00) (07/11/2012 07:11:00) (07/10/2012 04:33:00) Segs [45.0-75.0 %] 58.5 % 63.2 % 62.3 % (07/11/2012 07:11:00) (07/10/2012 04:33:00) (07/09/2012 00:10:00) Lymphocytes [20.0-40.0 %] 29.2 % 23.6 % 25.7 % (07/11/2012 07:11:00) (07/10/2012 04:33:00) (07/09/2012 00:10:00) Monocytes [2.0-12.0 %] 9.9 % 10.4 % 10.4 % (07/11/2012 07:11:00) (07/10/2012 04:33:00) (07/09/2012 00:10:00) Eosinophils [0.0-4.0 %] 1.6 % 1.9 % 1.1 % (07/11/2012 07:11:00) (07/10/2012 04:33:00) (07/09/2012 00:10:00) Basophils [0.0-1.0 %] 0.8 % 0.9 % 0.5 % (07/11/2012 07:11:00) (07/10/2012 04:33:00) (07/09/2012 00:10:00) Segs-Bands # [1.5-8.1 4.6 K/CMM 5.1 K/CMM 7.0 K/CMM K/CMM] (07/11/2012 07:11:00) (07/10/2012 04:33:00) (07/09/2012 00:10:00) Lymphocytes # [1.0-5.5 2.3 K/CMM 1.9 K/CMM 2.9 K/CMM K/CMM] (07/11/2012 07:11:00) (07/10/2012 04:33:00) (07/09/2012 00:10:00) Monocytes # [0.0-0.8 0.8 K/CMM 0.8 K/CMM 1.2 K/CMM K/CMM] (07/11/2012 07:11:00) (07/10/2012 04:33:00) *HI* (07/09/2012 00:10:00) Eosinophils # [0.0-0.5 0.1 K/CMM 0.2 K/CMM 0.1 K/CMM K/CMM] (07/11/2012 07:11:00) (07/10/2012 04:33:00) (07/09/2012 00:10:00) Basophils # [0.0-0.2 0.1 K/CMM 0.1 K/CMM 0.1 K/CMM K/CMM] (07/11/2012 07:11:00) (07/10/2012 04:33:00) (07/09/2012 00:10:00) Sed Rate [0-15 mm/hr] 31 mm/hr *HI* (07/09/2012 09:45:00) PT [12.0-14.7 seconds] 13.5 seconds 13.0 seconds (07/10/2012 04:33:00) (07/09/2012 00:10:00) INR [0.85-1.17] 1.01 10 0.96 11 (07/10/2012 04:33:00) (07/09/2012 00:10:00) PTT [22.9-35.8 seconds] 30.5 seconds 12 30.7 seconds 13 (07/10/2012 04:33:00) (07/09/2012 00:10:00) 10Interpretive Data: RECOMMENDED RANGES FOR PROTIME INR: 2.0-3.0 for most medical and surgical thromboembolic states. 2.5-3.5 for artificial heart valves and recurrent embolism. INR SHOULD BE USED ONLY FOR PATIENTS ON STABLE ANTICOAGULANT THERAPY.11Interpretive Data: RECOMMENDED RANGES FOR PROTIME INR: 2.0-3.0 for most medical and surgical thromboembolic states. 2.5-3.5 for artificial heart valves and recurrent embolism. INR SHOULD BE USED ONLY FOR PATIENTS ON STABLE ANTICOAGULANT THERAPY.12Interpretive Data: Heparin Therapeutic Range: 57 - 92 [id number] Data: Heparin Therapeutic Range: 57 - 92 SecondsIMMUNOLOGY Most recent to oldest [Reference Range]: 1 2 3 CRP, High Sensitivity 12.8 mg/L 14 *NA* (07/09/2012 09:45:00) 14Interpretive Data: Low Risk: <1.0 mg/L Average Risk: 1.0 - 3.0 mg/L High Risk: >3.0 mg/L Inflammation: >10.0 mg/L Microbiology Reports PROCEDURE:Culture: Urine STATUS: Auth (Verified) BODY SITE: COLLECTED DATE/TIME: 07/09/2012 01:20:00 SOURCE: Urine, Clean Catch FREE TEXT SOURCE: FINAL REPORTS Final Report<10,000 CFU/mL Gram Negative Rods, Lactose Fermenters <10,000 CFU/mL Skin LouPRELIMINARY REPORTS Preliminary ReportHolding For Better Growth PROCEDURE:Culture: Blood STATUS: Auth (Verified) BODY SITE: Left Hand COLLECTED DATE/TIME: 07/09/2012 00:55:00 SOURCE: Blood FREE TEXT SOURCE: FINAL REPORTS Final ReportNo Growth At 5 DaysPRELIMINARY REPORTS* Preliminary ReportNo Growth At 2 Days Preliminary ReportNo Growth ; Holding Preliminary ReportNo Growth At 1 Day Preliminary ReportNo Growth At 4 Days Preliminary ReportNo Growth At 3 Days PROCEDURE: Culture: Blood STATUS: Auth (Verified) BODY SITE: Right Hand COLLECTED DATE/TIME: 07/09/2012 00:40:00 SOURCE: Blood FREE TEXT SOURCE: FINAL REPORTS Final ReportNo Growth At 5 DaysPRELIMINARY REPORTS* Preliminary ReportNo Growth At 3 Days Preliminary ReportNo Growth ; Holding Preliminary ReportNo Growth At 4 Days Preliminary ReportNo Growth At 1 Day Preliminary ReportNo Growth At 2 Days Procedures Procedures Date Related Diagnosis Gastric bypass Hemorrhoidectomy Insertion of coronary artery stent
--- NOTE | 2018-01-23 21:22 | RAD REPORT ---
EXAM DESCRIPTION: RAD - Foot Right 3 View - 01/23/2018 9:07 pm CLINICAL HISTORY: wound, eval for osteo COMPARISON: FOOT W OBLIQUES dated 04/27/2007 FINDINGS: Flatfoot deformity is seen with significant intertarsal and tarsal metatarsal degenerative changes with findings suggesting early Charcot joint. Prominent calcaneal spurs are present. Soft ti ssue wound is seen along the lateral margin of the midfoot. Radiographic evidence of underlying osteo myelitis is not seen at this time.
[2018-01-23] MEDS ORDERED: VANCOMYCIN 1 GM/250 ML BAG ONE (21:41)
[2018-01-23] MEDS ORDERED: CEFEPIME 1 GM/100 ML BAG IV ONE (21:41)
[2018-01-23 22:06] LABS: Absolute Lymphocytes (CBC) 1.1 K/uL (0.7-4.9); Absolute Monocytes 0.6 K/uL (0.1-1.3); Absolute Neutrophil 2.7 K/uL (1.8-8.0); Basophils % 0.9 % (0-1.3); Hematocrit 37.3 % (39.6-49.0); Lymphocytes % 24.9 % (15.3-44.8); MCH 29.1 pg (27.0-35.0); MCV 84.7 fL (80-100); MPV 7.3 fL (7.6-11.3); RBC Red Blood Cell Count 4.41 M/uL (4.33-5.43)
[2018-01-23 22:20] LABS: Potassium 3.7 mmol/L (3.5-5.1)
[2018-01-23] MEDS ORDERED: ONDANSETRON 4 MG/2 ML VIAL IV PRN (22:53)
[2018-01-23] MEDS ORDERED: MORPHINE 2 MG/ML SYR IV PRN (22:53)
[2018-01-23] MEDS ORDERED: ACETAMINOPHEN 500 MG TAB PO PRN (22:53)
--- NOTE | 2018-01-23 22:53 | EDPHYS ---
Physician Documentation [facility] Name: Dre Prieto Age: 72 yrs Sex: Male : 1945 Arrival Date: 01/23/2018 Time: 19:57 Bed 18 Private MD: ED Physician Gerardo Maharaj HPI: 01/23 20:54 This 72 yrs old Male presents to ER via Unassigned with complaints of rn Puncture Wound To Foot. 20:54 The patient presents with a puncture wound. The complaints affect the right foot. rn Onset: The symptoms/episode began/occurred at an unknown time. Associated signs and symptoms: Pertinent positives: swelling, tingling. Severity of symptoms: At their worst the symptoms were mild, in the emergency department the symptoms are unchanged. The patient has experienced similar episodes in the past. Reports has non-healing ulcer of right foot, has been seeing wound care here, pcp out of town, told by nurse to come in because of increased drainage and green discoloration of skin, no fever.. Historical: - Allergies: 21:27 No Known Allergies; ea - Home Meds: 21:27 clopidogrel oral oral [Active]; Metformin Oral [Active]; atorvastatin oral oral ea [Active]; gabapentin oral oral [Active]; Furosemide Oral [Active]; - PMHx: 21:27 Diabetes - NIDDM; neuropathy; ea - Immunization history:: Adult Immunizations up to date. - Family history:: not pertinent. - Social history:: Smoking status: Patient/guardian denies using tobacco. - Ebola Screening: : No symptoms or risks identified at this time. - Hospitalizations: : No recent hospitalization is reported. ROS: 20:54 Constitutional: Negative for fever, chills, and weight loss, Eyes: Negative for injury, rn pain, redness, and discharge, ENT: Negative for injury, pain, and discharge, Cardiovascular: Negative for chest pain, palpitations, and edema, Respiratory: Negative for shortness of breath, cough, wheezing, and pleuritic chest pain, Abdomen/GI: Negative for abdominal pain, nausea, vomiting, diarrhea, and constipation, MS/Extremity: Negative for injury and deformity, Skin: + green discoloration of right foot Neuro: + tingling of bilateral feet Exam: 20:54 Constitutional: Overweight male, no acute distress MS/ Extremity: Diminished rn bilateral pedal pulses, no cyanosis, + right lateral foot with non-healing ulcer along surgical wound edge, + surrounding green skin discoloration with foul smell, no crepitus, no streaking, no fluctuance Vital Signs: 20:50 BP 137 / 68; Pulse 79; Resp 18; Temp 98.9; Pulse Ox 99% ; Weight 131.54 kg; Height 6 ea ft. 0 in. (182.88 cm); 21:33 BP 131 / 78; Pulse 70; Resp 18; Pulse Ox 99% ; ea 22:00 BP 126 / 68; Pulse 68; Resp 18; Pulse Ox 97% on R/A; ea 23:30 BP 129 / 65; Pulse 68; Resp 18; Pulse Ox 97% ; ea 01/24 00:10 BP 128 / 64; Pulse 70; Resp 18; Pulse Ox 99% ; ea 01/23 20:50 Body Mass Index 39.33 (131.54 kg, 182.88 cm) ea MDM: 01/23 20:37 Patient medically screened. rn 22:50 Differential diagnosis: cellulitis, osteomyelitis, pseudomonas infection. Data rn reviewed: vital signs, nurses notes, lab test result(s), radiologic studies, plain films, and as a result, I will admit patient. Counseling: I had a detailed discussion with the patient and/or guardian regarding: the historical points, exam findings, and any diagnostic results supporting the discharge/admit diagnosis, lab results, the need for further work-up and treatment in the hospital. Response to treatment: the patient's symptoms have mildly improved after treatment. Admission orders: after a detailed discussion of the patient's condition and case, the admit orders are written by me. 01/23 20:45 Order name: CBC with Diff; Complete Time: 22:33 rn 01/23 20:45 Order name: Blood Culture Adult (2) rn 01/23 20:45 Order name: Wound Culture rn 01/23 20:46 Order name: BMP; Complete Time: 22:33 rn 01/23 22:58 Order name: Basic Metabolic Panel EDMS 01/23 22:58 Order name: Basic Metabolic Panel EDMS 01/23 20:45 Order name: IV Start; Complete Time: 23:34 rn 01/23 20:45 Order name: XRAY Foot RIGHT 3 View; Complete Time: 21:24 rn 01/23 22:58 Order name: CONS Pharmacy Consult EDRI 01/23 22:58 Order name: NPO EDMS 01/23 22:58 Order name: CBC with Automated Diff EDMS 01/23 22:58 Order name: CBC with Automated Diff EDMS Administered Medications: 23:16 Drug: Cefepime 1 grams Route: IVPB; Rate: 200 ml/hr; Infused Over: 30 mins; Site: left ea antecubital; 23:40 Follow up: IV Status: Completed infusion ea 23:40 Follow up: Response: No adverse reaction; IV Status: Completed infusion ea 23:49 Drug: vancoMYCIN 1 grams Route: IVPB; Infused Over: 2 hrs; Site: left antecubital; ea 01/24 00:05 Follow up: IV Status: Infusion continued upon admission ea Disposition: 01/23/18 22:52 Hospitalization ordered by Briseida Aguilar for Inpatient Admission. Preliminary diagnosis is Cellulitis of right lower limb. - Bed requested for Telemetry/MedSurg (Inpatient). - Status is Inpatient Admission. ea - Condition is Stable. - Problem is new. - Symptoms are unchanged. UTI on Admission? No Signatures: Dispatcher [facility] EDRI Suzanne Duran RN RN mw Nieto, Roman, MD MD rn Antunez, Elena, RN RN ea Corrections: (The following items were deleted from the chart) 01/23 23:06 22:52 Hospitalization Ordered by Briseida Aguilar MD for Inpatient Admission. Preliminary diagnosis is Cellulitis of right lower limb. Bed requested for Telemetry/MedSurg (Inpatient). Status is Inpatient Admission. Condition is Stable. Problem is new. Symptoms are unchanged. UTI on Admission? No. rn 01/24 00:52 01/23 23:06 01/23/2018 22:52 Hospitalization Ordered by Briseida Aguilar MD for Inpatient ea Admission. Preliminary diagnosis is Cellulitis of right lower limb. Bed requested for Telemetry/MedSurg (Inpatient). Status is Inpatient Admission. Condition is Stable. Problem is new. Symptoms are unchanged. UTI on Admission? No. mw
--- NOTE | 2018-01-23 22:53 | ER ---
Nurse's Notes [facility] Name: Dre Prieto Age: 72 yrs Sex: Male : 1945 Arrival Date: 01/23/2018 Time: 19:57 Bed 18 Private MD: Diagnosis: Cellulitis of right lower limb Presentation: 01/23 20:50 Presenting complaint: Patient states: Pt reports wound to right foot that has been ea draining and having foul drainage. Transition of care: patient was not received from another setting of care. Onset of symptoms was January 23, 2018. Risk Assessment: Do you want to hurt yourself or someone else? Patient reports no desire to harm self or others. Initial Sepsis Screen: Does the patient meet any 2 criteria? No. Patient's initial sepsis screen is negative. Does the patient have a suspected source of infection? Yes: Skin breakdown/wound. Care prior to arrival: None. 20:50 Method Of Arrival: Ambulatory ea 20:50 Acuity: MARIBETH 3 ea Triage Assessment: 20:50 General: Appears in no apparent distress. Behavior is calm, cooperative, appropriate ea for age. Pain:. Pain: Denies pain. EENT: No signs and/or symptoms were reported regarding the EENT system. Neuro: Level of Consciousness is awake, alert, obeys commands, Oriented to person, place, time, situation. Cardiovascular: Patient's skin is warm and dry. Respiratory: Airway is patent Respiratory effort is even, unlabored, Respiratory pattern is regular, symmetrical. Derm: Wound noted lateral side of right foot. Historical: - Allergies: 21:27 No Known Allergies; ea - Home Meds: 21:27 clopidogrel oral oral [Active]; Metformin Oral [Active]; atorvastatin oral oral ea [Active]; gabapentin oral oral [Active]; Furosemide Oral [Active]; - PMHx: 21:27 Diabetes - NIDDM; neuropathy; ea - Immunization history:: Adult Immunizations up to date. - Family history:: not pertinent. - Social history:: Smoking status: Patient/guardian denies using tobacco. - Ebola Screening: : No symptoms or risks identified at this time. - Hospitalizations: : No recent hospitalization is reported. Screenin:17 Abuse screen: Denies threats or abuse. Nutritional screening: No deficits noted. ea Tuberculosis screening: No symptoms or risk factors identified. Fall Risk None identified. Assessment: 20:50 Reassessment: see triage assessment. ea 21:30 Reassessment: Patient and/or family updated on plan of care and expected duration. Pain ea level reassessed. Patient is alert, oriented x 3, equal unlabored respirations, skin warm/dry/pink. 22:50 Reassessment: Patient and/or family updated on plan of care and expected duration. Pain ea level reassessed. Patient is alert, oriented x 3, equal unlabored respirations, skin warm/dry/pink. 23:00 Reassessment: Patient and/or family updated on plan of care and expected duration. Pain ea level reassessed. Patient is alert, oriented x 3, equal unlabored respirations, skin warm/dry/pink. 01/24 00:09 Reassessment: Patient and/or family updated on plan of care and expected duration. Pain ea level reassessed. Patient is alert, oriented x 3, equal unlabored respirations, skin warm/dry/pink. Report called to Mariangel HUERTA on second floor. Vital Signs: 01/23 20:50 BP 137 / 68; Pulse 79; Resp 18; Temp 98.9; Pulse Ox 99% ; Weight 131.54 kg; Height 6 ea ft. 0 in. (182.88 cm); 21:33 BP 131 / 78; Pulse 70; Resp 18; Pulse Ox 99% ; ea 22:00 BP 126 / 68; Pulse 68; Resp 18; Pulse Ox 97% on R/A; ea 23:30 BP 129 / 65; Pulse 68; Resp 18; Pulse Ox 97% ; ea 01/24 00:10 BP 128 / 64; Pulse 70; Resp 18; Pulse Ox 99% ; ea 01/23 20:50 Body Mass Index 39.33 (131.54 kg, 182.88 cm) ea ED Course: 01/23 19:57 Patient arrived in ED. es 20:37 Gerardo Maharaj MD is Attending Physician. rn 20:50 Arm band placed on right wrist. ea 20:50 Patient has correct armband on for positive identification. Bed in low position. Call ea light in reach. Side rails up X 1. 21:02 Mariangel Santiago RN is Primary Nurse. ea 21:07 XRAY Foot RIGHT 3 View In Process Unspecified. EDMS 21:20 Triage completed. ea 22:52 Briseida Aguilar MD is Hospitalizing Provider. rn 22:58 Inserted saline lock: 20 gauge in left antecubital area, using aseptic technique. bb Missed attempt(s): 20 gauge in right antecubital area. Bleeding controlled, band aid applied, catheter tip intact. 23:20 No provider procedures requiring assistance completed. Patient admitted, IV remains in ea place. Administered Medications: 23:16 Drug: Cefepime 1 grams Route: IVPB; Rate: 200 ml/hr; Infused Over: 30 mins; Site: left ea antecubital; 23:40 Follow up: IV Status: Completed infusion ea 23:40 Follow up: Response: No adverse reaction; IV Status: Completed infusion ea 23:49 Drug: vancoMYCIN 1 grams Route: IVPB; Infused Over: 2 hrs; Site: left antecubital; ea 01/24 00:05 Follow up: IV Status: Infusion continued upon admission ea Outcome: 01/23 22:52 Decision to Hospitalize by Provider. rn 23:20 Instructed on the need for admit, Demonstrated understanding of instructions. ea 01/24 00:10 Admitted to Med/surg accompanied by tech, room 219, Report called to Mariangel HUERTA on ea second floor 00:52 Patient left the ED. ea Signatures: Dispatcher [employer] Anel Walden Brenda RN RN Gerardo Yu MD MD rn Antunez, Elena, RN RN
[2018-01-24] MEDS: Levofloxacin500mg IV 500 MG/100 ML BAG IV SCH ×2 (02:23→22:14)
[2018-01-24] MEDS: NA CHLORIDE 0.9% 1,000 ML IV SCH ×2 (02:24→12:20)
[2018-01-24 06:08] LABS: Absolute Lymphocytes (CBC) 0.8 K/uL (0.7-4.9); Absolute Monocytes 0.5 K/uL (0.1-1.3); Absolute Neutrophil 2.9 K/uL (1.8-8.0); Basophils % 0.8 % (0-1.3); Eosinophils % 3.5 % (0-4.4); Hematocrit 36.3 % (39.6-49.0); Lymphocytes % 18.1 % (15.3-44.8); MCH 28.8 pg (27.0-35.0); MCV 84.8 fL (80-100); MPV 7.4 fL (7.6-11.3); Monocytes % 11.9 % (3.3-12.3); RBC Red Blood Cell Count 4.28 M/uL (4.33-5.43)
[2018-01-24 06:11] LABS: Urine Appearance CLEAR; Urine Bilirubin NEGATIVE (NEG); Urine Blood NEGATIVE (NEG); Urine Color YELLOW; Urine Glucose 1+ (NEG); Urine Protein NEGATIVE (NEG); Urine Specific Gravity 1.015 (1.005-1.030); Urine Urobilinogen 0.2 mg/dL (0.2-1.0)
[2018-01-24 06:23] LABS: Potassium 3.4 mmol/L (3.5-5.1)
[2018-01-24 06:54] LABS: Urine Microscopic Reflex NO UMIC
[2018-01-24] MEDS ORDERED: CEFEPIME 1 GM/VIAL IV SCH (09:00)
[2018-01-24] MEDS: CEFEPIME/SWI 1gm 1 GM/10 ML SYR IV SCH ×2 (09:18→22:14)
--- NOTE | 2018-01-24 11:27 | RAD REPORT ---
EXAM DESCRIPTION: MRI - Foot Right Wo Cont - 01/24/2018 10:48 am CLINICAL HISTORY: osteomyelitis COMPARISON: Foot Right 3 View dated 01/23/2018 FINDINGS: Advanced degenerative and destructive changes are present involving the intertarsal and ta rsal metatarsal joints. There is ill-defined soft tissue seen in this region along with mild reactive marrow edema in the osseous structures. Prominent flatfoot deformity is also seen. This pattern is t ypical of developing Charcot arthropathy. Diminished marrow signal is seen along the base of the fifth metatarsal with mild elevated T2/IR sign al in this region, adjacent to a prominent soft tissue ulceration. Findings are suspicious for early/ developing osteomyelitis. No drainable fluid collection seen. Achilles tendon and plantar fascia are intact. IMPRESSION: Developing midfoot Charcot arthropathy is seen with flatfoot deformity. Early osteomyelitis changes suspected base of the fifth metatarsal adjacent to prominent soft tissue wound.
--- NOTE | 2018-01-24 13:24 | P.HP ---
Certification for Inpatient Patient admitted to: Inpatient With expected LOS: >2 Midnights Patient will require the following post-hospital care: None Practitioner: I am a practitioner with admitting privileges, knowledge of patient current condition, hospital course, and medical plan of care. Services: Services provided to patient in accordance with Admission requirements found in Title 42 Section 412.3 of the Code of Federal Regulations Patient History Date of Service: 01/23/18 Reason for admission: Osteomyelitis History of Present Illness: Patient is a 72yo who was admitted to the hospital with drainage from the right foot. Patient has greenish discharge. Patient looks to have Pseudomona's infection. Patient has some tenderness and swelling in that region. The patient developed infection a couple years ago. He required surgery. The infection appeared to have healed however a few months ago he had stated that he look like it started draining again. Since then the wound has never completely closed. He has been treated here at the wound healing Center. Patient will be worked up for possible osteomyelitis. Allergies No Known Allergies Allergy (Verified 06/26/17 08:15) Home Medications: Amlodipine/Valsartan/Hcthiazid [Ovhji-Ndzya-Bsyy 5-160-25 mg] 1 tab PO DAILY Atorvastatin Calcium [Lipitor] 40 mg PO DAILY 01/24/18 Clopidogrel Bisulfate [Plavix*] 75 mg PO DAILY 01/24/18 Furosemide [Lasix*] 1 tab PO DAILY 01/24/18 Gabapentin 1 cap PO TID 01/24/18 Metformin HCl [Glucophage*] 500 mg PO BID 01/24/18 Tamsulosin HCl 1 cap PO DAILY 01/24/18 - Past Medical/Surgical History Has patient received pneumonia vaccine in the past: Yes Diabetic: Yes -: DM -: Bone Infection -: CAD -: Heart Stent -: Gastric Stapling -: Toe Amputation 2nd and 5th left foot - Family History Father Medical History: Heart disease, Other (see notes) Notes: malaria Mother Medical History: Heart disease - Social History Smoking Status: Never smoker Alcohol use: No CD- Drugs: No Caffeine use: Yes Place of Residence: Home Review of Systems 10-point ROS is otherwise unremarkable Physical Examination - Vital Signs Temperature: 97.2 F Blood Pressure: 136/65 Pulse: 67 Respirations: 16 Pulse Ox (%): 96 - Physical Exam General: Alert, In no apparent distress, Oriented x3 HEENT: Atraumatic, PERRLA, Mucous membr. moist/pink, EOMI, Sclerae nonicteric Neck: Supple, 2+ carotid pulse no bruit, No LAD, Without JVD or thyroid abnormality Respiratory: Clear to auscultation bilaterally, Normal air movement Cardiovascular: Regular rate/rhythm, Normal S1 S2 Gastrointestinal: Normal bowel sounds, Soft and benign, Non-distended, No tenderness, No rebound, No guarding Musculoskeletal: No clubbing, Swelling, Tenderness Integumentary: No rashes Neurological: Normal speech, Normal strength at 5/5 x4 extr, Normal tone, Sensation intact, Cranial nerves 3-12 intact, Normal affect, Abnormal gait Lymphatics: No axilla or inguinal lymphadenopathy - Studies Laboratory Data (last 24 hrs) 01/23/18 21:58: Sodium 139, Potassium 3.7, BUN 16, Creatinine 1.20, Glucose 226 H 01/23/18 21:58: WBC 4.6, Hgb 12.8 L, Hct 37.3 L, Plt Count 266 Microbiology Data (last 24 hrs): 01/23/18 21:13 Wound - Right Foot Gram Stain - Final Assessment & Plan - Problems (Diagnosis) (1) Osteomyelitis Current Visit: Yes Status: Acute (2) DM2 (diabetes mellitus, type 2) Current Visit: Yes Status: Acute (3) CAD (coronary artery disease) Current Visit: Yes Status: Acute (4) Charcot foot due to diabetes mellitus Current Visit: Yes Status: Acute - Plan 1. Continue with IV antibiotic 2. Continue with local wound care 3. Wound care consultation/surgical consultation 4. Gentle IV hydration 5. Monitor CBC 6. Strict blood sugar monitoring 7. Pain control 8. GI and DVT prophylaxis Discharge Plan: Home Plan to discharge in: Greater than 2 days - Advance Directives Does patient have a Living Will: Yes Does patient have a Durable POA for Healthcare: Yes - Code Status/Comfort Care Code Status Assessed: Yes Code Status: Full Code Critical Care: No Time Spent Managing PTS Care (In Minutes): 50
--- NOTE | 2018-01-24 13:39 | RAD REPORT ---
EXAM DESCRIPTION: US - Lower Extremity Artery Uni Ltd - 01/24/2018 12:57 pm CLINICAL HISTORY: Leg pain, osteomyelitis COMPARISON: None. TECHNIQUE: Grayscale and Doppler evaluation of the right lower extremity arterial tree performed. Ve locity values and waveforms were obtained. Visual inspection of the lower extremity arterial tree per formed. FINDINGS: The right common femoral and superficial femoral arteries show a predominantly monophasic waveform pattern. There was some minimal biphasic flow demonstrated. Popliteal and ankle arteries nanda w a fully monophasic waveform pattern. On visual inspection, no focal flow restricting lesion. No occ lusion. Right common femoral artery velocity was 135 cm/second. Femoral artery velocity values range from 95- 111 cm/second. Popliteal artery was 60 cm/second with the posterior tibial 58 cm/second and the dorsa lis pedis artery 47 cm/second. IMPRESSION: Significant right lower extremity peripheral arterial disease is present without an occl usion or focal flow restrictive lesion.
--- NOTE | 2018-01-24 16:13 | P.PN ---
Subjective Date of Service: 01/24/18 Chief Complaint: Osteomyelitis Patient seen and examined at bedside. Daughter at bedside. Case discussed with nursing staff. Patient reports doing okay, complaints of mild right foot pain. Otherwise stable, no acute events overnight. Review of Systems As noted Physical Examination - Vital Signs Temperature: 97.2 F Blood Pressure: 136/65 Pulse: 67 Respirations: 16 Pulse Ox (%): 96 - Physical Exam General: Alert, In no apparent distress, Oriented x3 HEENT: Atraumatic, PERRLA, EOMI Neck: Supple, JVD not distended Respiratory: Clear to auscultation bilaterally, Normal air movement Cardiovascular: Regular rate/rhythm, Normal S1 S2 Gastrointestinal: Normal bowel sounds, No tenderness Musculoskeletal: No tenderness, Other (2nd and 4th toe amputated on the left foot) Integumentary: Other (Ulcer noted on right lower extremity, tender on possible tunneling; bluish discoloration noted, erythema as well.) Neurological: Normal speech, Normal tone, Normal affect Lymphatics: No axilla or inguinal lymphadenopathy - Studies Laboratory Data (last 24 hrs) 01/23/18 21:58: Sodium 139, Potassium 3.7, BUN 16, Creatinine 1.20, Glucose 226 H 01/23/18 21:58: WBC 4.6, Hgb 12.8 L, Hct 37.3 L, Plt Count 266 Microbiology Data (last 24 hrs): 01/23/18 21:13 Wound - Right Foot Gram Stain - Final Medications List Reviewed: Yes Assessment And Plan - Plan This is a 72-year-old male with: Osteomyelitis MRI with evidence of bone involvement/osteomyelitis. Continue IV antibiotics with vancomycin, follow up cultures. Will likely need long-term IV antibiotics via PICC line. Left lower extremity wound Foul-smelling wound on left lower extremity. Wound cultures sent, pending. Wound care consulted, Dr. Santana is his outpatient doctor. Peripheral vascular disease Arterial/venous Dopplers pending. This positive, may consult cardiology for potential surgical intervention. Diabetes mellitus, type 2 Strict blood sugar monitoring, control. Sliding scale insulin ordered. Will adjust as needed Coronary artery disease, requiring stent placement Stable at this time, restart home medications Left foot 2nd and 5th toe amputation Stable at this time Charcot foot due to diabetes mellitus DVT prophylaxis: GI prophylaxis: Diet: Disposition: Pending symptomatic improvement, cultures for IV antibiotic choice and time. Will likely need PICC line for long-term IV antibiotics. Wound care consultation. Physician Review: Patient Assessed, Agree with Above Assessment and Plan Time Spent Managing PTS Care (In Minutes): 55
[2018-01-25] MEDS: NA CHLORIDE 0.9% 1,000 ML IV SCH ×3 (02:16→21:52)
[2018-01-25] MEDS: hydroCHLOROthiazide 25 MG TAB PO SCH (08:25)
[2018-01-25] MEDS: TAMSULOSIN 0.4 MG SR CAP PO SCH (08:25)
[2018-01-25] MEDS: ATORVASTATIN 40 MG TAB PO SCH (08:25)
[2018-01-25] MEDS: VALSARTAN 80 MG TAB PO SCH (08:25)
[2018-01-25] MEDS: GABAPENTIN 300 MG CAP PO SCH ×3 (08:25→21:51)
[2018-01-25] MEDS: FUROSEMIDE 40 MG TABLET PO SCH (08:25)
[2018-01-25] MEDS: CLOPIDOGREL 75 MG TABLET PO SCH (08:25)
[2018-01-25] MEDS: AMLODIPINE 5 MG TAB PO SCH (08:26)
[2018-01-25] MEDS: METFORMIN HCL 500 MG TAB PO SCH ×2 (08:26→17:15)
[2018-01-25] MEDS: CEFEPIME/SWI 1gm 1 GM/10 ML SYR IV SCH (08:26)
[2018-01-25] MEDS ORDERED: VALSARTAN 160 MG TAB PO SCH (09:00)
[2018-01-25] MEDS ORDERED: VALSARTAN PO SCH (09:00)
[2018-01-25] MEDS ORDERED: AMLODIPINE PO SCH (09:00)
[2018-01-25] MEDS ORDERED: HCTHIAZID PO SCH (09:00)
--- NOTE | 2018-01-25 10:35 | P.CNS ---
Date of Consult: 01/25/18 Patient of mine in the wound care center. Treating a chronic right lateral foot ulcer. The ulcer was turning green so he came to the ER. Was admitted. Had an MRI. which showed a possible osteomyelitis. The patient has a positive wound culture. However blood cultures are negative. wbc count is not elevated. He has no reported pain. 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 Improved from previous visit chronic wound. Improving. Positive skin cultures. Blood cultures are negative at 48 hours. Don't feel this is osteomyelitis. will have him follow up in the wound care center. We can have him on oral antibiotics. Will check an esr when he comes see's me in the wound care center. Thank you for allowing me to take part in his care
--- NOTE | 2018-01-25 13:15 | P.PN ---
Subjective Date of Service: 01/25/18 Chief Complaint: Osteomyelitis Patient seen and examined at bedside. Daughter at bedside. Case discussed with nursing staff. Reports improved pain. No acute events overnight. Review of Systems As noted Physical Examination - Vital Signs Temperature: 96.9 F Blood Pressure: 132/79 Pulse: 83 Respirations: 16 Pulse Ox (%): 97 - Physical Exam General: Alert, In no apparent distress, Oriented x3 HEENT: Atraumatic, PERRLA, EOMI Neck: Supple, JVD not distended Respiratory: Clear to auscultation bilaterally, Normal air movement Cardiovascular: Regular rate/rhythm, Normal S1 S2 Gastrointestinal: Normal bowel sounds, No tenderness Musculoskeletal: No tenderness Integumentary: Rash(es), Skin breakdown, Diabetic ulcer Neurological: Normal speech, Normal tone, Normal affect - Studies Microbiology Data (last 24 hrs): 01/23/18 21:13 Wound - Right Foot Gram Stain - Final Medications List Reviewed: Yes Assessment And Plan - Plan This is a 72-year-old male with: Osteomyelitis, possible Symptomatically improving, no pain at the site of wound. Wound care is consulted, did not feel that this osteomyelitis. He can be switched over to oral antibiotics. Will monitor for next 24 hr for blood cultures. If negative , can be discharged home tomorrow on oral Bactrim. He will continue to follow wound care center and they will check labs there. Left lower extremity wound Foul-smelling wound on left lower extremity. Wound cultures positive for Wound care consulted, Dr. Santana is his outpatient doctor. Recommendations appreciated Peripheral vascular disease Arterial/venous Dopplers without any evidence of occlusion at this time. No intervention needed at this time Diabetes mellitus, type 2 Strict blood sugar monitoring, control. Sliding scale insulin ordered. Will adjust as needed Coronary artery disease, requiring stent placement Stable at this time, restart home medications Left foot 2nd and 5th toe amputation Stable at this time Charcot foot due to diabetes mellitus DVT prophylaxis: Lovenox GI prophylaxis: Protonix Diet: Diabetic, 1800 Disposition: Monitor blood cultures the next 24 hr, if negative can be discharged home tomorrow on oral Bactrim. Physician Review: Patient Assessed, Agree with Above Assessment and Plan Time Spent Managing PTS Care (In Minutes): 35
[2018-01-25] MEDS: SMZ./TMP. 800/160 MG TABLET PO SCH (21:51)
[2018-01-26] MEDS: NA CHLORIDE 0.9% 1,000 ML IV SCH (04:20)
[2018-01-26] MEDS: TAMSULOSIN 0.4 MG SR CAP PO SCH (08:41)
[2018-01-26] MEDS: FUROSEMIDE 40 MG TABLET PO SCH (08:41)
[2018-01-26] MEDS: GABAPENTIN 300 MG CAP PO SCH ×2 (08:41→14:10)
[2018-01-26] MEDS: VALSARTAN 80 MG TAB PO SCH (08:41)
[2018-01-26] MEDS: CLOPIDOGREL 75 MG TABLET PO SCH (08:42)
[2018-01-26] MEDS: hydroCHLOROthiazide 25 MG TAB PO SCH (08:42)
[2018-01-26] MEDS: METFORMIN HCL 500 MG TAB PO SCH (08:42)
[2018-01-26] MEDS: AMLODIPINE 5 MG TAB PO SCH (08:42)
[2018-01-26] MEDS: SMZ./TMP. 800/160 MG TABLET PO SCH (08:42)
[2018-01-26] MEDS: ATORVASTATIN 40 MG TAB PO SCH (08:43)
--- NOTE | 2018-01-26 17:02 | P.DS ---
Admission Date: 01/23/18 Discharge Date: 01/26/18 Disposition: ROUTINE DISCHARGE Discharge Condition: GOOD Reason for Admission: Osteomyelitis Consultations: Wound care, Dr. Santana Brief History of Present Illness: Patient is a 72yo who was admitted to the hospital with drainage from the right foot. Patient has greenish discharge. Patient looks to have Pseudomona's infection. Patient has some tenderness and swelling in that region. The patient developed infection a couple years ago. He required surgery. The infection appeared to have healed however a few months ago he had stated that he look like it started draining again. Since then the wound has never completely closed. He has been treated here at the wound healing Center. Patient will be worked up for possible osteomyelitis. Hospital Course: Osteomyelitis, possible Symptomatically improving, no pain at the site of wound. Wound care was consulted, did not feel that this osteomyelitis. He can be switched over to oral antibiotics. Will monitor for next 24 hr for blood cultures, which remained negative. He was discharged on home oral Bactrim x2 weeks and with instructions to follow up in the wound Care Center in 1 week. We will continue to check labs and monitor wound. Left lower extremity wound Foul-smelling wound on left lower extremity. Wound cultures positive for Providencia and Staph, both sensitive to bactrim. Wound care consulted, Dr. Santana is his outpatient doctor. Recommendations appreciated Peripheral vascular disease Arterial/venous Dopplers done, without any evidence of occlusion at this time. No interventions during his hospitalization. Diabetes mellitus, type 2 Stable, no medication changes made on discharge. Coronary artery disease, requiring stent placement Remains stable on his home medications. Left foot 2nd and 5th toe amputation Stable Charcot foot due to diabetes mellitus At the time of discharge, patient was alert and oriented x3, hemodynamically stable and pain was well controlled. He was tolerating a regular diet, ambulating without any problems. His symptoms and instructions wire explained to patient, all questions were answered and patient verbalized understanding. Vital Signs/Physical Exam: Temp Pulse Resp BP Pulse Ox 96.9 F 80 16 123/60 95 01/26/18 12:00 01/26/18 12:00 01/26/18 12:00 01/26/18 12:00 01/26/18 12:00 General: Alert, In no apparent distress, Oriented x3 HEENT: Atraumatic, PERRLA, EOMI Neck: Supple, JVD not distended Respiratory: Clear to auscultation bilaterally, Normal air movement Cardiovascular: Regular rate/rhythm, Normal S1 S2 Gastrointestinal: Normal bowel sounds, No tenderness Musculoskeletal: No tenderness Integumentary: Skin lesion, Diabetic ulcer, Arterial ulcer Neurological: Normal speech, Normal tone, Normal affect Lymphatics: No axilla or inguinal lymphadenopathy Laboratory Data at Discharge: WBC 4.4 K/uL (4.3-10.9) 01/24/18 05:07 Hgb 12.3 g/dL (13.6-17.9) L 01/24/18 05:07 Hct 36.3 % (39.6-49.0) L 01/24/18 05:07 Plt Count 251 K/uL (152-406) 01/24/18 05:07 Sodium 140 mmol/L (136-145) 01/24/18 05:07 Potassium 3.4 mmol/L (3.5-5.1) L 01/24/18 05:07 BUN 15 mg/dL (7-18) 01/24/18 05:07 Creatinine 1.00 mg/dL (0.55-1.3) 01/24/18 05:07 Glucose 172 mg/dL (74-106) H 01/24/18 05:07 Home Medications: Amlodipine/Valsartan/Hcthiazid [Kejva-Bstyy-Clly 5-160-25 mg] 1 tab PO DAILY Atorvastatin Calcium [Lipitor] 40 mg PO DAILY 01/24/18 Clopidogrel Bisulfate [Plavix*] 75 mg PO DAILY 01/24/18 Furosemide [Lasix*] 1 tab PO DAILY 01/24/18 Gabapentin 1 cap PO TID 01/24/18 Metformin HCl [Glucophage*] 500 mg PO BID 01/24/18 Tamsulosin HCl 1 cap PO DAILY 01/24/18 Smz./Tmp. [Bactrim Ds 800 MG/160 MG*] 1 tab PO BID #28 tab 01/26/18 New Medications: Smz./Tmp. [Bactrim Ds 800 MG/160 MG*] 1 tab PO BID #28 tab Patient Discharge Instructions: Please follow up with Dr. Santana, Wound care center in 1 week for follow up. New medication sent: Bactrim, twice a day for the infection. Prescription sent to your pharmacy. Diet: ADA Activity: Ad anu Followup: Flash Santana MD [ACTIVE - CAN ADMIT] - (follow up at wound healing center) Physician Review: Patient Assessed, Agree with Above Assessment and Plan Time spent managing pt's care (in minutes): 55
== END 2018-01-26 16:00 | disposition home health service (06) | DRG 541 ==
LOC: ER 19:55 → ERHOLD 22:54 → 2ND 01-24 00:10
PROVIDERS: ADMIT Hospitalist; ATTEND Hospitalist
DX: M86.171 Other acute osteomyelitis, right ankle and foot (principal); B95.61 Methicillin susceptible Staphylococcus aureus infection as the cause of diseases classified elsewhere; E11.51 Type 2 diabetes mellitus with diabetic peripheral angiopathy without gangrene; I25.10 Atherosclerotic heart disease of native coronary artery without angina pectoris; E11.610 Type 2 diabetes mellitus with diabetic neuropathic arthropathy; E11.621 Type 2 diabetes mellitus with foot ulcer; L97.519 Non-pressure chronic ulcer of other part of right foot with unspecified severity; Z95.5 Presence of coronary angioplasty implant and graft; Z89.422 Acquired absence of other left toe(s)
CPT/HCPCS: 36415; 80048; 81003; 82962; 85025; 87040; 87070; 87077; 87186; 87205; 93926; 96365; 96367; 97163; 99285; J0692; J3370; J7030